=== PATIENT | female | born 1950 | race Caucasian/White ===

== ENCOUNTER 2021-03-20 22:53 | Observation (INO) | payer OTHER, SELFPAY ==
--- NOTE | ~2021-03-20 | MR_ITS ---
EXAMINATION: BRAIN MRI WITHOUT CONTRAST CLINICAL INFORMATION: Transient ischemic attack. COMPARISON: CT angiogram of the head and neck 03/21/2021. TECHNIQUE: Multiplanar MR imaging of the brain was performed without contrast. FINDINGS: There are numerous foci of T2 FLAIR signal hyperintensity within the periventricular white matter that most likely represent a chronic manifestation of small vessel ischemia. No acute territorial infarct. No pathological magnetic susceptibility artifact. Intracranial vascular flow voids are maintained. There is no intracranial mass effect or midline shift. No abnormal extra-axial collection. Lateral and third ventricles are normal. No hydrocephalus. Midline structures including the cervicomedullary junction are normal. No acute bone marrow signal changes. There is a right mastoid effusion. Mild mucosal thickening within ethmoid air cells. Globes and orbits are symmetric. MR/MR head/brain wo con IMPRESSION: There are scattered chronic small vessel ischemic changes within the periventricular white matter. No evidence of acute territorial infarct or hemorrhage.
--- NOTE | ~2021-03-20 | CT_ITS ---
EXAMINATION: Unenhanced CT the head; IV contrast enhanced CT angiography of the head and neck; delayed IV contrast-enhanced CT the head CLINICAL INFORMATION: Dysarthria, resolved. COMPARISON: None. TECHNIQUE: Routine unenhanced CT the head with multiple coronal and sagittal reformatted images; IV contrast enhanced CT angiography of the head and neck with multiple 3-D reformatted angiographic thick section MIPS images processed on the technologist workstation under concurrent supervision; delayed IV contrast-enhanced CT the head. Vascular stenoses are made with reference to the NASCET criteria less otherwise specified. This CT examination was performed using dose optimization techniques as appropriate, variously including the following: *Automated exposure control *Adjustment of mA and/or kV according to patient size (this includes techniques or standardized protocols for targeted exams where dose is matched to indication/reason for exam; i.e. extremities or head) *Use of iterative reconstruction technique Intravenous Contrast: Omnipaque 350 70 mL DLP: 2256 mGy-cm FINDINGS: Unenhanced and IV contrast-enhanced CT the head: Mild diffuse commensurate prominence of ventricles and sulci is noted. No intracranial hemorrhage, tumors or acute infarcts are visualized. Bilateral ocular lens extractions are noted. No abnormal enhancement the brain parenchyma is demonstrated. Normal intraluminal opacification is noted within the major intracranial dural sinuses. CT angiography neck: Minimal scattered nonocclusive calcific atherosclerosis is present within the transverse aorta. Common origin of the brachiocephalic and left common carotid arteries is noted. Mild (less than 50% bilateral carotid bulb stenoses are present on the basis of concentric calcific and noncalcific nonulcerative plaque. The left vertebral artery is dominant. CT angiography head: Bilateral type origin of the posterior cerebral arteries is identified. Minimal nonocclusive segmental calcific atherosclerosis of the cavernous portions of the internal carotid arteries is visualized. No large vessel intracranial occlusions are noted. Visualized lung apices are clear. The right lobe of the thyroid is absent and vascular clips are present in the right thyroid bed. No gross cervical lymphadenopathy is identified. Multilevel mild facet hypertrophic changes are visualized. CT/CT angio head neck IMPRESSION: Unenhanced and IV contrast-enhanced CT the head: 1. No acute abnormalities identified. No evidence of acute infarcts or intracranial hemorrhage. CT angiography neck: 1. Mild (less than 50%) bilateral carotid bulb stenoses. No ulcerative plaques. 2. Common origin of the brachiocephalic and left common carotid arteries. CT angiography head: 1. No large vessel intracranial occlusions. 2. Minimal nonocclusive segmental calcific atherosclerosis of the intracranial segments of the internal carotid arteries.
[2021-03-20 22:59] VITALS: BP 181/88; PULSE 67; O2SAT 99; BMI 23.8
--- NOTE | 2021-03-20 22:59 | ECG_ITS ---
Test Reason : STROKE? Blood Pressure : / mmHG Vent. Rate : 060 BPM Atrial Rate : 060 BPM P-R Int : 142 ms QRS Dur : 078 ms QT Int : 420 ms P-R-T Axes : 056 026 043 degrees QTc Int : 420 ms Normal sinus rhythm Normal ECG When compared with ECG of 22-JUL-2002 23:22, No significant change was found Referred By: Celeste Hemphill Electronically Signed By:TERRELL TONY
--- NOTE | 2021-03-20 23:02 | ED_ITS ---
HPI - Neuro Symptoms/Deficit General Chief Complaint: Stroke Stated Complaint: stroke alert Time Seen by Provider: 03/20/21 22:59 Source: patient and EMS Mode of arrival: EMS Limitations: no limitations History of Present Illness HPI Narrative: Patient comes to the emergency room complaining of stroke-like symptoms. Patient states that around 21:00, patient started having difficulty speaking. Patient states that she could not speak the words were a few seconds, she knew what she was trying to say but she had garbled speech, also, patient's daughter witnessed the above-mentioned. Patient denied any extremity weakness. EMS was called, by the time the patient arrived to the emergency room, all of the patient's symptoms resolved. Related Data Allergies Allergy/AdvReac Type Severity Reaction Status Date / Time No Known Allergies Allergy Unverified 03/31/20 16:12 Review of Systems Review of Systems: Constitutional : No Weight loss, No Fever, No Chills, No Night Sweats, No Fatigue, No Malaise ENT/Mouth : No Hearing loss, No Ear Pain, No Nasal Congestion, No Sinus Pain, No Hoarseness, No sore throat, No Rhinorrhea, No Swallowing Difficulty Eyes: No Eye Pain, No Swelling, No Redness, No Foreign Body, No Discharge, No Vision Changes Cardiovascular : No Chest Pain, No SOB, No Dyspnea on Exertion, No Orthopnea, No Edema, No Palpitations Respiratory : No Cough, No Sputum, No Wheezing, No Smoke Exposure, No Dyspnea Gastrointestinal : No Nausea, No Vomiting, No Diarrhea, No Constipation, No abdominal Pain, No Hematochezia, No Melena Genitourinary : no irregular bleeding, No Dysuria, No Urinary Frequency, No Hematuria, No Urinary Incontinence, No Urgency, No Flank Pain, No Urinary Flow Changes, No Hesitancy Musculoskeletal : No joint pain, No Myalgias, No Joint Swelling Skin : No Skin Lesions, No rash Neuro : No Weakness, No Numbness, No Paresthesias, No Loss of Consciousness, No Dizziness, No Headache, complaining of a few seconds to foot minutes of dysarthria Psych : No Anxiety/Panic, No Depression, No SI/HI/AH/VH, No Social Issues, Heme/Lymph: No Bruising, No Bleeding,No Lymphadenopathy Endocrine : No Polyuria, No Polydipsia, No Temperature Intolerance [facility] Past Medical History Medical History (Updated 03/21/21 @ 02:57 by Celeste Hemphill MD) Hyperparathyroidism Surgical History (Updated 03/20/21 @ 23:18 by Celeste Hemphill MD) H/O: hysterectomy Social History Social History Advance Directives: No Advance Directives Information Provided: No Physical Exam Vital Signs: Vital Signs: Last Vital Signs Pulse 70 03/21/21 02:12 Resp 17 03/21/21 01:00 BP 201/75 H 03/21/21 02:12 Pulse Ox 99 03/21/21 01:00 Body Mass Index 23.8 Const: Other: Appearance: Alert. Oriented X3. No acute distress. Eyes: Pupils equal, round and reactive to light. ENT: Pharynx normal. Neck: Normal inspection. Neck supple. No lymph nodes noted. No crepitus CVS: Normal heart rate and rhythm. Pulses normal. Normal S1 and S2 Respiratory: No respiratory distress. Breath sounds normal. No Wheezing. No rales Abdomen: Soft and nontender. No rigidity. No distention. good BS x4 Skin: Skin warm and dry. Normal skin color. Normal skin turgor. Extremities: No lower extremity edema. No lower extremity edema. No Lacerations. No Rash Neuro: Oriented X 3. No motor deficit. No sensory deficit. Moving all extermi ties. No slurred speech. Cranial nerves 2-12 are intact Course Course Course Narrative: By the time the patient arrived to the emergency room, all of her symptoms had resolved. NIH score of 0. Patient remains asymptomatic. CT and CTA do not show any acute abnormalities. Patient will be staying for further evaluation, patient likely had a TIA. Patient's blood pressure in the 200s, patient was given 200 mg of p.o. labetalol, currently 157 systolic. No chest pain, no shortness of breath, asy mptomatic. I discussed the patient with Dr. Law, patient being admitted. MDM - Neuro Symptoms/Deficit Lab Data Result diagrams: 03/20/21 23:23 03/20/21 23:23 Labs: Lab Results 03/20/21 03/20/21 03/20/21 Range/Units 22:59 23:03 23:23 WBC 4.0 L (4.8-10.8) X10*3/uL RBC 3.76 L (4.20-5.50) X10*6/uL Hgb 11.9 L (12.0-16.0) g/dl Hct 33.9 L (37-47) % MCV 90.2 (80-98) fL MCH 31.6 (27.0-33.0) pg MCHC 35.1 H (31.0-35.0) g/dl RDW 11.9 (11.0-16.0) % Plt Count 169 (160-400) X10*3/uL MPV 10.4 (9.4-12.3) fL Immature Gran % (Auto) 0.0 (0.0-0.4) % Neut % (Auto) 57.6 (45-73) % Lymph % (Auto) 29.0 (20-40) % Webb % (Auto) 10.9 (2-11) % Eos % (Auto) 2.0 (0-4) % Baso % (Auto) 0.5 (0-2) % Lymph # (Auto) 1.2 (1.2-4.9) X10*3/uL Webb # (Auto) 0.4 (0.1-1.2) X10*3/uL Eos # (Auto) 0.1 (0.0-0.4) X10*3/uL Baso # (Auto) 0.0 (0.0-0.2) X10*3/uL Abs Immat Gran (auto) 0.00 (0.00-0.03) X10*3/uL Absolute Neuts (auto) 2.3 (2.0-8.3) X10*3/uL Absolute Nucleated RBC 0.000 (0.0-0.012) X10*3/uL Nucleated RBC % (auto) 0.0 (0.0-0.2) /100WBC PT (9.9-13.0) SEC Whole Blood PT 12.7 (11.1-13.5) sec INR (0.9-1.1) Whole Blood INR 1.1 (0.9-1.1) Sodium (135-145) mmol/L Potassium (3.3-5.1) mmol/L Chloride (96-108) mmol/L Carbon Dioxide (22-29) mmol/L Anion Gap (12-20) BUN (9-16) mg/dL Creatinine (0.5-1.4) mg/dL Estim Creat Clear Calc Estimated GFR POC Glucose 112 (60-115) mg/dL Random Glucose (60-115) mg/dL Calcium (8.4-10.2) mg/dL Magnesium (1.6-2.6) mg/dL Total Bilirubin (0.0-1.0) mg/dL Direct Bilirubin (0.0-0.5) mg/dL AST (5-31) U/L ALT (0-31) U/L Alkaline Phosphatase (39-117) U/L Troponin I High Sens (<3.5-17.0) ng/L Total Protein (6.5-8.0) g/dL Albumin (3.5-5.0) g/dL Urine Color Urine Appearance Urine pH (5.0-8.0) Ur Specific [place] (1.005-1.025) Urine Protein (NEG-TRACE) MG/DL Urine Glucose (UA) (NEG) MG/DL Urine Ketones (NEG) MG/DL Urine Blood (NEG) Urine Nitrite (NEG) Ur Leukocyte Esterase (NEG) Urine RBC (0) /HPF Urine WBC (0-4) /HPF Ur Squamous Epith Cells /LPF Urine Bacteria /LPF Urine Opiates Screen (Not Detect) Urine Fentanyl Screen (Not Detect) Ur Barbiturates Screen (Not Detect) Ur Phencyclidine Scrn (Not Detect) Ur Amphetamines Screen (Not Detect) U Benzodiazepines Scrn (Not Detect) Urine Cocaine Screen (Not Detect) U Marijuana (THC) Screen (Not Detect) Ethyl Alcohol mg/dL COVID-19 (SUJEY) (Negative) COVID-19 Clin Com 03/20/21 03/20/21 03/20/21 Range/Units 23:23 23:23 23:23 WBC (4.8-10.8) X10*3/uL RBC (4.20-5.50) X10*6/uL Hgb (12.0-16.0) g/dl Hct (37-47) % MCV (80-98) fL MCH (27.0-33.0) pg MCHC (31.0-35.0) g/dl RDW (11.0-16.0) % Plt Count (160-400) X10*3/uL MPV (9.4-12.3) fL Immature Gran % (Auto) (0.0-0.4) % Neut % (Auto) (45-73) % Lymph % (Auto) (20-40) % Webb % (Auto) (2-11) % Eos % (Auto) (0-4) % Baso % (Auto) (0-2) % Lymph # (Auto) (1.2-4.9) X10*3/uL Webb # (Auto) (0.1-1.2) X10*3/uL Eos # (Auto) (0.0-0.4) X10*3/uL Baso # (Auto) (0.0-0.2) X10*3/uL Abs Immat Gran (auto) (0.00-0.03) X10*3/uL Absolute Neuts (auto) (2.0-8.3) X10*3/uL Absolute Nucleated RBC (0.0-0.012) X10*3/uL Nucleated RBC % (auto) (0.0-0.2) /100WBC PT 11.7 (9.9-13.0) SEC Whole Blood PT (11.1-13.5) sec INR 1.0 (0.9-1.1) Whole Blood INR (0.9-1.1) Sodium 139 (135-145) mmol/L Potassium 4.4 (3.3-5.1) mmol/L Chloride 110 H (96-108) mmol/L Carbon Dioxide 22 (22-29) mmol/L Anion Gap 11 L (12-20) BUN 14 (9-16) mg/dL Creatinine 0.66 (0.5-1.4) mg/dL Estim Creat Clear Calc 72.1 Estimated GFR > 60 POC Glucose (60-115) mg/dL Random Glucose 109 (60-115) mg/dL Calcium 8.8 (8.4-10.2) mg/dL Magnesium 2.2 (1.6-2.6) mg/dL Total Bilirubin 0.4 (0.0-1.0) mg/dL Direct Bilirubin < 0.2 (0.0-0.5) mg/dL AST 20 (5-31) U/L ALT 18 (0-31) U/L Alkaline Phosphatase 70 (39-117) U/L Troponin I High Sens < 3.5 (<3.5-17.0) ng/L Total Protein 6.3 L (6.5-8.0) g/dL Albumin 4.3 (3.5-5.0) g/dL Urine Color Urine Appearance Urine pH (5.0-8.0) Ur Specific [place] (1.005-1.025) Urine Protein (NEG-TRACE) MG/DL Urine Glucose (UA) (NEG) MG/DL Urine Ketones (NEG) MG/DL Urine Blood (NEG) Urine Nitrite (NEG) Ur Leukocyte Esterase (NEG) Urine RBC (0) /HPF Urine WBC (0-4) /HPF Ur Squamous Epith Cells /LPF Urine Bacteria /LPF Urine Opiates Screen (Not Detect) Urine Fentanyl Screen (Not Detect) Ur Barbiturates Screen (Not Detect) Ur Phencyclidine Scrn (Not Detect) Ur Amphetamines Screen (Not Detect) U Benzodiazepines Scrn (Not Detect) Urine Cocaine Screen (Not Detect) U Marijuana (THC) Screen (Not Detect) Ethyl Alcohol mg/dL COVID-19 (SUJEY) (Negative) COVID-19 Clin Com 03/20/21 03/21/21 03/21/21 Range/Units 23:23 00:55 00:55 WBC (4.8-10.8) X10*3/uL RBC (4.20-5.50) X10*6/uL Hgb (12.0-16.0) g/dl Hct (37-47) % MCV (80-98) fL MCH (27.0-33.0) pg MCHC (31.0-35.0) g/dl RDW (11.0-16.0) % Plt Count (160-400) X10*3/uL MPV (9.4-12.3) fL Immature Gran % (Auto) (0.0-0.4) % Neut % (Auto) (45-73) % Lymph % (Auto) (20-40) % Webb % (Auto) (2-11) % Eos % (Auto) (0-4) % Baso % (Auto) (0-2) % Lymph # (Auto) (1.2-4.9) X10*3/uL Webb # (Auto) (0.1-1.2) X10*3/uL Eos # (Auto) (0.0-0.4) X10*3/uL Baso # (Auto) (0.0-0.2) X10*3/uL Abs Immat Gran (auto) (0.00-0.03) X10*3/uL Absolute Neuts (auto) (2.0-8.3) X10*3/uL Absolute Nucleated RBC (0.0-0.012) X10*3/uL Nucleated RBC % (auto) (0.0-0.2) /100WBC PT (9.9-13.0) SEC Whole Blood PT (11.1-13.5) sec INR (0.9-1.1) Whole Blood INR (0.9-1.1) Sodium (135-145) mmol/L Potassium (3.3-5.1) mmol/L Chloride (96-108) mmol/L Carbon Dioxide (22-29) mmol/L Anion Gap (12-20) BUN (9-16) mg/dL Creatinine (0.5-1.4) mg/dL Estim Creat Clear Calc Estimated GFR POC Glucose (60-115) mg/dL Random Glucose (60-115) mg/dL Calcium (8.4-10.2) mg/dL Magnesium (1.6-2.6) mg/dL Total Bilirubin (0.0-1.0) mg/dL Direct Bilirubin (0.0-0.5) mg/dL AST (5-31) U/L ALT (0-31) U/L Alkaline Phosphatase (39-117) U/L Troponin I High Sens (<3.5-17.0) ng/L Total Protein (6.5-8.0) g/dL Albumin (3.5-5.0) g/dL Urine Color STRAW Urine Appearance CLEAR Urine pH 6.5 (5.0-8.0) Ur Specific [place] <= 1.005 (1.005-1.025) Urine Protein NEG (NEG-TRACE) MG/DL Urine Glucose (UA) NEG (NEG) MG/DL Urine Ketones NEG (NEG) MG/DL Urine Blood NEG (NEG) Urine Nitrite NEG (NEG) Ur Leukocyte Esterase TRACE H (NEG) Urine RBC 0-2 (0) /HPF Urine WBC 1-4 (0-4) /HPF Ur Squamous Epith Cells TRACE /LPF Urine Bacteria NONE /LPF Urine Opiates Screen (Not Detect) Urine Fentanyl Screen (Not Detect) Ur Barbiturates Screen (Not Detect) Ur Phencyclidine Scrn (Not Detect) Ur Amphetamines Screen (Not Detect) U Benzodiazepines Scrn (Not Detect) Urine Cocaine Screen (Not Detect) U Marijuana (THC) Screen (Not Detect) Ethyl Alcohol < 10 mg/dL COVID-19 (SUJEY) Negative (Negative) COVID-19 Clin Com See Note 03/21/21 Range/Units 00:55 WBC (4.8-10.8) X10*3/uL RBC (4.20-5.50) X10*6/uL Hgb (12.0-16.0) g/dl Hct (37-47) % MCV (80-98) fL MCH (27.0-33.0) pg MCHC (31.0-35.0) g/dl RDW (11.0-16.0) % Plt Count (160-400) X10*3/uL MPV (9.4-12.3) fL Immature Gran % (Auto) (0.0-0.4) % Neut % (Auto) (45-73) % Lymph % (Auto) (20-40) % Webb % (Auto) (2-11) % Eos % (Auto) (0-4) % Baso % (Auto) (0-2) % Lymph # (Auto) (1.2-4.9) X10*3/uL Webb # (Auto) (0.1-1.2) X10*3/uL Eos # (Auto) (0.0-0.4) X10*3/uL Baso # (Auto) (0.0-0.2) X10*3/uL Abs Immat Gran (auto) (0.00-0.03) X10*3/uL Absolute Neuts (auto) (2.0-8.3) X10*3/uL Absolute Nucleated RBC (0.0-0.012) X10*3/uL Nucleated RBC % (auto) (0.0-0.2) /100WBC PT (9.9-13.0) SEC Whole Blood PT (11.1-13.5) sec INR (0.9-1.1) Whole Blood INR (0.9-1.1) Sodium (135-145) mmol/L Potassium (3.3-5.1) mmol/L Chloride (96-108) mmol/L Carbon Dioxide (22-29) mmol/L Anion Gap (12-20) BUN (9-16) mg/dL Creatinine (0.5-1.4) mg/dL Estim Creat Clear Calc Estimated GFR POC Glucose (60-115) mg/dL Random Glucose (60-115) mg/dL Calcium (8.4-10.2) mg/dL Magnesium (1.6-2.6) mg/dL Total Bilirubin (0.0-1.0) mg/dL Direct Bilirubin (0.0-0.5) mg/dL AST (5-31) U/L ALT (0-31) U/L Alkaline Phosphatase (39-117) U/L Troponin I High Sens (<3.5-17.0) ng/L Total Protein (6.5-8.0) g/dL Albumin (3.5-5.0) g/dL Urine Color Urine Appearance Urine pH (5.0-8.0) Ur Specific [place] (1.005-1.025) Urine Protein (NEG-TRACE) MG/DL Urine Glucose (UA) (NEG) MG/DL Urine Ketones (NEG) MG/DL Urine Blood (NEG) Urine Nitrite (NEG) Ur Leukocyte Esterase (NEG) Urine RBC (0) /HPF Urine WBC (0-4) /HPF Ur Squamous Epith Cells /LPF Urine Bacteria /LPF Urine Opiates Screen Not Detected (Not Detect) Urine Fentanyl Screen Not Detected (Not Detect) Ur Barbiturates Screen Not Detected (Not Detect) Ur Phencyclidine Scrn Not Detected (Not Detect) Ur Amphetamines Screen Not Detected (Not Detect) U Benzodiazepines Scrn Not Detected (Not Detect) Urine Cocaine Screen Not Detected (Not Detect) U Marijuana (THC) Screen Not Detected (Not Detect) Ethyl Alcohol mg/dL COVID-19 (SUJEY) (Negative) COVID-19 Clin Com Imaging Data Head CT, CTA: Radiologist's impression: FINDINGS: Unenhanced and IV contrast-enhanced CT the head: Mild diffuse commensurate prominence of ventricles and sulci is noted. No intracranial hemorrhage, tumors or acute infarcts are visualized. Bilateral ocular lens extractions are noted. No abnormal enhancement the brain parenchyma is demonstrated. Normal intraluminal opacification is noted within the major intracranial dural sinuses. CT angiography neck: Minimal scattered nonocclusive calcific atherosclerosis is present within the transverse aorta. Common origin of the brachiocephalic and left common carotid arteries is noted. Mild (less than 50% bilateral carotid bulb stenoses are present on the basis of concentric calcific and noncalcific nonulcerative plaque. The left vertebral artery is dominant. CT angiography head: Bilateral type origin of the posterior cerebral arteries is identified. Minimal nonocclusive segmental calcific atherosclerosis of the cavernous portions of the internal carotid arteries is visualized. No large vessel intracranial occlusions are noted. Visualized lung apices are clear. The right lobe of the thyroid is absent and vascular clips are present in the right thyroid bed. No gross cervical lymphadenopathy is identified. Multilevel mild facet hypertrophic changes are visualized. CT/CT angio head neck IMPRESSION: Unenhanced and IV contrast-enhanced CT the head: 1. No acute abnormalities identified. No evidence of acute infarcts or intracranial hemorrhage. ? CT angiography neck: 1. Mild (less than 50%) bilateral carotid bulb stenoses. No ulcerative plaques. 2. Common origin of the brachiocephalic and left common carotid arteries. ? CT angiography head: 1. No large vessel intracranial occlusions. 2. Minimal nonocclusive segmental calcific atherosclerosis of the intracranial segments of the internal carotid arteries. ? ECG Data Attestation: I personally reviewed and interpreted this ECG as follows: (Normal sinus rhythm, heart rate 60, no ST segment depression or elevation, no T-wave inversion, QTC 420) NIH Stroke Scale Level of Consciousness: Alert Level of Consciousness Questions: Answers both questions correctly Level of Consciousness Commands: Performs both tasks correctly Best Gaze: Normal Visual: No visual loss Facial Palsy: Normal Motor Arm (Right): No drift Motor Arm (Left): No drift Motor Leg (Right): No drift Motor Leg (Left): No drift Limb Ataxia: Absent Sensory: Normal Best Language: No aphasia Dysarthia: Normal Extinction and Inattention: No abnormality Score: 0 Discharge Plan Discharge Clinical Impression: Brain TIA, Hypertension Patient Disposition: Admitted as Observation
[2021-03-20 23:05] LABS: Glucose, Whole Blood 112 mg/dL (60-115)
[2021-03-20 23:11] LABS: Prothrombin Time Whole Bld POC 12.7 sec (11.1-13.5); ~PT, ~INR - Anti Coag Clinic 1.1 (0.9-1.1)
[2021-03-20 23:32] LABS: Basophils Percent Auto 0.5 % (0-2); Eosinophils Absolute Auto 0.1 X10*3/uL (0.0-0.4); Hematocrit 33.9 % (37-47); Hemoglobin 11.9 g/dl (12.0-16.0); Lymphocytes Absolute Auto 1.2 X10*3/uL (1.2-4.9); Mean Corpuscular HGB Conc 35.1 g/dl (31.0-35.0); Mean Corpuscular Hemoglobin 31.6 pg (27.0-33.0); Mean Corpuscular Volume 90.2 fL (80-98); Mean Platelet Volume 10.4 fL (9.4-12.3); Monocytes Absolute Auto 0.4 X10*3/uL (0.1-1.2); Monocytes Percent Auto 10.9 % (2-11); Neutrophils Absolute Auto 2.3 X10*3/uL (2.0-8.3); Neutrophils Percent Auto 57.6 % (45-73); Platelet Count 169 X10*3/uL (160-400); Red Blood Count 3.76 X10*6/uL (4.20-5.50); Red Cell Distribution Width 11.9 % (11.0-16.0)
[2021-03-20 23:33] LABS: MANUAL DIFF FLAG NO
[2021-03-20 23:37] LABS: Prothrombin Time 11.7 SEC (9.9-13.0)
[2021-03-20 23:44] LABS: Ethanol < 10 mg/dL
[2021-03-20 23:47] LABS: Alanine Aminotransferase 18 U/L (0-31); Albumin Level 4.3 g/dL (3.5-5.0); Alkaline Phosphatase 70 U/L (39-117); Anion Gap 11 (12-20); Aspartate Amino Transferase 20 U/L (5-31); Bilirubin Direct < 0.2 mg/dL (0.0-0.5); Bilirubin Total 0.4 mg/dL (0.0-1.0); Blood Urea Nitrogen 14 mg/dL (9-16); Calcium 8.8 mg/dL (8.4-10.2); Carbon Dioxide 22 mmol/L (22-29); Chloride 110 mmol/L (96-108); Creatinine Clr Calc Pharmacy 72.1; Estimated Glomerular Filt Rate > 60; Glucose Random 109 mg/dL (60-115); Magnesium 2.2 mg/dL (1.6-2.6); Potassium 4.4 mmol/L (3.3-5.1); Sodium 139 mmol/L (135-145); Total Protein 6.3 g/dL (6.5-8.0)
[2021-03-20 23:51] LABS: Troponin-I High Sensitivity < 3.5 ng/L (<3.5-17.0)
[2021-03-21 01:00] VITALS: BP 188/72; PULSE 65; RESP 17; O2SAT 99
[2021-03-21] MEDS: iohexoL 350 MG/ML 100 ML INFUS..BTL 70 ML IV (01:08)
[2021-03-21 01:13] LABS: Glucose Urine UA NEG (NEG); Leukocyte Esterase Urine TRACE (NEG); Nitrite Urine NEG (NEG); PH 6.5 (5.0-8.0); Specific Gravity - Urine <= 1.005 (1.005-1.025); UACC Culture Trigger YES; Urine Blood NEG (NEG); Urine Ketones NEG (NEG); Urine Protein NEG (NEG-TRACE)
[2021-03-21 01:19] LABS: Appearance Urine CLEAR; Color Urine STRAW
[2021-03-21 01:20] LABS: COVID-19 Test Negative (Negative); IDNOW Serial# 9DD0AD1C
[2021-03-21 01:23] LABS: Amphetamine Screen Urine Not Detected (Not Detect); Barbiturates, Urine Not Detected (Not Detect); Benzodiazepines Screen Urine Not Detected (Not Detect); Cannabinoid Screen Urine Not Detected (Not Detect); Cocaine Screen Urine Not Detected (Not Detect); Fentanyl, urine Not Detected (Not Detect); Opiate Screen Urine Not Detected (Not Detect); Phencyclidine Screen Urine Not Detected (Not Detect)
[2021-03-21 01:27] VITALS: BP 160/93; PULSE 62
[2021-03-21] MEDS: Labetalol HCL 100 MG TABLET PO ×2 (01:27→02:12)
[2021-03-21 01:48] LABS: RBC Urine 0-2 /HPF (0); Squamous Epithelial Cell Urine TRACE /LPF
[2021-03-21 02:12] VITALS: BP 201/75; PULSE 70
[2021-03-21 03:00] VITALS: BP 130/76
--- NOTE | 2021-03-21 03:58 | PC.NURSE ---
angelo Pacheco updated via phone per pt request [phone]
--- NOTE | 2021-03-21 05:37 | PM.IMHP ---
History of Present Illness Date of Service: 03/21/21 Chief Complaint: dysarrthria 71-year-old female with past medical history of hyperparathyroidism who presents to the hospital with complaints of transient episode of inability to talk and or comprehend speech. Patient reports that she was talking to her daughter when all of a sudden she could not understand what her daughter was saying to her and when she tried talking she also that came out was drip bridged and she could not understand what she was saying. This lasted few minutes and resolved spontaneously. Patient reports no weakness numbness or tingling in her arms or legs, no recurrence or previous similar episode. No facial droop. she feels back to her baseline. Denies any chest pain palpitations or shortness of breath. No cough , no abdominal pain nausea or vomiting, no diarrhea or constipation, no urinary symptoms and no lower extremity edema. She reports that she has been under extreme pressure for the past 3 months she is raising her granddaughter who is 1-year-old due to her daughters substance abuse. On arrival to the ED patient hemodynamically stable except for a blood pressure of 188/72 with no history of hypertension labs significant for WBC count of 4.0, otherwise unremarkable. Patient has UA that is positive for leukocyte Estrace but asymptomatic. CTA of head and neck showed mild bilateral carotid bulb stenosis ( less than 50 present). , no large vessel intracranial occlusions. Minimal nonocclusive segmental calcific atherosclerosis of center cranial segments of the internal c Patient will be admitted under observation Review of Systems Review of Systems: Yes all other systems are reviewed and are negative [facility] Medical History Hyperparathyroidism Surgical History H/O: hysterectomy Social History Advance Directives: No Advance Directives Information Provided: No Meds Allergies Allergy/AdvReac Type Severity Reaction Status Date / Time No Known Allergies Allergy Unverified 03/31/20 16:12 Physical Exam Vital Signs and Narrative: Vital Signs: Last Vital Signs Pulse 70 03/21/21 02:12 Resp 17 03/21/21 01:00 BP 130/76 03/21/21 03:00 Pulse Ox 99 03/21/21 01:00 Body Mass Index 23.8 Const: General: cooperative and no acute distress Orientation/consciousness: patient oriented x3 Eyes: General: appearance normal, both eyes and all related structures Pupils: Equal, round and reactive pupils present Resp: Effort & Inspection: normal respiratory effort and able to speak in complete sentences Auscultation: clear to auscultation bilaterally Cardio: Rate: regular rate Rhythm: regular rhythm GI: Palpation (GI): Soft to palpation Auscultation: normal bowel sounds Skin: General skin exam: no rashes or lesions noted Neuro: Other: intracranial low 2-12 intact strength is 5/5 in all extremities, no neurological deficits General: patient oriented x3 Cranial nerves: Yes Equal, round and reactive pupils present Cognition (Neuro): normal cognition Extrem: General: Yes normal to inspection and Yes no pedal edema Results Labs CBC and Chem 7: 03/20/21 23:23 03/20/21 23:23 Labs: Laboratory Results - last 24 hr 03/20/21 03/20/21 03/20/21 22:59 23:03 23:23 MCV 90.2 MCH 31.6 MCHC 35.1 H RDW 11.9 Plt Count 169 MPV 10.4 Immature Gran % (Auto) 0.0 Neut % (Auto) 57.6 Lymph % (Auto) 29.0 [place] % (Auto) 10.9 Eos % (Auto) 2.0 Baso % (Auto) 0.5 Lymph # (Auto) 1.2 [place] # (Auto) 0.4 Eos # (Auto) 0.1 Baso # (Auto) 0.0 Abs Immat Gran (auto) 0.00 Absolute Neuts (auto) 2.3 Absolute Nucleated RBC 0.000 Nucleated RBC % (auto) 0.0 PT Whole Blood PT 12.7 INR Whole Blood INR 1.1 Anion Gap Estim Creat Clear Calc Estimated GFR POC Glucose 112 Random Glucose Calcium Magnesium Total Bilirubin Direct Bilirubin AST ALT Alkaline Phosphatase Troponin I High Sens Total Protein Albumin Urine Color Urine Appearance Urine pH Ur Specific [place] Urine Protein Urine Glucose (UA) Urine Ketones Urine Blood Urine Nitrite Ur Leukocyte Esterase Urine RBC Urine WBC Ur Squamous Epith Cells Urine Bacteria Urine Opiates Screen Urine Fentanyl Screen Ur Barbiturates Screen Ur Phencyclidine Scrn Ur Amphetamines Screen U Benzodiazepines Scrn Urine Cocaine Screen U Marijuana (THC) Screen Ethyl Alcohol COVID-19 (SUJEY) COVID-19 Clin Com 03/20/21 03/20/21 03/20/21 23:23 23:23 23:23 MCV MCH MCHC RDW Plt Count MPV Immature Gran % (Auto) Neut % (Auto) Lymph % (Auto) [place] % (Auto) Eos % (Auto) Baso % (Auto) Lymph # (Auto) [place] # (Auto) Eos # (Auto) Baso # (Auto) Abs Immat Gran (auto) Absolute Neuts (auto) Absolute Nucleated RBC Nucleated RBC % (auto) PT 11.7 Whole Blood PT INR 1.0 Whole Blood INR Anion Gap 11 L Estim Creat Clear Calc 72.1 Estimated GFR > 60 POC Glucose Random Glucose 109 Calcium 8.8 Magnesium 2.2 Total Bilirubin 0.4 Direct Bilirubin < 0.2 AST 20 ALT 18 Alkaline Phosphatase 70 Troponin I High Sens < 3.5 Total Protein 6.3 L Albumin 4.3 Urine Color Urine Appearance Urine pH Ur Specific [place] Urine Protein Urine Glucose (UA) Urine Ketones Urine Blood Urine Nitrite Ur Leukocyte Esterase Urine RBC Urine WBC Ur Squamous Epith Cells Urine Bacteria Urine Opiates Screen Urine Fentanyl Screen Ur Barbiturates Screen Ur Phencyclidine Scrn Ur Amphetamines Screen U Benzodiazepines Scrn Urine Cocaine Screen U Marijuana (THC) Screen Ethyl Alcohol COVID-19 (SUJEY) COVID-19 Clin Com 03/20/21 03/21/21 03/21/21 23:23 00:55 00:55 MCV MCH MCHC RDW Plt Count MPV Immature Gran % (Auto) Neut % (Auto) Lymph % (Auto) [place] % (Auto) Eos % (Auto) Baso % (Auto) Lymph # (Auto) [place] # (Auto) Eos # (Auto) Baso # (Auto) Abs Immat Gran (auto) Absolute Neuts (auto) Absolute Nucleated RBC Nucleated RBC % (auto) PT Whole Blood PT INR Whole Blood INR Anion Gap Estim Creat Clear Calc Estimated GFR POC Glucose Random Glucose Calcium Magnesium Total Bilirubin Direct Bilirubin AST ALT Alkaline Phosphatase Troponin I High Sens Total Protein Albumin Urine Color STRAW Urine Appearance CLEAR Urine pH 6.5 Ur Specific [place] <= 1.005 Urine Protein NEG Urine Glucose (UA) NEG Urine Ketones NEG Urine Blood NEG Urine Nitrite NEG Ur Leukocyte Esterase TRACE H Urine RBC 0-2 Urine WBC 1-4 Ur Squamous Epith Cells TRACE Urine Bacteria NONE Urine Opiates Screen Urine Fentanyl Screen Ur Barbiturates Screen Ur Phencyclidine Scrn Ur Amphetamines Screen U Benzodiazepines Scrn Urine Cocaine Screen U Marijuana (THC) Screen Ethyl Alcohol < 10 COVID-19 (SUJEY) Negative COVID-19 Clin Com See Note 03/21/21 00:55 MCV MCH MCHC RDW Plt Count MPV Immature Gran % (Auto) Neut % (Auto) Lymph % (Auto) [place] % (Auto) Eos % (Auto) Baso % (Auto) Lymph # (Auto) [place] # (Auto) Eos # (Auto) Baso # (Auto) Abs Immat Gran (auto) Absolute Neuts (auto) Absolute Nucleated RBC Nucleated RBC % (auto) PT Whole Blood PT INR Whole Blood INR Anion Gap Estim Creat Clear Calc Estimated GFR POC Glucose Random Glucose Calcium Magnesium Total Bilirubin Direct Bilirubin AST ALT Alkaline Phosphatase Troponin I High Sens Total Protein Albumin Urine Color Urine Appearance Urine pH Ur Specific [place] Urine Protein Urine Glucose (UA) Urine Ketones Urine Blood Urine Nitrite Ur Leukocyte Esterase Urine RBC Urine WBC Ur Squamous Epith Cells Urine Bacteria Urine Opiates Screen Not Detected Urine Fentanyl Screen Not Detected Ur Barbiturates Screen Not Detected Ur Phencyclidine Scrn Not Detected Ur Amphetamines Screen Not Detected U Benzodiazepines Scrn Not Detected Urine Cocaine Screen Not Detected U Marijuana (THC) Screen Not Detected Ethyl Alcohol COVID-19 (SUJEY) COVID-19 Clin Com ECG Interpretation: normal sinus rhythm with no ST T-wave changes Imaging Radiologist's Impressions: Impressions Head/Neck CTA 03/21/21 00:03 IMPRESSION: Unenhanced and IV contrast-enhanced CT the head: 1. No acute abnormalities identified. No evidence of acute infarcts or intracranial hemorrhage. CT angiography neck: 1. Mild (less than 50%) bilateral carotid bulb stenoses. No ulcerative plaques. 2. Common origin of the brachiocephalic and left common carotid arteries. CT angiography head: 1. No large vessel intracranial occlusions. 2. Minimal nonocclusive segmental calcific atherosclerosis of the intracranial segments of the internal carotid arteries. Assessment and Plan (1) Dysarthria: Status: Acute (2) Brain TIA: Status: Acute (3) Hypertension: Status: Acute 71-year-old female with past medical history of hyperparathyroidism presents to the hospital with complaints of transient episode of dysarthria # dysarthria - most likely secondary to TIA - has no obvious risk factors - resolved - CTA negative - at this time will admit for observation in order MRI - neurology consulted # hypertension - possibly reactive secondary to TIA - patient received labetalol in the ED - blood pressure down - will monitor of any hypertensives DVT prophylaxis: Lovenox Quality Stroke Does the patient have a stroke diagnosis?: No VTE Prior VTE?: No VTE Risk Level:: Medical - moderate - high VTE Device Contraindication: Treatment Not Indicated VTE Drug Contraindication: N/A - Med Ordered
--- NOTE | 2021-03-21 08:01 | PHA.MEDREC ---
Pharmacy Consult ? Medication Reconciliation Pharmacy has completed the medication reconciliation. There are no remarkable issues for provider's attention. Irena Caldwell, TahminaD
--- NOTE | 2021-03-21 09:07 | MHC.CM.PN ---
Attempted to meet with patient in regards to discharge planning. Patient currently in MRI. Spoke with patient's son, Junior via telephone at [phone]. Patient lives with her daughter, ambulates independently and had no services prior to coming to the hospital. PCP is listed as Dr Wang. However, per Dr Wang's office she is not active with their office. Junior is unsure of PCP info. No HCP on file. Obs notice explained and left bedside. Patient may need PT/OT evals for home safety when medically stable. Family will transport home. Continue to monitor for d/c needs.
[2021-03-21] MEDS: Enoxaparin Sodium 40 MG/0.4 ML SYRINGE SUBCUT (10:17)
[2021-03-21] MEDS: Pravastatin Sodium 40 MG TABLET PO (10:17)
[2021-03-21] MEDS: Aspirin Enteric Coated 81 MG TABLET.DR PO (10:17)
[2021-03-21 12:39] VITALS: BP 123/52; PULSE 56; RESP 16; O2SAT 98
[2021-03-21 15:32] VITALS: BP 127/60; PULSE 61; RESP 16; TEMP 37.1; O2SAT 99
--- NOTE | 2021-04-10 13:42 | P.DS_ITS ---
DS: Providers Provider Date of Service: 03/21/21 Date of admission: 03/21/21 05:36 Date of discharge: 03/21/21 Primary care physician: Unknown Physician Consults: 03/21/21 05:52 Consult to Neurology Routine Consulting Provider: [facility] Reason for consultation: TIA Has provider been notified: No DS: Diagnosis Discharge Diagnosis (1) Dysarthria: Status: Acute (2) Brain TIA: Status: Acute (3) Hypertension: Status: Acute DS: Summary Hospital Course Hospital Course: 71-year-old female with past medical history of? hyperparathyroidism who presents to the hospital with complaints of transient episode of inability to talk and or comprehend speech.? Patient reports that she was talking to her daughter when all of a sudden she could not understand what her daughter was saying to her and when she tried talking she also that came out was drip bridged and she could not understand what she was saying.? This lasted few minutes and resolved spontaneously.? Patient reports no weakness numbness or tingling in her arms or legs, no recurrence or previous similar episode.? No facial droop.? she feels back to her baseline. Denies any chest pain palpitations or shortness of breath.? No cough , no abdominal pain nausea or vomiting, no diarrhea or constipation, no urinary symptoms and no lower extremity edema.? She reports that she has been under extreme pressure for the past 3 months she is raising her granddaughter who is 1-year-old due to her daughters substance abuse. ? On arrival to the ED patient hemodynamically stable except for a blood pressure of 188/72 with no history of hypertension ?labs significant for WBC count of 4.0, otherwise unremarkable.? Patient has UA that is positive for leukocyte Estrace but asymptomatic. ? CTA of head and neck showed mild bilateral carotid bulb stenosis ( less than 50 present). , no large vessel intracranial occlusions.? Minimal nonocclusive segmental calcific atherosclerosis of center cranial segments Hospital course: Patient came with TIA like symptoms-seems resolved. CT head and MRI seems negative. Advised to continue baby aspirin check lipid panel with pcp. Follow-up with PCP out patiently consider outpatient neurology evaluation. Also have found to have elevated blood pressure and received labetalol on admission: Blood pressure is trending down she also had stressful situation Advised lifestyle modifications including low-salt diet exercise and monitor blood pressure at home Limited amlodipine supply was given, can be started if blood pressure stays consistently above 140 mm Hg and follow-up with PCP. Above management discussed with the patient in detail length she understand and in agreement with the above plan, time spent 50 minutes and 50% time spent on counseling. Significant findings: As above. Procedures performed: None. Treatment and response: As above. Complications: None. Time Spent with Patient Time attestation: Total time spent providing and/or coordinating discharge services: Discharge coordination time: Greater than 30 minutes Quality: Stroke Does the patient have a stroke diagnosis?: No Physical Exam Vital Signs: Vital Signs: Last Vital Signs Temp 98.7 F 03/21/21 15:32 Pulse 61 03/21/21 15:32 Resp 16 03/21/21 15:32 BP 127/60 03/21/21 15:32 Pulse Ox 99 03/21/21 15:32 Body Mass Index 23.8 Appearance: Alert.? Oriented X3.? not in distress.? Eyes: Pupils equal, round and reactive to light.? Sclera nonicteric.? ENT: Pharynx normal.? Moist mucous membranes. cvs: rrr, [id number] , no murmur res: clear to auscultation ,no rhonchii or wheezing abd: no rebound or guarding ,nt, bs present. ext pulses present , no cyanosis ,Gait well balanced well coordinated. neuro: axo3 , nonfocal. Discharge Plan Discharge Patient Disposition: Home, Self-Care Discharge Diagnosis: tia Referrals: Physician,Unknown [Primary Care Provider] - 1 Week Discharge Medications: New aspirin 81 mg Tablet,Delayed Release (Dr/Ec) 81 mg PO DAILY Qty: 30 RF: 0 amlodipine 2.5 mg tablet 2.5 mg PO DAILY Qty: 14 RF: 0 (DME) blood pressure monitor Kit See Rx Instructions .Route Qty: 1 RF: 0 Continued alendronate 70 mg tablet 1 tab PO TH RF: 0 levothyroxine 88 mcg tablet 1 tab PO DAILY@0630 RF: 0 calcium carbonate-vitamin D3 600 mg(1,500mg) -200 unit Tablet 1 tab PO DAILY RF: 0 Discharge Orders: Discharge Order (Routine); Ordered 03/21/21 Ordered By: Nathaniel Hale Diet: advance to usual diet, low fat, low cholesterol and low salt diet Activity on Discharge: As tolerated Stand Alone Forms: Patient Portal Discharge page Care Plan Goals: Patient came with TIA like symptoms-seems resolved. CT head and MRI seems negative. Advised to continue baby aspirin check lipid panel with pcp. Follow-up with PCP out patiently consider outpatient neurology evaluation. Also have found to have elevated blood pressure and received labetalol on admission: Blood pressure is trending down she also had stressful situation Advised lifestyle modifications including low-salt diet exercise and monitor blood pressure at home Limited amlodipine supply was given, can be started if blood pressure stays consistently above 140 mm Hg and follow-up with PCP. Health Concerns: As above. Plan of Treatment: As above. Assessment: As above. Discharge Date/Time: 03/21/21 15:38
== END 2021-03-21 15:38 | disposition home or self-care (01) ==
LOC: HO.ED 03-21 02:57 → HO.EDOVER 03-21 05:45 → HO.IMC 03-21 14:40 → HO.EDOVER 03-21 15:29
PROVIDERS: Admitting Provider Internal Medicine; Emergency Provider Emergency Medicine; Visit Provider Internal Medicine
DX: G45.9 Transient cerebral ischemic attack, unspecified (principal); R47.1 Dysarthria and anarthria; I10 Essential (primary) hypertension; E21.3 Hyperparathyroidism, unspecified; Z20.822 Contact with and (suspected) exposure to COVID-19
CPT/HCPCS: 36415; 70496; 70498; 70551; 80048; 80076; 80307; 81001; 82077; 82947; 83735; 84484; 85025; 85610; 87086; 87635; 93005; 99219; 99285; J1650; Q9967

== ENCOUNTER 2023-09-05 22:47 | Emergency (ER) | payer OTHER, SELFPAY ==
--- NOTE | ~2023-09-05 | XR_ITS ---
EXAMINATION: XR HIP, LEFT CLINICAL INFORMATION: Pain COMPARISON: None available. TECHNIQUE: Two views of the left hip. One view of the pelvis FINDINGS: No fracture. Alignment is anatomic. Hip joint space is maintained. Sclerotic density projecting over the acetabulum probably representing a bone island. Soft tissues are unremarkable. Large amount of stool colon questionable for constipation. XR/XR hip LT w PEL1V IMPRESSION: 1. Normal left hip. 2. Large amount of stool in the colon questionable for constipation.
[2023-09-05 23:18] VITALS: BP 165/64; PULSE 65; RESP 20; TEMP 36.6; O2SAT 99; BMI 21.8
--- NOTE | 2023-09-06 01:40 | ED_ITS ---
HPI - Extremity Injury (Lower) General Chief Complaint: Extremity Injury, Lower Stated Complaint: left hip pain radiating down the leg Time Seen by Provider: 09/06/23 01:30 Source: patient Mode of arrival: ambulatory Limitations: no limitations History of Present Illness HPI Narrative: Patient comes to the emergency room complaining of 7 hours of left leg lateral pain. Patient states that she was out shopping, does not recall any injury when suddenly her left leg started hurting. Patient states that any time she abducts her leg, it hurts on the lateral aspect of the leg. Patient states the pain goes all the way from the hip towards the knee along the leg large thigh. Related Data Home Medications Medication Instructions Recorded Confirmed alendronate 70 mg tablet 1 tab PO TH 03/21/21 03/21/21 calcium carbonate 600 mg-vitamin 1 tab PO DAILY 03/21/21 03/21/21 D3 5 mcg (200 unit) tablet levothyroxine 88 mcg tablet 1 tab PO DAILY@0630 03/21/21 03/21/21 Previous Rx's Medication Instructions Recorded amlodipine 2.5 mg tablet 2.5 mg PO DAILY #14 tabs 03/21/21 aspirin 81 mg tablet,delayed 81 mg PO DAILY #30 tabs 03/21/21 release blood pressure monitor #1 ea 03/21/21 cyclobenzaprine 5 mg tablet 5 mg PO TID PRN muscle spasm #10 09/06/23 tabs ketorolac 10 mg tablet 10 mg PO TID PRN pain #10 tabs 09/06/23 Allergies Allergy/AdvReac Type Severity Reaction Status Date / Time No Known Allergies Allergy Verified 09/05/23 23:24 Review of Systems Review of Systems: Constitutional : No Weight loss, No Fever, No Chills, No Night Sweats, No Fatigue, No Malaise ENT/Mouth : No Hearing loss, No Ear Pain, No Nasal Congestion, No Sinus Pain, No Hoarseness, No sore throat, No Rhinorrhea, No Swallowing Difficulty Eyes: No Eye Pain, No Swelling, No Redness, No Foreign Body, No Discharge, No Vision Changes Cardiovascular : No Chest Pain, No SOB, No Dyspnea on Exertion, No Orthopnea, No Edema, No Palpitations Respiratory : No Cough, No Sputum, No Wheezing, No Smoke Exposure, No Dyspnea Gastrointestinal : No Nausea, No Vomiting, No Diarrhea, No Constipation, No abdominal Pain, No Hematochezia, No Melena Genitourinary : no irregular bleeding, No Dysuria, No Urinary Frequency, No Hematuria, No Urinary Incontinence, No Urgency, No Flank Pain, No Urinary Flow Changes, No Hesitancy Musculoskeletal : Complaining of left lateral thigh pain, No joint pain, No M yalgias, No Joint Swelling Skin : No Skin Lesions, No rash Neuro : No Weakness, No Numbness, No Paresthesias, No Loss of Consciousness, No Dizziness, No Headache Psych : No Anxiety/Panic, No Depression, No SI/HI/AH/VH, No Social Issues, Heme/Lymph: No Bruising, No Bleeding,No Lymphadenopathy Endocrine : No Polyuria, No Polydipsia, No Temperature Intolerance PMFSH Past Medical History Medical History Hyperparathyroidism Surgical History H/O: hysterectomy Social History Social History Advance Directives: No Advance Directives Information Provided: Yes service: No Current occupational status: employed Physical Exam Vital Signs: Vital Signs: Last Vital Signs Temp 97.9 F 09/05/23 23:18 Pulse 65 09/05/23 23:18 Resp 20 09/05/23 23:18 BP 165/64 H 09/05/23 23:18 Pulse Ox 99 09/05/23 23:18 O2 Del Method Room Air 09/05/23 23:18 BMI result Body Mass Index 21.8 Const: Other: Appearance: Alert. Oriented X3. No acute distress. Eyes: Pupils equal, round and reactive to light. ENT: Pharynx normal. Neck: Normal inspection. Neck supple. No lymph nodes noted. No crepitus CVS: Normal heart rate and rhythm. Pulses normal. Normal S1 and S2 Respiratory: No respiratory distress. Breath sounds normal. No Wheezing. No rales Abdomen: Soft and nontender. No rigidity. No distention. Skin: Skin warm and dry. Normal skin color. Normal skin turgor. Extremities: No lower extremity edema. No Lacerations. No Rash. Pain to palpation over the lateral aspect of the left thigh, pain with leg and hip abduction Neuro: Oriented X 3. No motor deficit. No sensory deficit. Moving all extremities. No slurred speech. CN 2 through 12 grossly intact. Psych: calm, cooperative, normal affect Medical Decision Making Medical Decision Making MDM Narrative: -my interpretation of x-ray of the hip: No subluxation, no fracture. -patient has pain to palpation along the ice event. -patient offered IM Toradol. At home she will take muscle relaxants. -I discussed with the patient that if the pain does not improve within a week, she may need physical therapy. Patient agrees with plan - Differential Diagnosis Differential Diagnoses: The differential diagnosis associated with the presentation includes (Hip contusion, contusion, subluxation, fracture, musculoskeletal pain) Independent Interpretation I performed an independent interpretation of an: Plain X-Ray Radiology Impression Discussion of test interpretation with radiology: I have reviewed the radiologist's reading. Radiologist Impression: FINDINGS: No fracture. Alignment is anatomic. Hip joint space is maintained. Sclerotic density projecting over the acetabulum probably representing a bone island. Soft tissues are unremarkable. Large amount of stool colon questionable for constipation. XR/XR hip LT w PEL1V IMPRESSION: 1. Normal left hip. 2. Large amount of stool in the colon questionable for constipation. Discharge Plan Discharge Clinical Impression: Iliotibial band syndrome Patient Disposition: Home, Self-Care Instructions: Iliotibial Band Syndrome (ED) Additional Instructions: Please follow-up with your primary care physician tomorrow. If you have any worsening or new symptoms, please return to the emergency room or call 911 Prescriptions: New ketorolac 10 mg tablet 10 mg PO TID PRN (Reason: pain) Qty: 10 0RF cyclobenzaprine 5 mg tablet 5 mg PO TID PRN (Reason: muscle spasm) Qty: 10 0RF Rx Instructions: Do not drive or use machinery after taking this medication No Action alendronate 70 mg tablet 1 tab PO TH levothyroxine 88 mcg tablet 1 tab PO DAILY@0630 calcium carbonate-vitamin D3 600 mg(1,500mg) -200 unit Tablet 1 tab PO DAILY aspirin 81 mg Tablet,Delayed Release (Dr/Ec) 81 mg PO DAILY Qty: 30 0RF amlodipine 2.5 mg tablet 2.5 mg PO DAILY Qty: 14 0RF (DME) blood pressure monitor Kit See Rx Instructions .Route Qty: 1 0RF Rx Instructions: As directed Stand Alone Forms: Work/School Release
[2023-09-06] MEDS: Ketorolac Tromethamine 60 MG/2 ML VIAL IM (02:13)
[2023-09-06 02:25] VITALS: BP 154/54; PULSE 74; RESP 17; TEMP 36.6; O2SAT 98
== END 2023-09-06 02:28 | disposition home or self-care (01) ==
PROVIDERS: Emergency Provider Emergency Medicine; PCP Internal Medicine
DX: M76.32 Iliotibial band syndrome, left leg (principal); M79.652 Pain in left thigh; M79.662 Pain in left lower leg; E21.3 Hyperparathyroidism, unspecified; Z79.899 Other long term (current) drug therapy
CPT/HCPCS: 73502; 96372; 99284; J1885

== ENCOUNTER 2024-11-16 02:47 | Emergency (ER) | payer OTHER, SELFPAY ==
[2024-11-16 02:54] VITALS: BP 190/84; BP 191/86; PULSE 72; PULSE 84; RESP 16; TEMP 36.4; O2SAT 98; O2SAT 99; BMI 25.7
--- NOTE | 2024-11-16 03:00 | ECG_ITS ---
Test Reason : HYPERTENSION Blood Pressure : */* mmHG Vent. Rate : 59 BPM Atrial Rate : 59 BPM P-R Int : 140 ms QRS Dur : 84 ms QT Int : 416 ms P-R-T Axes : 52 25 66 degrees QTcB Int : 411 ms Sinus bradycardia Otherwise normal ECG When compared with ECG of 20-Mar-2021 23:13, No significant change was found Referred By: Celeste Hemphill Electronically Signed By: REGLA WHEELER
[2024-11-16 03:01] VITALS: BP 191/86; PULSE 72; RESP 16; TEMP 36.4; O2SAT 99
--- NOTE | 2024-11-16 03:05 | ED.GENADULT ---
HPI - General Adult General Chief complaint: General Medical Stated complaint: HTN 190/84, Dehydration Time Seen by Provider: 11/16/24 02:50 Source: patient and EMS Mode of arrival: EMS Limitations: no limitations History of Present Illness ED Provider: Dr. Celeste Hemphill HPI narrative: Patient comes to the emergency room complaining high blood pressure. Patient states that earlier today she was sleeping and had a whooshing sound in her ears. Patient checked her blood pressure it was in the 190s and came to the hospital. Patient denies headache chest pain or shortness of breath. Patient states that 2 days ago when she was working at [employer] [facility] [employer] [facility] [employer], she had a bit of malaise, no significant pain. Patient's blood pressure was checked and it was in the 200s. Patient states that she was taking to the emergency room at [facility] where she was working, her blood pressure came down to the 140s systolic without any intervention. Patient was discharged with no medications and instructed to follow-up with PCP. At this time, patient is asymptomatic, blood pressure still in the 190s. Related Data Home Medications ?Medication ?Instructions ?Recorded ?Confirmed alendronate 70 mg tablet 1 tab PO TH 03/21/21 03/21/21 calcium 600 mg (as 1 tab PO DAILY 03/21/21 03/21/21 carbonate)-vitamin D3 5 mcg (200 unit) tablet levothyroxine 88 mcg tablet 1 tab PO DAILY@0630 03/21/21 03/21/21 Previous Rx's ?Medication ?Instructions ?Recorded amlodipine 2.5 mg tablet 2.5 mg PO DAILY #14 tabs 03/21/21 aspirin 81 mg tablet,delayed 81 mg PO DAILY #30 tabs 03/21/21 release blood pressure monitor #1 ea 03/21/21 cyclobenzaprine 5 mg tablet 5 mg PO TID PRN muscle spasm #10 09/06/23 tabs ketorolac 10 mg tablet 10 mg PO TID PRN pain #10 tabs 09/06/23 amlodipine 10 mg tablet 10 mg PO DAILY #30 tabs 11/16/24 Allergies Allergy/AdvReac Type Severity Reaction Status Date / Time No Known Allergies Allergy Verified 11/16/24 02:57 Review of Systems Review of Systems: Constitutional : No Weight loss, No Fever, No Chills, No Night Sweats, No Fatigue, No Malaise ENT/Mouth : No Hearing loss, No Ear Pain, No Nasal Congestion, No Sinus Pain, No Hoarseness, No sore throat, No Rhinorrhea, No Swallowing Difficulty Eyes: No Eye Pain, No Swelling, No Redness, No Foreign Body, No Discharge, No Vision Changes Cardiovascular : Complaining of high blood pressure, No Chest Pain, No SOB, No Dyspnea on Exertion, No Orthopnea, No Edema, No Palpitations Respiratory : No Cough, No Sputum, No Wheezing, No Smoke Exposure, No Dyspnea Gastrointestinal : No Nausea, No Vomiting, No Diarrhea, No Constipation, No abdominal Pain, No Hematochezia, No Melena Genitourinary : no irregular bleeding, No Dysuria, No Urinary Frequency, No Hematuria, No Urinary Incontinence, No Urgency, No Flank Pain, No Urinary Flow Changes, No Hesitancy Musculoskeletal : No joint pain, No Myalgias, No Joint Swelling Skin : No Skin Lesions, No rash Neuro : No Weakness, No Numbness, No Paresthesias, No Loss of Consciousness, No Dizziness, No Headache Psych : No Anxiety/Panic, No Depression, No SI/HI/AH/VH, No Social Issues, Heme/Lymph: No Bruising, No Bleeding,No Lymphadenopathy Endocrine : No Polyuria, No Polydipsia, No Temperature Intolerance PMFSH Past Medical History Medical History Dysarthria Hypertension Hyperparathyroidism Surgical History H/O: hysterectomy Social History Social History Smoked in Last 30 Days: No Use of substances other than those prescribed or required for medical reasons: No Advance Directives: No Advance Directives Information Provided: Yes service: No Current occupational status: employed Physical Exam ED Vital Signs: Vital Signs - 24 hr 11/16/24 02:54 11/16/24 03:01 11/16/24 03:23 Temperature 97.6 F 97.6 F Pulse Rate 72 72 Respiratory Rate 16 16 Blood Pressure 191/86 H 191/86 H 191/86 H Pulse Oximetry 99 99 Oxygen Delivery Method Room Air Room Air 11/16/24 04:34 11/16/24 05:28 Temperature Pulse Rate 77 65 Respiratory Rate 16 15 Blood Pressure 138/69 155/79 H Pulse Oximetry 99 99 Oxygen Delivery Method Room Air Room Air BMI result Body Mass Index 25.7 Const Other: Appearance: Alert. Oriented X3. No acute distress. Eyes: Pupils equal, round and reactive to light. ENT: Pharynx normal. Neck: Normal inspection. Neck supple. No lymph nodes noted. No crepitus CVS: Normal heart rate and rhythm. Pulses normal. Normal S1 and S2 Respiratory: No respiratory distress. Breath sounds normal. No Wheezing. No rales Abdomen: Soft and nontender. No rigidity. No distention. Skin: Skin warm and dry. Normal skin color. Normal skin turgor. Extremities: No lower extremity edema. No Lacerations. No Rash Neuro: Oriented X 3. No motor deficit. No sensory deficit. Moving all extremities. No slurred speech. CN 2 through 12 grossly intact Psych: calm, cooperative, normal affect Course Course Course Narrative: All of patient's labs and imaging pending. Patient's blood pressure 191/86, heart rate 72. Patient will be given 1 dose of amlodipine. Patient states that she used take amlodipine, then her blood pressure was good for some time, and it was discontinued. Medications Administered Discontinued Medications Generic Name Dose Route Start Last Admin Trade Name Freq PRN Reason Stop Dose Admin Amlodipine Besylate 10 mg 11/16/24 03:04 11/16/24 03:23 Amlodipine Besylate 10 Mg Tablet PO 11/16/24 03:05 10 mg ONCE ONE Administration Protocol Medical Decision Making Medical Decision Making [facility] Narrative: My interpretation of EKG: Normal sinus rhythm, heart rate 59, no ST segment depression or elevation, no T-wave inversion, QTC 411 Interpretation of labs: No significant abnormality in patient's hematology or chemistry, negative troponin, BNP normal Blood pressure 155/79, patient asymptomatic Initial blood pressure 191/86 Patient agrees to be started on blood pressure medications This is the 2nd time in 3 days that patient has a blood pressure close to 200 systolic Differential Diagnosis Differential Diagnoses: The differential diagnosis associated with the presentation includes (Hypertension, hypertensive urgency) Admission/Observation Consideration of admission/observation: Escalation of care including admission/observation considered (Given patient's initial elevated blood pressure, observation was considered) Lab Data 11/16/24 03:08 11/16/24 03:08 Labs: Lab Results 11/16/24 Range/Units 03:08 WBC 4.2 L (4.8-10.8) X10*3/uL RBC 3.94 L (4.20-5.50) X10*6/uL Hgb 12.2 (12.0-16.0) g/dl Hct 34.7 L (37.0-47.0) % MCV 88.1 (80.0-98.0) fL MCH 31.0 (27.0-33.0) pg MCHC 35.2 H (31.0-35.0) g/dl RDW 11.9 (11.0-16.0) % Plt Count 180 (160-400) X10*3/uL MPV 9.9 (9.4-12.3) fL Immature Gran % (Auto) 0.0 (0.0-0.4) % Neut % (Auto) 46.9 (45-73) % Lymph % (Auto) 42.2 H (20-40) % [place] % (Auto) 8.5 (2-11) % Eos % (Auto) 1.7 (0-4) % Baso % (Auto) 0.7 (0-2) % Lymph # (Auto) 1.8 (1.2-4.9) X10*3/uL [place] # (Auto) 0.4 (0.1-1.2) X10*3/uL Eos # (Auto) 0.1 (0.0-0.4) X10*3/uL Baso # (Auto) 0.0 (0.0-0.2) X10*3/uL Abs Immat Gran (auto) 0.00 (0.00-0.03) X10*3/uL Absolute Neuts (auto) 2.0 (2.0-8.3) x10*3/uL Absolute Nucleated RBC 0.000 (0.0-0.012) X10*3/uL Nucleated RBC % (auto) 0.0 (0.0-0.2) /100WBC Sodium 142 (135-145) mmol/L Potassium 3.8 (3.3-5.1) mmol/L Chloride 109 H (96-108) mmol/L Carbon Dioxide 25 (22-29) mmol/L Anion Gap 12 (12-20) BUN 17 H (9-16) mg/dL Creatinine 0.68 (0.5-1.4) mg/dL Estim Creat Clear Calc 65.1 Estimated GFR > 60 Random Glucose 101 (60-115) mg/dL Calcium 9.1 (8.4-10.2) mg/dL Total Bilirubin 0.3 (0.0-1.0) mg/dL Direct Bilirubin 0.1 (0.0-0.5) mg/dL AST 23 (5-31) U/L ALT 18 (0-31) U/L Alkaline Phosphatase 68 (39-117) U/L Troponin I High Sens < 2.7 (<3.5-17.0) ng/L B-Natriuretic Peptide 53 (<100) pg/mL Total Protein 6.5 (6.5-8.0) g/dL Albumin 4.3 (3.5-5.0) g/dL Critical Care Time Critical Care Time Critical Care Time: Yes Total Critical Care Time: 45 Attestation: I have personally provided critical care time. Time includes review of lab data, radiology results, discussion with consultants, and monitoring for potential decompensation. Intervention performed as documented. Discharge Plan Discharge Clinical Impression: Hypertension Patient Disposition: Home, Self-Care Instructions: Chronic Hypertension (ED) Additional Instructions: Please follow-up with your primary care physician tomorrow. If you have any worsening or new symptoms, please return to the emergency room or call 911 Prescriptions: New amlodipine 10 mg tablet 10 mg PO DAILY Qty: 30 0RF No Action alendronate 70 mg tablet 1 tab PO TH levothyroxine 88 mcg tablet 1 tab PO DAILY@0630 calcium carbonate-vitamin D3 600 mg(1,500mg) -200 unit Tablet 1 tab PO DAILY aspirin 81 mg Tablet,Delayed Release (Dr/Ec) 81 mg PO DAILY Qty: 30 0RF amlodipine 2.5 mg tablet 2.5 mg PO DAILY Qty: 14 0RF (DME) blood pressure monitor Kit See Rx Instructions .Route Qty: 1 0RF Rx Instructions: As directed ketorolac 10 mg tablet 10 mg PO TID PRN (Reason: pain) Qty: 10 0RF cyclobenzaprine 5 mg tablet 5 mg PO TID PRN (Reason: muscle spasm) Qty: 10 0RF Rx Instructions: Do not drive or use machinery after taking this medication Print Language: Romanian
[2024-11-16 03:13] LABS: MANUAL DIFF FLAG NO
[2024-11-16 03:14] LABS: Basophils Percent Auto 0.7 % (0-2); Eosinophils Absolute Auto 0.1 X10*3/uL (0.0-0.4); Eosinophils Percent Auto 1.7 % (0-4); Hematocrit 34.7 % (37.0-47.0); Hemoglobin 12.2 g/dl (12.0-16.0); Lymphocytes Absolute Auto 1.8 X10*3/uL (1.2-4.9); Lymphocytes Percent Auto 42.2 % (20-40); Mean Corpuscular HGB Conc 35.2 g/dl (31.0-35.0); Mean Corpuscular Volume 88.1 fL (80.0-98.0); Mean Platelet Volume 9.9 fL (9.4-12.3); Monocytes Absolute Auto 0.4 X10*3/uL (0.1-1.2); Monocytes Percent Auto 8.5 % (2-11); Neutrophils Percent Auto 46.9 % (45-73); Platelet Count 180 X10*3/uL (160-400); Red Blood Count 3.94 X10*6/uL (4.20-5.50); Red Cell Distribution Width 11.9 % (11.0-16.0); White Blood Count 4.2 X10*3/uL (4.8-10.8)
--- OUTSIDE RECORDS SUMMARY | 2024-11-16 03:17 | XMS_ITS | Clinical Summary ---
Author Organization [address] Address [address] [place] [address] Phone Care Team Providers Care Biometrics Specialist Name Role Phone Newton Alicia MD Primary Care Provider [phone] Medications nystatin (MYCOSTATIN) 100,000 unit/mL suspension Take 4 mL by mouth 3 (three) times a day. Swish in mouth and swallow. 280 mL 11/04/2024 Active Social History Tobacco Use Types Packs/Day Years Used Date Smoking Tobacco: Never Assessed Comments Unknown Sex and Gender Information Value Date Recorded Sex Assigned at Not on file Legal Sex Female 8:58 PM EST Gender Identity Not on file Sexual Orientation Not on file Plan of Treatment Health Maintenance Due Date Last Done Comments Pneumococcal Vaccine: 50+ Years (1 of 1 - PCV) 1999 Zoster Vaccines (1 of 2) 1999 Cholesterol Screening (Lipid Panel) 08/20/2019 Colorectal Cancer Screening: Colonoscopy 08/20/2019 Depression Screening 08/20/2019 Falls Risk Assessment 08/20/2019 Hepatitis C Screening 08/20/2019 Social Influencers of Health Screening 08/20/2019 RSV Immunization Adult Patients (1 - 1-dose 75+ series) 02/29/2024 COVID-19 Vaccine ( season) 2024 11/15/2020, 10/25/2020 Influenza Vaccine (Season Ended) 2025 Hypertension/CHF/CAD Annual BMP Blood Test 11/13/2025 11/13/2024 DTaP,Tdap,and Td Vaccines (2 - Td or Tdap) 08/15/2030 08/15/2020 Osteoporosis Screening (Bone Density Screening) 11/26/2032 11/26/2022, 11/25/2020, 09/13/2017 Breast Cancer Screening Discontinued 12/31/19 24, 11/26/2022, 11/25/2020, Additional history exists HIB Vaccines Aged Out No longer eligi ble based on patient's age to complete this topic HPV Vaccines Aged Out No longer eligi ble based on patient's age to complete this topic Hepatitis A Vaccines Aged Out No long er eligible based on patient's age to complete this topic Hepatitis B Vaccines Aged Out No long er eligible based on patient's age to complete this topic IPV Vaccines Aged Out No longer eligi ble based on patient's age to complete this topic MMR Vaccines Aged Out No longer eligi ble based on patient's age to complete this topic Meningococcal ACWY Vaccine Aged Out N o longer eligible based on patient's age to complete this topic Meningococcal B Vaccine Aged Out No l onger eligible based on patient's age to complete this topic RSV Immunization Patients Under 20 months Aged Out No longer eligible based on patient's age to complete this topic Varicella Vaccines Aged Out No longer eligible based on patient's age to complete this topic Procedures Procedure Name Priority Date/Time Associated Diagnosis Comments CBC WITH AUTO DIFFERENTIAL Routine 11/13/2024 9:48 AM EDT Lightheadedness HTN (hypertension), benign Osteoporosis, unspecified osteoporosis type, unspecified pathological fracture presence COMPREHENSIVE METABOLIC PANEL Routine 11/13/2024 9:48 AM EDT Lightheadedness HTN (hypertension), benign Osteoporosis, unspecified osteoporosis type, unspecified pathological fracture presence CBC AND DIFFERENTIAL Routine 11/13/2024 9:48 AM EDT Lightheadedness HTN (hypertension), benign Osteoporosis, unspecified osteoporosis type, unspecified pathological fracture presence D-DIMER Routine 11/13/2024 9:48 AM EDT Lightheadedness HTN (hypertension), benign Osteoporosis, unspecified osteoporosis type, unspecified pathological fracture presence THYROID STIMULATING HORMONE WITH REFLEX TO FREE T4 AND FREE T3 Routine 11/13/2024 9:48 AM EDT Lightheadedness HTN (hypertension), benign Osteoporosis, unspecified osteoporosis type, unspecified pathological fracture presence B-TYPE NATRIURETIC PEPTIDE Routine 11/13/2024 9:48 AM EDT Lightheadedness HTN (hypertension), benign Osteoporosis, unspecified osteoporosis type, unspecified pathological fracture presence MAGNESIUM Routine 11/13/2024 9:48 AM EDT Lightheadedness HTN (hypertension), benign Osteoporosis, unspecified osteoporosis type, unspecified pathological fracture presence C-REACTIVE PROTEIN Routine 11/13/2024 9 :48 AM EDT Lightheadedness HTN (hypertension), benign Osteoporosis, unspecified osteoporosis type, unspecified pathological fracture presence [facility] SCREENING DIGITAL Routine 12/31/2023 1:02 PM EDT Encounter for screening mammogram for malignant neoplasm of breast [facility] DEXA AXIAL SKELETON Routine 11/26/2022 8:13 AM EDT Age-related osteoporosis without current pathological fracture from Last 3 Months or Most Recently Relevant to Health Maintenance Results * Thyroid stimulating hormone with reflex to free t4 and free t3 (11/13/2024 9:48 AM EDT) Pathologist [facility] TSH 0.54 0.40 - 4.00 mcIU/mL LAB CHEMISTRY METHOD 11/13/2024 2:02 PM EDT [facility] Blood Venous blood specimen / Unknown Venipuncture / Unknown 11/13/2024 9:48 AM EDT 11/13/2024 10:27 AM EDT us Martha Martinez MD LAB BLOOD ORDERABLES Final Res ult [facility] [address] [place] [address], * (ABNORMAL) CBC auto differential (11/13/2024 9:48 AM EDT) WBC 4.2(L) 4.8 - 10.8 K/mcL LAB HEMETOLOGY METHOD 11/13/2024 10:40 AM EDT [facility] RBC 4.10 3.80 - 4.80 M/mcL LAB HEMETOLOGY METHOD 11/13/2024 10:40 AM [facility] Hemoglobin 12.8 11.5 - 16.0 g/dL LAB HEMETOLOGY METHOD 11/13/2024 10:40 AM [facility] Hematocrit 37.2 35.0 - 47.0 % LAB HEMETOLOGY METHOD 11/13/2024 10:40 AM [facility] MCV 90.1 79.0 - 98.0 FL LAB HEMETOLOGY METHOD 11/13/2024 10:40 AM [facility] MCH 31.0 27.0 - 32.0 pcg LAB HEMETOLOGY METHOD 11/13/2024 10:40 AM [facility] MCHC 34.4 32.0 - 37.0 g/dL LAB HEMETOLOGY METHOD 11/13/2024 10:40 AM [facility] RDW 11.9 11.0 - 15.0 % LAB HEMETOLOGY METHOD 11/13/2024 10:40 AM [facility] Platelets 195 130 - 400 K/mcL LAB HEMETOLOGY METHOD 11/13/2024 10:40 AM [facility] MPV 10.4 7.0 - 11.0 FL LAB HEMETOLOGY METHOD 11/13/2024 10:40 AM [facility] NRBC 0.0 <1.0 % LAB HEMETOLOGY METHOD 11/13/2024 10:40 AM [facility] NRBC Absolute 0.00 <0.10 K/mcL LAB HEMETOLOGY METHOD 11/13/2024 10:40 AM [facility] Neutrophils Relative 66.8 % LAB HEMETOLOGY METHOD 11/13/2024 10:40 AM [facility] Lymphocytes Relative 24.7 % LAB HEMETOLOGY METHOD 11/13/2024 10:40 AM [facility] Monocytes Relative 6.9 % LAB HEMETOLOGY METHOD 11/13/2024 10:40 AM [facility] Eosinophils Relative 0.7 % LAB HEMETOLOGY METHOD 11/13/2024 10:40 AM [facility] Basophils Relative 0.7 % LAB HEMETOLOGY METHOD 11/13/2024 10:40 AM [facility] Immature Granulocytes Relative 0.2 % LAB HEMETOLOGY METHOD 11/13/2024 10:40 AM [facility] Neutrophils Absolute 2.81 1.50 - 7.00 K/mcL LAB HEMETOLOGY METHOD 11/13/2024 10:40 AM [facility] Lymphocytes Absolute 1.04 1.00 - 5.00 K/mcL LAB HEMETOLOGY METHOD 11/13/2024 10:40 AM [facility] Monocytes Absolute 0.29 0.20 - 1.00 K/mcL LAB HEMETOLOGY METHOD 11/13/2024 10:40 AM [facility] Eosinophils Absolute 0.03 0.00 - 0.50 K/mcL LAB HEMETOLOGY METHOD 11/13/2024 10:40 AM [facility] Basophils Absolute 0.03 0.00 - 0.20 K/mcL LAB HEMETOLOGY METHOD 11/13/2024 10:40 AM [facility] Immature Granulocytes Absolute 0.01 0.00 - 0.03 K/mcL LAB HEMETOLOGY METHOD 11/13/2024 10:40 AM [facility] Blood Venous blood specimen / Unknown Venipuncture / Unknown 11/13/2024 9:48 AM EDT 11/13/2024 10:22 AM EDT us Martha Martinez MD LAB BLOOD ORDERABLES Final Res ult Performing Organization Address [facility] Co de Phone Number [facility] [address] [place] [address], * D-Dimer (11/13/2024 9:48 AM EDT) D-Dimer, Quant (D-DU) <150 <=230 ng/mL DDU LAB COAGULATION METHOD 11/13/2024 10:45 AM EDT [facility] Blood Venous blood specimen / Unknown Venipuncture / Unknown 11/13/2024 9:48 AM EDT 11/13/2024 10:23 AM EDT Narrative [facility] - 11/13/2024 10:45 AM EDT D-Dimer <230 ng/mL (D-Dimer units) is the threshold for exclusion of DVT/PE. D-Dimer may be elevated in: Critically ill, severely infected, trauma patients, DIC, acute CVA, acute IL, unstable angina, AF, old age, , and smoking. D-Dimer may be decreased with: Initiation of heparin therapy and oral anticoagulants. Martha Martinez MD LAB BLOOD ORDERABLES Final Res ult Performing Organization Address [facility] de Phone Number [facility] [address] [place] [address], [place] [phone] * C-reactive protein (11/13/2024 9:48 AM EDT) Pathologist [facility] C-Reactive Protein <0.29 <=0.50 mg/dL LAB CHEMISTRY METHOD 11/13/2024 1:01 PM EDT [facility] Blood Venous blood specimen / Unknown Venipuncture / Unknown 11/13/2024 9:48 AM EDT 11/13/2024 10:27 AM EDT Martha Martinez MD LAB BLOOD ORDERABLES Final Res ult Performing Organization Address [facility] [place]/[facility]/ZIP Co de Phone Number [facility] [address] [place] [address], * B-type natriuretic peptide (11/13/2024 9:48 AM EDT) Pathologist [facility] BNP 52 <=100 pcg/mL LAB CHEMISTRY METHOD 11/13/2024 11:10 AM EDT [facility] Blood Venous blood specimen / Unknown Venipuncture / Unknown 11/13/2024 9:48 AM EDT 11/13/2024 10:22 AM EDT Martha Martinez MD LAB BLOOD ORDERABLES Final Res ult Performing Organization Address [facility] [place]/[facility] Co de Phone Number [facility] [address] [place] [address], * Magnesium (11/13/2024 9:48 AM EDT) [facility] Magnesium 2.1 1.9 - 2.6 mg/dL LAB CHEMISTRY METHOD 11/13/2024 1:01 PM EDT [facility] Blood Venous blood specimen / Unknown Venipuncture / Unknown 11/13/2024 9:48 AM EDT 11/13/2024 10:27 AM EDT Martha Martinez MD LAB BLOOD ORDERABLES Final Res ult Performing Organization Address [facility] [place]/[facility]/ZIP Co de Phone Number [facility] [address] [place] [address], * Comprehensive metabolic panel (11/13/2024 9:48 AM EDT) Pathologist [facility] Sodium 139 133 - 145 mmol/L LAB CHEMISTRY METHOD 11/13/2024 1:01 PM EDT [facility] Potassium 4.3 3.5 - 5.5 mmol/L LAB CHEMISTRY METHOD 11/13/2024 1:01 PM [facility] Chloride 107 96 - 110 mmol/L LAB CHEMISTRY METHOD 11/13/2024 1:01 PM [facility] CO2 28 21 - 32 mmol/L LAB CHEMISTRY METHOD 11/13/2024 1:01 PM [facility] Anion Gap 4 3 - 11 LAB CHEMISTRY METHOD 11/13/2024 1:01 PM [facility] Glucose 95 70 - 100 mg/dL LAB CHEMISTRY METHOD 11/13/2024 1:01 PM [facility] BUN 13 5 - 25 mg/dL LAB CHEMISTRY METHOD 11/13/2024 1:01 PM [facility] Creatinine 0.56 0.50 - 1.10 mg/dL LAB CHEMISTRY METHOD 11/13/2024 1:01 PM [facility] eGFR 95 >=60 mL/min/1. 73m2 LAB CHEMISTRY METHOD 11/13/2024 1:01 PM [facility] Comment:Calculation based on the??Chronic Kidney Disease Epidemiology Collaboration (CKD-EPI) equation refit??without adjustment for race. BUN/Creatinine Ratio 23.2 LAB CHEMISTRY METHOD 11/13/2024 1:01 [facility] Calcium 9.2 8.5 - 10.5 mg/dL LAB CHEMISTRY METHOD 11/13/2024 1:01 [facility] AST (SGOT) 19 10 - 42 unit/L LAB CHEMISTRY METHOD 11/13/2024 1:01 [facility] ALT (SGPT) 21 10 - 60 unit/L LAB CHEMISTRY METHOD 11/13/2024 1:01 PM [facility] Alkaline Phosphatase 77 42 - 121 unit/L LAB CHEMISTRY METHOD 11/13/2024 1:01 PM [facility] Total Protein 7.0 6.0 - 8.0 g/dL LAB CHEMISTRY METHOD 11/13/2024 1:01 PM EDT [facility] Albumin 4.2 3.2 - 5.0 g/dL LAB CHEMISTRY METHOD 11/13/2024 1:01 PM EDT [facility] Total Bilirubin 0.7 0.0 - 1.4 mg/dL LAB CHEMISTRY METHOD 11/13/2024 1:01 PM EDT [facility] Blood Venous blood specimen / Unknown Venipuncture / Unknown 11/13/2024 9:48 AM EDT 11/13/2024 10:27 AM EDT us Martha Martinez MD LAB BLOOD ORDERABLES Final Res ult [facility] [address] [place] [address], * PARMJIT SCREENING DIGITAL (12/31/2023 1:02 PM EDT) Anatomical Region Laterality Modality Mammography 12/30/2023 3:29 PM EDT Narrative 12/31/2023 1:02 PM EDT [facility] Diagnostic Imaging Department [address] [place] [address] Patient: ??ESPINOZA HATCH ?/Age/Sex: 1950 - 73 - F Unit#: ??[id number] ? Location/Status: ??SPDIMAM/REG CLI ? Mnemonic/Ordering Site: ??DIGSC/SPMAM Ordering Physician: ??NEWTON ALICIA MD [facility] Screening Digital - 12/30/23 - 1631 Report Status:Signed EXAM: [facility] Screening Digital EXAM DATE AND TIME: 12/30/2023 4:32 PM HISTORY: ??Annual screening COMPARISON: ??11/26/2022 and 11/25/2020 TECHNIQUE: Bilateral digital breast tomosynthesis was performed in the CC and MLO projections. Computer aided detection with [employer] 3D 3.1 was employed. TISSUE DENSITY: b. There are scattered areas of fibroglandular density. FINDINGS: No suspicious masses, grouped microcalcifications, or areas of architectural distortion are seen. The skin and vascularity are unremarkable. IMPRESSION: Stable mammographic appearance of the breasts. ??No evidence of malignancy is seen. A negative mammogram in the presence of a clinically suspicious palpable abnormality does not preclude the possibility of malignancy or alter the indications for biopsy. BI-RADS: ??Category 1: Negative RECOMMENDATION(S): 1: Routine screening mammogram BILATERAL in 1 year. Dictating Physician: ??JAKE KIM MD Electronically Signed by: ??JAKE KIM MD Dic Date/Time: ??12/31/23 1301 Sign date/Time: ??12/31/23 1302 Procedure Note Jake Kim MD - 04/29/2024 [facility] Diagnostic Imaging Department [address] [place], [place] [id number] Patient: ESPINOZA HATCH /Age/Sex: 1950 - 73 - F Unit#: [id number] Location/Status: SPDIMAM/REG CLI Mnemonic/Ordering Site: DIGSC/SPMAM Ordering Physician: NEWTON ALICIA MD [facility] Screening Digital - 12/30/23 - 1631 Report Status:Signed EXAM: [facility] Screening Digital EXAM DATE AND TIME: 12/30/2023 4:32 PM HISTORY: Annual screening COMPARISON: 11/26/2022 and 11/25/2020 TECHNIQUE: Bilateral digital breast tomosynthesis was performed in the CCand MLO projections. Computer aided detection with [employer] 3D 3.1was employed. TISSUE DENSITY: b. There are scattered areas of fibroglandular density. FINDINGS: No suspicious masses, grouped microcalcifications, or areas ofarchitectural distortion are seen. The skin and vascularity are unremarkable. IMPRESSION: Stable mammographic appearance of the breasts. No evidence of malignancyis seen. A negative mammogram in the presence of a clinically suspicious palpable abnormality does not preclude the possibility of malignancy or alter the indications for biopsy. BI-RADS: Category 1: Negative RECOMMENDATION(S): 1: Routine screening mammogram BILATERAL in 1 year. Dictating Physician: JAKE KIM MD Electronically Signed by: JAKE KIM MD Dic Date/Time: 12/31/23 1301 Sign date/Time: 12/31/23 1302 Newton Alicia MD IMG BI PROCEDURES Final Result * [facility] DEXA AXIAL SKELETON (11/26/2022 8:13 AM EDT) Anatomical Region Laterality Modality Mammography 11/26/2022 7:13 AM EDT Narrative 11/26/2022 8:13 AM EDT [facility] Diagnostic Imaging Department [address] [place] [id number] Patient: ??ESPINOZA HATCH ?/Age/Sex: 1950 - 72 - F Unit#: ??[id number] ? Location/Status: ??SPDIMAM/REG CLI ? Mnemonic/Ordering Site: ??MAMDEXAAX/SPMAM Ordering Physician: ??NEWTON ALICIA MD [facility] Dexa Axial Skeleton - 11/26/22802 HISTORY: ??The patient is a 72-year-old postmenopausal female with clinical concern for metabolic bone disease. FINDINGS: ??Dual energy x-ray absorptiometry of the lumbar spine and femurs is performed. The mean bone mineral density at L1-2 is 0.827 gm/cm2 which is 71% of that of young normals and 88% of that of age matched controls. This yields a T- score of -2.8 and a Z-score of -1.0 which is diagnostic of osteoporosis. The mean bone mineral density of the femurs bilaterally is 0.748 gm/cm2 which is 74% of that of young normals and 95% of that of age matched controls. ??This yields a T-score of -2.1 and a Z-score of -0.3 which is diagnostic of osteopenia. ??However, the T-score of the right femoral neck is -2.6 and that of the left femoral neck is -2.7 which is diagnostic of osteoporosis. IMPRESSION: 1. Osteoporosis. ??There has been an increase of 7.1% in bone mineral density in the lumbar spine since the prior examination of 11/25/2020. ??There has been an increase of 0.8% in bone mineral density in the right femur and an increase of 3.1% in bone mineral density in the left femur. 2. FRAX analysis yields a 10-year probability of major osteoporotic fracture of 25.1% and a 10-year probability of hip fracture of 7.6%. Code 00877 Dictating Physician: ??VIKKI NGO MD Electronically Signed by: ??VIKKI NGO MD Dic Date/Time: ??11/26/22810 Sign date/Time: ??11/26/22812 Procedure Note Vikki Ngo MD - 08/16/2023 [facility] Diagnostic Imaging Department [address] [place] [address] Patient: HATCHESPINOZA./Age/Sex: 1950 - 72 - F Unit#: [id number] Location/Status: [facility] CLI [facility] Ordering Physician: NEWTON ALICIA MD [facility] Dexa Axial Skeleton - 11/26/22802 HISTORY: The patient is a 72-year-old postmenopausal female withclinical concern for metabolic bone disease. FINDINGS: Dual energy x-ray absorptiometry of the lumbar spine and femursis performed. The mean bone mineral density at L1-2 is 0.827 gm/cm2 which is71% of that of young normals and 88% of that of age matched controls. This yieldsa T- score of -2.8 and a Z-score of -1.0 which is diagnostic of osteoporosis. The mean bone mineral density of the femurs bilaterally is 0.748 gm/yw9gjpby is 74% of that of young normals and 95% of that of age matched controls.This yields a T-score of -2.1 and a Z-score of -0.3 which is diagnostic of osteopenia. However, the T-score of the right femoral neck is -2.6 andthat of the left femoral neck is -2.7 which is diagnostic of osteoporosis. IMPRESSION: 1. Osteoporosis. There has been an increase of 7.1% in bone mineraldensity in the lumbar spine since the prior examination of 11/25/2020. There has beenan increase of 0.8% in bone mineral density in the right femur and anincrease of 3.1% in bone mineral density in the left femur. 2. FRAX analysis yields a 10-year probability of major osteoporoticfracture of 25.1% and a 10-year probability of hip fracture of 7.6%. Code 99901 Dictating Physician: VIKKI NGO MD Electronically Signed by: VIKKI NGO MD Dic Date/Time: 11/26/22810 Sign date/Time: 11/26/22812 Newton Alicia MD IMG BI PROCEDURES Final Result from Last 3 Months or Most Recently Relevant to Health Maintenance Insurance MEDICARE [employer] Care Teams Biometrics Specialist Relationship Specialty Start Date End Date Newton Alicia MD [address] [place], [place] PCP - General Internal Medicine 02/09/14
[2024-11-16 03:23] VITALS: BP 191/86
[2024-11-16] MEDS: amLODIPine Besylate 10 MG TABLET PO (03:23)
[2024-11-16 03:34] LABS: Troponin-I High Sensitivity < 2.7 ng/L (<3.5-17.0)
[2024-11-16 03:35] LABS: Alanine Aminotransferase 18 U/L (0-31); Albumin Level 4.3 g/dL (3.5-5.0); Anion Gap 12 (12-20); Aspartate Amino Transferase 23 U/L (5-31); Bilirubin Direct 0.1 mg/dL (0.0-0.5); Bilirubin Total 0.3 mg/dL (0.0-1.0); Blood Urea Nitrogen 17 mg/dL (9-16); Calcium 9.1 mg/dL (8.4-10.2); Carbon Dioxide 25 mmol/L (22-29); Chloride 109 mmol/L (96-108); Creatinine Clr Calc Pharmacy 65.1; Estimated Glomerular Filt Rate > 60; Glucose Random 101 mg/dL (60-115); Potassium 3.8 mmol/L (3.3-5.1); Sodium 142 mmol/L (135-145); Total Protein 6.5 g/dL (6.5-8.0)
[2024-11-16 03:36] LABS: B Type Natriuretic Peptide 53 pg/mL (<100)
[2024-11-16 03:45] LABS: Alkaline Phosphatase 68 U/L (39-117)
[2024-11-16 04:34] VITALS: BP 138/69; PULSE 77; RESP 16; O2SAT 99
[2024-11-16 05:28] VITALS: BP 155/79; PULSE 65; RESP 15; O2SAT 99
[2024-11-16 06:34] VITALS: BP 155/79; PULSE 65; RESP 15; TEMP 36.6; O2SAT 99
== END 2024-11-16 07:17 | disposition home or self-care (01) ==
PROVIDERS: Emergency Provider Emergency Medicine; PCP Internal Medicine
DX: I10 Essential (primary) hypertension (principal); R53.81 Other malaise
CPT/HCPCS: 36415; 80048; 80076; 83880; 84484; 85025; 93005; 99283; 99284

== ENCOUNTER → 2024-11-16 03:00 | Outpatient (BNV) | payer OTHER, SELFPAY | PROVIDERS: Emergency Provider Emergency Medicine; PCP Internal Medicine; Visit Provider Internal Medicine | DX: R00.1 Bradycardia, unspecified (principal) | CPT/HCPCS: 93010 ==

== ENCOUNTER 2024-12-03 23:37 | Emergency (ER) | payer OTHER, SELFPAY ==
--- NOTE | 2024-12-03 | ECG_ITS ---
Test Reason : TACHYCARDIA Blood Pressure : */* mmHG Vent. Rate : 80 BPM Atrial Rate : 80 BPM P-R Int : 156 ms QRS Dur : 78 ms QT Int : 374 ms P-R-T Axes : 119 31 44 degrees QTcB Int : 431 ms Normal sinus rhythm Normal ECG When compared with ECG of 16-Nov-2024 03:02, No significant change was found Referred By: Generic ED Physician Electronically Signed By: Lavell Garcia
[2024-12-03 23:45] VITALS: BP 168/86; PULSE 78; RESP 18; TEMP 36.6; O2SAT 100; BMI 23.3
[2024-12-04 00:06] LABS: MANUAL DIFF FLAG NO
[2024-12-04 00:11] LABS: Basophils Percent Auto 0.4 % (0-2); Eosinophils Absolute Auto 0.1 X10*3/uL (0.0-0.4); Eosinophils Percent Auto 1.2 % (0-4); Hematocrit 36.1 % (37.0-47.0); Hemoglobin 12.9 g/dl (12.0-16.0); Imm Gran Abs Auto 0.01 X10*3/uL (0.00-0.03); Imm Gran Pct Auto 0.2 % (0.0-0.4); Lymphocytes Absolute Auto 2.1 X10*3/uL (1.2-4.9); Lymphocytes Percent Auto 42.7 % (20-40); Mean Corpuscular HGB Conc 35.7 g/dl (31.0-35.0); Mean Corpuscular Hemoglobin 31.3 pg (27.0-33.0); Mean Corpuscular Volume 87.6 fL (80.0-98.0); Mean Platelet Volume 10.1 fL (9.4-12.3); Monocytes Absolute Auto 0.4 X10*3/uL (0.1-1.2); Monocytes Percent Auto 8.2 % (2-11); Neutrophils Absolute Auto 2.4 x10*3/uL (2.0-8.3); Neutrophils Percent Auto 47.3 % (45-73); Platelet Count 188 X10*3/uL (160-400); Red Blood Count 4.12 X10*6/uL (4.20-5.50); Red Cell Distribution Width 11.8 % (11.0-16.0)
[2024-12-04 00:19] LABS: Alanine Aminotransferase 17 U/L (0-31); Albumin Level 4.6 g/dL (3.5-5.0); Alkaline Phosphatase 77 U/L (39-117); Anion Gap 13 (12-20); Aspartate Amino Transferase 23 U/L (5-31); Bilirubin Total 0.3 mg/dL (0.0-1.0); Blood Urea Nitrogen 19 mg/dL (9-16); Calcium 9.5 mg/dL (8.4-10.2); Carbon Dioxide 24 mmol/L (22-29); Chloride 107 mmol/L (96-108); Creatinine Clr Calc Pharmacy 71.7; Estimated Glomerular Filt Rate > 60; Glucose Random 107 mg/dL (60-115); Potassium 4.3 mmol/L (3.3-5.1); Sodium 140 mmol/L (135-145); Total Protein 6.8 g/dL (6.5-8.0)
[2024-12-04 00:29] LABS: Troponin-I High Sensitivity < 2.7 ng/L (<3.5-17.0)
--- NOTE | 2024-12-04 00:37 | ED_ITS ---
HPI - Arrhythmia/Palpitations General Chief Complaint: Arrhythmia/Palpitations Stated Complaint: Tachy Time Seen by Provider: 12/04/24 00:23 Source: patient Mode of arrival: ambulatory Limitations: no limitations History of Present Illness ED Provider: DR. Ford HPI narrative: A 74-year-old female came in today for evaluation of palpitation and high blood pressure. Patient was diagnosed in the ED 2 weeks ago with new onset essential hypertension and patient was placed on amlodipine 10 mg daily patient had a follow-up with her PCP found that her blood pressure was low change her medication to 5 mg amlodipine daily and added losartan 50 mg tablet daily. Patient was sleeping tonight when she heard her heart beats in her ears was going fast but regular, no CP, no SOB, no fever, no chills. Related Data Home Medications ?Medication ?Instructions ?Recorded ?Confirmed alendronate 70 mg tablet 1 tab PO TH 03/21/21 03/21/21 calcium 600 mg (as 1 tab PO DAILY 03/21/21 03/21/21 carbonate)-vitamin D3 5 mcg (200 unit) tablet levothyroxine 88 mcg tablet 1 tab PO DAILY@0630 03/21/21 03/21/21 Previous Rx's ?Medication ?Instructions ?Recorded amlodipine 2.5 mg tablet 2.5 mg PO DAILY #14 tabs 03/21/21 aspirin 81 mg tablet,delayed 81 mg PO DAILY #30 tabs 03/21/21 release blood pressure monitor #1 ea 03/21/21 cyclobenzaprine 5 mg tablet 5 mg PO TID PRN muscle spasm #10 09/06/23 tabs ketorolac 10 mg tablet 10 mg PO TID PRN pain #10 tabs 09/06/23 amlodipine 10 mg tablet 10 mg PO DAILY #30 tabs 11/16/24 Allergies Allergy/AdvReac Type Severity Reaction Status Date / Time No Known Allergies Allergy Verified 12/03/24 23:50 Review of Systems 2 Review of Systems: All other systems are reviewed and are negative Constitutional: Reports as per HPI and Reports no additional constitutional complaints Eyes: Reports as per HPI and Reports no additional eye complaints Reports system reviewed and no additional complaints, except as documented Cardiovascular: Reports as per HPI and Reports no additional cardiovascular complaints Respiratory: Reports as per HPI and Reports no additional respiratory complaints Gastrointestinal: Reports as per HPI and Reports no additional gastrointestinal complaints Genitourinary: Reports no additional female genitourinary complaints Musculoskeletal: Reports no additional musculoskeletal complaints Skin/Breast: Reports system reviewed and no additional complaints, except as docu Psychiatric: Reports no additional psychiatric complaints Endocrine: Reports no additional endocrine complaints Hematologic/Lymphatic: Reports no additional hematologic/lymphatic complaints Allergic/Immunologic: Reports no additional allergic/immunologic complaints Reports system reviewed and no additional complaints, except as documented and Reports Abnormal speech present [facility] Past Medical History Medical History Dysarthria Hypertension Hyperparathyroidism Surgical History H/O: hysterectomy Social History Social History Advance Directives: No Advance Directives Information Provided: Yes Do you have a plan to hurt others: No Plan service: No Current occupational status: employed Physical Exam 2 Vital Signs: Vital Signs: Last Vital Signs Temp 97.9 F 12/03/24 23:45 Pulse 78 12/03/24 23:45 Resp 18 12/03/24 23:45 BP 168/86 H 12/03/24 23:45 Pulse Ox 100 12/03/24 23:45 O2 Del Method Room Air 12/03/24 23:45 BMI result Body Mass Index 23.3 Vital signs have been reviewed and appear to be correct. Blood pressure elevated. Heart rate normal. Respiratory rate normal. Temperature normal. Oxygen saturation normal. Appearance:Anxious, Alert. Oriented X3. No acute distress. Head: Normal external exam. Normocephalic. Atraumatic. No Smart signs noted. No raccoon eyes noted Eyes: PERRLA. EOMI. Conjunctiva and sclera normal. Eyelids normal. ENT: TM's Normal. Pharynx normal. Uvula midline. Moist mucous membranes. No trismus noted. No drooling noted. No muffled voice noted. Neck: Normal inspection. Neck supple. FROM. No adenopathy. Thyroid Normal. No meningeal signs. No neck mass noted. CVS: Normal heart rate and rhythm. Heart sound normal. No murmurs noted. Pulses normal throughout. Respiratory: No respiratory distress. Painless inspiration. Breath sounds normal. No wheezes/rales/rhonchi noted. Chest nontender. No accessory muscle usage noted or decreased air movement noted. Abdomen: Soft and nontender. Bowel sounds normal in all 4 quadrants. No distention noted. No organomegaly noted. No visible injury noted. Back: No CVA tenderness. Full range of motion noted. Skin: Skin warm and dry. Normal skin color. Normal skin turgor. No rashes/lesions/lacerations noted. Extremities: No lower extremity edema. Extremities exhibit normal range of motion. Extremities nontender. Neuro: Oriented X 3. Cranial nerve exam: II-XII are grossly intact No motor deficit. No sensory deficit. Reflexes normal. Course Reevaluation(s) Reevaluation #1: Palpitation. EKG is a normal sinus rhythm at 80 beats per minutes, no chest pain, no shortness of breath. Labs are unremarkable. Patient was instructed to keep recording blood pressure 3 times a day for the next week and shows a records to her PCP to determine how many medication and what is the dose for her blood pressure medication. Will discharge the patient to follow-up with telecommunications field technician if the symptoms persist patient may need a Holter monitor. Time: 00:49 Medical Decision Making Differential Diagnosis Differential Diagnoses: The differential diagnosis associated with the presentation includes ( ACS, dysrhythmia, pneumonia, pneumothorax, pleural effusion, Electrolyte derangement, severe anemia.) Admission/Observation Consideration of admission/observation: Escalation of care including admission/observation considered Lab Data MDM Lab Attestation statement: I reviewed the patient's lab results. 12/04/24 00:01 12/04/24 00:01 Labs: Lab Results 12/04/24 Range/Units 00:01 WBC 5.0 (4.8-10.8) X10*3/uL RBC 4.12 L (4.20-5.50) X10*6/uL Hgb 12.9 (12.0-16.0) g/dl Hct 36.1 L (37.0-47.0) % MCV 87.6 (80.0-98.0) fL MCH 31.3 (27.0-33.0) pg MCHC 35.7 H (31.0-35.0) g/dl RDW 11.8 (11.0-16.0) % Plt Count 188 (160-400) X10*3/uL MPV 10.1 (9.4-12.3) fL Immature Gran % (Auto) 0.2 (0.0-0.4) % Neut % (Auto) 47.3 (45-73) % Lymph % (Auto) 42.7 H (20-40) % [place] % (Auto) 8.2 (2-11) % Eos % (Auto) 1.2 (0-4) % Baso % (Auto) 0.4 (0-2) % Lymph # (Auto) 2.1 (1.2-4.9) X10*3/uL [place] # (Auto) 0.4 (0.1-1.2) X10*3/uL Eos # (Auto) 0.1 (0.0-0.4) X10*3/uL Baso # (Auto) 0.0 (0.0-0.2) X10*3/uL Abs Immat Gran (auto) 0.01 (0.00-0.03) X10*3/uL Absolute Neuts (auto) 2.4 (2.0-8.3) x10*3/uL Absolute Nucleated RBC 0.000 (0.0-0.012) X10*3/uL Nucleated RBC % (auto) 0.0 (0.0-0.2) /100WBC Sodium 140 (135-145) mmol/L Potassium 4.3 (3.3-5.1) mmol/L Chloride 107 (96-108) mmol/L Carbon Dioxide 24 (22-29) mmol/L Anion Gap 13 (12-20) BUN 19 H (9-16) mg/dL Creatinine 0.61 (0.5-1.4) mg/dL Estim Creat Clear Calc 71.7 Estimated GFR > 60 Random Glucose 107 (60-115) mg/dL Calcium 9.5 (8.4-10.2) mg/dL Total Bilirubin 0.3 (0.0-1.0) mg/dL AST 23 (5-31) U/L ALT 17 (0-31) U/L Alkaline Phosphatase 77 (39-117) U/L Troponin I High Sens < 2.7 (<3.5-17.0) ng/L Total Protein 6.8 (6.5-8.0) g/dL Albumin 4.6 (3.5-5.0) g/dL Independent Interpretation I performed an independent interpretation of an: EKG ( Normal sinus rhythm at 80 beats per minutes, normal intervals, no ST-T changes, no change from previous EKG.) Discharge Plan Discharge Clinical Impression: Palpitations Patient Disposition: Home, Self-Care Instructions: Heart Palpitations (ED) Additional Instructions: take your blood pressure in 3 different times a day and record the readings for 1 week reviews those record with your PCP in 1 week. Prescriptions: No Action alendronate 70 mg tablet 1 tab PO TH levothyroxine 88 mcg tablet 1 tab PO DAILY@0630 calcium carbonate-vitamin D3 600 mg(1,500mg) -200 unit Tablet 1 tab PO DAILY aspirin 81 mg Tablet,Delayed Release (Dr/Ec) 81 mg PO DAILY Qty: 30 0RF amlodipine 2.5 mg tablet 2.5 mg PO DAILY Qty: 14 0RF (DME) blood pressure monitor Kit See Rx Instructions .Route Qty: 1 0RF Rx Instructions: As directed ketorolac 10 mg tablet 10 mg PO TID PRN (Reason: pain) Qty: 10 0RF cyclobenzaprine 5 mg tablet 5 mg PO TID PRN (Reason: muscle spasm) Qty: 10 0RF Rx Instructions: Do not drive or use machinery after taking this medication amlodipine 10 mg tablet 10 mg PO DAILY Qty: 30 0RF Referrals: Newton Rayo MD [Primary Care Provider] - Print Language: Italian
[2024-12-04 00:39] VITALS: BP 161/64; PULSE 60; RESP 16; O2SAT 99
[2024-12-04 01:22] VITALS: BP 150/69; PULSE 62; RESP 18; TEMP 36.7; O2SAT 98
== END 2024-12-04 01:23 | disposition home or self-care (01) ==
PROVIDERS: Emergency Provider Emergency Medicine; PCP Internal Medicine
DX: R00.2 Palpitations (principal); I10 Essential (primary) hypertension; Z79.899 Other long term (current) drug therapy
CPT/HCPCS: 36415; 80053; 84484; 85025; 93005; 99283; 99284

== ENCOUNTER → 2024-12-03 23:39 | Outpatient (BNV) | payer OTHER, SELFPAY | PROVIDERS: Emergency Provider Emergency Medicine; PCP Internal Medicine; Visit Provider Internal Medicine Cardiovascular Disease | DX: R00.0 Tachycardia, unspecified (principal) | CPT/HCPCS: 93010 ==

== ENCOUNTER 2024-12-30 08:51 | Outpatient (AMB) | payer OTHER, SELFPAY ==
--- NOTE | 2024-12-30 08:53 | MHC.OFFVIS ---
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 She is a pleasant 74-year-old woman who was recently diagnose with hypertension and has had rapidly escalating therapy. However since November she has been noticing symptoms of lightheadedness. She says the symptoms are mostly when she gets up from either supine position in the sitting position she feels like she is lightheaded and feels like she would pass out. She does not feel well. She sometimes pushes through these symptoms in his symptoms usually resolved. She has not had an actual syncopal episode. She has had no associated symptoms of chest pain or shortness of breath or prolonged palpitations. She says she does feel unwell with these symptoms. For these reasons her symptoms but elevated blood pressures noted recently when she presented emergency room she was started on amlodipine 10 mg. Because of the symptoms amlodipine recently he has been reduced to 7.5 mg and her medications have been changed to only be taken at nighttime. She drinks about 32 oz of water a day. She is watching the salt in her diet. She said she remains very active. She has no symptoms of exertional chest pain or shortness of breath. She has no focal neurologic deficits. She denies any symptoms of neuropathy. She denies any symptoms of movement disorders. Her lab work recently was within normal limits. She had EKGs done in the ED and today which are within normal limits. She had an echo performed about couple weeks ago at an outside facility, do not have a copy of the report and she says this is not been read as yet. She was recently started on Paxil although she has only taken 4 doses because she was getting anxious with these symptoms. She is here for further management of these symptoms. [facility] Medical History Dysarthria Hypertension Hyperparathyroidism Surgical History H/O: hysterectomy Family History Mother No problems noted. Father No problems noted. Social History Alcohol intake: current Alcohol intake frequency: holidays/special occasions only Alcohol type: wine Patient Tobacco Use Status: Never used Tobacco service: No Current occupational status: employed Review of Systems Const Denies weakness ENT Reports no additional complaints and Reports dizziness Card Reports no additional complaints, Denies chest pain, Denies chest pain with activity, Denies syncope, Denies rapid heart rate, Denies pedal edema, Denies edema, Denies leg edema, Denies lightheadedness, Denies palpitations, Denies dyspnea, Denies dyspnea on exertion and Denies orthopnea Resp Denies cough, Denies dyspnea and Denies dyspnea on exertion GI Denies hematochezia and Denies change in stool character Musc Denies abnormal gait, Denies muscle cramps, Denies muscle weakness, Denies numbness, Denies radiating pain into limb and Denies tingling Neuro Denies abnormal gait, Reports dizziness, Denies syncope, Denies numbness, Denies tingling and Denies weakness Endo Denies palpitations Physical Exam Vital Signs: Last Vital Signs Pulse 68 12/30/24 09:05 BP 100/60 12/30/24 09:05 BMI result Body Mass Index 23.3 Const General: cooperative, comfortable, no acute distress, well developed, alert, awake, Physically active and well groomed Nutritional Appearance: thin Orientation/consciousness: patient oriented x3 Limitations: no limitations HEENT Head: Yes normocephalic and Yes atraumatic Neck Neck: Yes trachea midline, Yes supple and Yes no JVD Resp Effort & Inspection: normal respiratory effort Auscultation: clear to auscultation bilaterally Cardio Jugular venous distension: no JVD Palpation: normal PMI Rate: regular rate Rhythm: regular rhythm Heart sounds: S1 normal heart sound present, S2 normal heart sound present, no click, no gallops, no murmurs and no rubs GI Auscultation: normal bowel sounds Skin General skin exam: no rashes or lesions noted Neuro General: patient oriented x3 and no focal motor deficits Extrem General: Yes no clubbing, cyanosis or edema Psych Appearance: grossly normal Office Procedures EKG Details: EKG shows normal sinus rhythm with normal EKG 31004-[id number], Complete Assessment & Plan Assessment & Plan (1) Labile blood pressure: Code(s): R09.89 - Other specified symptoms and signs involving the circulatory and respiratory systems Category: Medical Plan: Labile blood pressure with noted orthostasis on today's exam with normal supine blood pressure. This would be a very difficult situation to resolve. This is usually suggestive of underlying autonomic dysfunction which is unusual as she has no other neurologic symptoms. I have advised her to reduce amlodipine to 5 mg daily and continue to take it at nighttime. I have advised her to switch losartan to a.m. dosing. Advised to closely monitor her blood pressure measurements and log them. We discussed about concept of permissive higher blood pressure given significant orthostatic symptoms. I have advised her to gradually increase her fluid intake to 64 oz a day. Avoid salt intake. Stress mitigation strategies were discussed. Will obtain a tilt-table test which has already been scheduled in January. Will follow up with the echo result done at outside facility. Request a Holter monitor as well as renal duplex to rule out renal artery stenosis. Orthostatic precautions were discussed. She has no other symptoms of ischemia. Will follow up in the clinic in 2 months time, sooner p.r.n.. Thank you for allowing me to partake in her care Medications: Discontinued aspirin Discontinued Reason: Patient no longer taking 81 mg PO DAILY 30 tabs 0RF amlodipine Discontinued Reason: Patient no longer taking 2.5 mg PO DAILY 14 tabs 0RF cyclobenzaprine Do not drive or use machinery after taking this medication Discontinued Reason: Patient no longer taking 5 mg PO TID PRN 10 tabs 0RF muscle spasm ketorolac Discontinued Reason: Patient no longer taking 10 mg PO TID PRN 10 tabs 0RF pain Coding Level of Care Code New Pt Level 4 (39674) Complex EM visit Add On G2211 Diagnoses Labile blood pressure R09.89 CPT Codes EKG - CPT: 56180-[id number], Complete ([id number])
[2024-12-30 08:54] VITALS: BP 122/68; PULSE 66; BMI 23.3
[2024-12-30 09:02] VITALS: BP 112/60; PULSE 66
[2024-12-30 09:05] VITALS: BP 100/60; PULSE 68
--- OUTSIDE RECORDS SUMMARY | 2024-12-30 09:22 | XMS_ITS | Encounter Summary ---
Author Organization [facility] Address [id number] [place] [id number] Care Team Providers Care Word Processor Technician Name Role Phone Martha Martinez MD Primary Care Provider [phone] Reason for Visit * Reason Onset Date Comments ECHO 12/03/2024 ECHO ORDER Encounter Details Date Type Department Care Team (Late st Contact Info) Description 12/03/2024 Telephone Internal Medicine - [place] [address] [place] [phone] Martha Martinez MD [address] [place] [address] ECHO (ECHO ORDER) Social History Tobacco Use Types Packs/Day Years Used Date Smoking Tobacco: Never Passive Smoke Exposure: Never Smokeless Tobacco: Never Comments Unknown Sex and Gender Information Value Date Recorded Sex Assigned at Female 12/21/2024 1:51 PM EDT Legal Sex Female 8:58 PM EST Gender Identity Female 12/21/2024 1:51 PM EDT Sexual Orientation Straight 12/21/2024 1: 51 PM EDT documented as of this encounter Progress Notes * Lila Jacobo - 12/03/2024 2:09 PM EDT Good afternoon, We received an Echo order for this patient to be scheduled. Unfortunately, the patient declined to schedule with our office due to our next available appointments right now are in February 2025. Patient states she will call [facility] to get in sooner there. We will disregard the Echo order at this time. Thank you, [facility] Scheduling documented in this encounter Plan of Treatment Upcoming Encounters Date Type Department Care Team (Late st Contact Info) Description 01/12/2025 9:30 AM EDT Evaluation [facility] - [place] [address] [facility] [address] [place] [address] Aishwarya Jovel, PT documented as of this encounter Visit Diagnoses Not on filedocumented in this encounter Care Teams Word Processor Technician Relationship Specialty Start Date End Date Martha Martinez MD [address] [facility] [address] [place] [phone] PCP - General Internal Medicine 12/25/24 documented as of this encounter
== END 2024-12-30 09:33 | disposition home or self-care (01) ==
LOC: HO.HCS 08:51
PROVIDERS: PCP Internal Medicine; Visit Provider Internal Medicine Cardiovascular Disease
DX: R09.89 Other specified symptoms and signs involving the circulatory and respiratory systems (principal)
CPT/HCPCS: 93010; 99204; G2211

== ENCOUNTER → 2024-12-30 08:51 | Outpatient (BNVA) | payer OTHER, SELFPAY | PROVIDERS: PCP Internal Medicine; Visit Provider Internal Medicine Cardiovascular Disease | DX: R09.89 Other specified symptoms and signs involving the circulatory and respiratory systems (principal) | CPT/HCPCS: 93005 ==

== ENCOUNTER → 2025-01-12 07:36 | Outpatient (REF) | payer OTHER, SELFPAY ==
--- OUTSIDE RECORDS SUMMARY | 2025-01-12 07:38 | XMS_ITS | Encounter Summary ---
Author Organization [facility] Address [address] [place] [address] Care Team Providers Care Product Safety Compliance Leader Name Role Phone Martha Martinez MD Primary Care Provider [phone] Reason for Visit * Reason Onset Date Comments Lab Results 01/11/2025 Encounter Details Date Type Department Care Team ([facility] st Contact Info) Description 01/11/2025 Telephone Internal Medicine - [place] [address] [facility] [address] [place] [id number] Elida Green MA Lab Results Social History Tobacco Use Types Packs/Day Years [...] as of this encounter Progress Notes * Elida Green MA - 01/11/2025 1:53 PM EDT Tried to reach patient, no answer, left message to call back 01/11/25 Elida Green MA * Elida Green MA - 01/11/2025 1:53 PM EDT ----- Message from Vinita Martinez MD sent at 01/07/2025 9:15 PM EDT ----- Echo looks good documented in this encounter Plan of Treatment Upcoming Encounters Date Type Department Care Team (Late st Contact Info) Description 01/12/2025 9:30 AM EDT Evaluation [facility] [address] [facility] [address] [place] [address] Aishwarya Jovel, PT documented as of this encounter Visit Diagnoses Not on filedocumented in this encounter Care Teams Product Safety Compliance Leader Relationship Specialty Start Date End Date Martha Martinez MD [address] [facility] [address] [place] [address] PCP - General Internal Medicine 12/25/24 documented as of this encounter
--- NOTE | 2025-01-12 07:47 | HM_ITS ---
* Total monitoring time 3 days. * Underlying rhythm is sinus with an average rate of 66/Min. * Rare supraventricular ectopy. Short runs noted. Up to 17 beats. * Rare ventricular ectopy. * No significant pauses or high-grade AV blocks. * Anxiety, increased heart rate, dizziness, lightheadedness, nausea, in patient diary correlates with sinus rhythm, mild sinus tachycardia. MTDD
== END ==
LOC: HO.CARD 07:36
PROVIDERS: PCP Internal Medicine; Visit Provider Internal Medicine Cardiovascular Disease
DX: R09.89 Other specified symptoms and signs involving the circulatory and respiratory systems (principal)
CPT/HCPCS: 93242

== ENCOUNTER → 2025-01-12 07:47 | Outpatient (BNV) | payer OTHER, SELFPAY | PROVIDERS: PCP Internal Medicine; Visit Provider Internal Medicine | DX: I49.3 Ventricular premature depolarization (principal); I47.10 Supraventricular tachycardia, unspecified | CPT/HCPCS: 93244 ==

== ENCOUNTER 2025-01-22 07:08 | Outpatient (RCR) | payer OTHER, SELFPAY ==
[2025-01-22 07:02] VITALS: BP 147/73; PULSE 65; O2SAT 98
== END 2025-03-02 10:20 | disposition home or self-care (01) ==
LOC: HO.PT 07:08
PROVIDERS: PCP Internal Medicine; Visit Provider Internal Medicine
DX: R42 Dizziness and giddiness (principal)
CPT/HCPCS: 97161

== ENCOUNTER 2025-02-23 07:27 | Emergency (ER) | payer OTHER, SELFPAY ==
[2025-02-23 07:29] VITALS: BP 149/68; PULSE 71; RESP 18; TEMP 36.6; O2SAT 99; BMI 22.7
--- OUTSIDE RECORDS SUMMARY | 2025-02-23 07:50 | XMS_ITS | Clinical Summary ---
Author Organization [address] Address [address] [place] [address] Phone Care Team Providers Care Professor Of Literature Name Role Phone Martha Martinez MD Primary Care Provider [phone] Allergies No known active allergies Medications nystatin (MYCOSTATIN) 100,000 unit/mL suspension Take 4 mL by mouth 3 (three) times a day. Swish in mouth and swallow. 280 mL 5 Active Additional Information Patient not taking.Reported on 12/03/2024 PARoxetine (PAXIL) 10 mg tablet Take 1 tablet (10 mg total) by mouth 1 (one) time each day in the morning. 90 each 3 5 Active meclizine (ANTIVERT) 25 mg tablet Take 1 tablet (25 mg total) by mouth 2 (two) times a day if needed for dizziness. 60 tablet 2 5 Active fluticasone propionate (FLONASE) 50 mcg/actuation nasal spray Administer 2 sprays into each nostril 1 (one) time each day. Shake gently. Before first use, prime pump. After use, clean tip and replace cap. 16 g 5 5 026 Active fluticasone propionate (FLONASE) 50 mcg/actuation nasal spray Administer 2 sprays into each nostril 1 (one) time each day. Shake gently. Before first use, prime pump. After use, clean tip and replace cap. 16 g 5 5 026 Active amLODIPine (NORVASC) 5 mg tablet Take 1.5 tablets (7.5 mg total) by mouth 1 (one) time each day. 90 each 1 5 Active losartan (Cozaar) 50 mg tablet Take 1 tablet (50 mg total) by mouth 2 (two) times a day. 180 each 1 5 Active amLODIPine (NORVASC) 5 mg tablet Take 1 tablet (5 mg total) by mouth 1 (one) time each day. 90 each 5 5 025 Discontinu ed(Reorder ) losartan (Cozaar) 50 mg tablet Take 1 tablet (50 mg total) by mouth 1 (one) time each day. 90 each 2 5 025 Discontinu ed(Reorder ) amoxicillin-cl avulanate (AUGMENTIN) 875-125 mg per tablet Take 1 tablet by mouth 2 (two) times a day for 7 days. 14 tablet 5 025 Discontinu ed(Reorder ) predniSONE (DELTASONE) 20 mg tablet Take 3 tabs (60mg) daily for 3 days, then take 2 tabs (40mg) daily for 3 days, then take 1 tab (20mg) daily for 3 days. 18 tablet 5 025 Discontinu ed(Reorder ) ondansetron (ZOFRAN) 4 mg tablet Take 1 tablet (4 mg total) by mouth every 8 (eight) hours if needed for nausea or vomiting for up to 7 days. 20 tablet 5 025 amoxicillin-cl avulanate (AUGMENTIN) 875-125 mg per tablet Take 1 tablet by mouth 2 (two) times a day for 7 days. 14 tablet 5 025 predniSONE (DELTASONE) 20 mg tablet Take 3 tabs (60mg) daily for 3 days, then take 2 tabs (40mg) daily for 3 days, then take 1 tab (20mg) daily for 3 days. 18 tablet 5 025 Encounters Date Type Department Care Team Description 02/15/2025 Telephone Internal Medicine - [place] [address] [facility] [address] [place] [address] Martha Martinez MD 02/11/2025 1:47 PM EDT - 02/11/2025 11:59 PM EDT Hospital Encounter [facility] CT Scan [address] [place] [address] Weight loss; Appetite loss; Nausea; Dizziness Discharge Disposition: Home or Self Care 01/28/2025 Telephone Internal Medicine - [place] [address] [phone] Martha Martinez MD [place] - Referral 01/27/2025 Telephone Internal Medicine [facility] [address] [phone] Elida Green [place] 01/26/2025 Telephone Internal Medicine [facility] [address] [phone] Martha Martinez MD 01/11/2025 [place] [facility] [address] [phone] Elida Green [place] Lab Results 12/18/2024 11:00 AM EDT Ancillary Procedure [facility] [address] [place] [address] Cardiac murmur; Lightheadedness; TIA (transient ischemic attack) 12/16/2024 Telephone Internal Medicine [address] [phone] Tres Morse [place] Results 12/10/2024 Telephone Internal [address] [address] Martha Martinez MD 12/03/2024 4:46 PM EDT - 12/03/2024 11:59 PM EDT Hospital Encounter Radiology Department - [address] [address] Dizziness Discharge Disposition: Home or Self Care 12/03/2024 10:30 AM EDT Office Visit Internal Medicine [address] [phone] Martha Martinez MD Dizziness (Primary Dx); Hypertension, unspecified type; Facial numbness 12/03/2024 Telephone Internal Medicine [facility] [address] [phone] Martha Martinez MD ECHO (ECHO ORDER) 12/01/2024 1:44 PM EDT - 12/01/2024 11:59 PM EDT Hospital Encounter [facility] Ultrasound [address] [place] [phone] Cardiac murmur; Lightheadedness; TIA (transient ischemic attack) Discharge Disposition: Home or Self Care 12/01/2024 Telephone Internal Medicine [facility] [address] [phone] Martha Martinez MD 12/01/2024 Telephone Internal Medicine [facility] [address] [phone] Martha Martinez MD from Last 3 Months Social History Tobacco Use Types Packs/Day Years Used Date Smoking Tobacco: Never Passive Smoke Exposure: Never Smokeless Tobacco: Never Tobacco Cessation:Counseling Given: Not Answered Comments Unknown Sex and Gender Information Value Date Recorded Sex Assigned at Female 12/21/2024 1:51 PM EDT Legal Sex Female 8:58 PM EST Gender Identity Female 12/21/2024 1:51 PM EDT Sexual Orientation Straight 12/21/2024 1: 51 PM EDT Obstetrics History Last Filed Vital Signs Vital Sign Reading Time Taken Comments Blood Pressure 118/70 12/18/2024 11:45 AM EDT Pulse 65 12/03/2024 9:50 AM EDT Temperature 36.2 C (97.1 F) 12/03/2024 9:50 AM EDT Respiratory Rate - - Oxygen Saturation 100% 12/03/2024 9:50 AM EDT Inhaled Oxygen Concentration - - Weight 65.3 kg (144 lb) 12/18/2024 11:45 AM EDT Height 165.1 cm (5' 5 ) 12/18/2024 11:45 AM EDT Body Mass Index 23.96 12/18/2024 11:45 AM EDT Plan of Treatment Health Maintenance Due Date Last Done Comments Pneumococcal Vaccine: 50+ Years (1 of 1 - PCV) 1999 Zoster Vaccines (1 of 2) 1999 Cholesterol Screening (Lipid Panel) 08/20/2019 Colorectal Cancer Screening: Colonoscopy 08/20/2019 Falls Risk Assessment 08/20/2019 Hepatitis C Screening 08/20/2019 Social Influencers of Health Screening 08/20/2019 RSV Immunization Adult Patients (1 - 1-dose 75+ series) 02/29/2024 COVID-19 Vaccine (3 - 2023- season) 2024 11/15/2020, 10/25/2020 Depression Screening 07/15/2024 Influenza Vaccine (#1) 2025 Hypertension/CHF/CAD Annual BMP Blood Test 01/26/2026 01/26/2025, 11/13/2024 DTaP,Tdap,and Td Vaccines (2 - Td [...] Procedure Name Priority Date/Time Associated Diagnosis Comments CT CHEST/ABDOMEN/PELVIS W CONTRAST Routine 02/11/2025 2:11 PM EDT Weight loss Appetite loss Nausea Dizziness CBC WITH AUTO DIFFERENTIAL Routine 01/26/2025 3:34 PM EDT Hypertension, unspecified type Anemia, unspecified type CBC AND DIFFERENTIAL Routine 01/26/2025 3:34 PM EDT Hypertension, unspecified type Anemia, unspecified type BASIC METABOLIC PANEL Routine 01/26/2025 3:34 PM EDT Hypertension, unspecified type Anemia, unspecified type TRANSTHORACIC ECHOCARDIOGRAM (TTE) COMPLETE Routine 12/18/2024 11:49 AM EDT Cardiac murmur Lightheadedness TIA (transient ischemic attack) MR BRAIN WO CONTRAST STAT 12/03/2024 5:46 PM EDT Dizziness VAS US DUPLEX CAROTID BILATERAL Routine 12/01/2024 2:03 PM EDT Cardiac murmur Lightheadedness TIA (transient ischemic attack) [facility] SCREENING DIGITAL Routine 12/31/2023 1:02 PM EDT Encounter for screening mammogram for malignant neoplasm of breast [facility] DEXA AXIAL SKELETON Routine 11/26/2022 8:13 AM EDT Age-related osteoporosis without current pathological fracture from Last 3 Months or Most Recently Relevant to Health Maintenance Results * CT Chest/Abdomen/Pelvis w Contrast (02/11/2025 2:11 PM EDT) Anatomical Region Laterality Modality Body Computed Tomogra phy 02/17/2025 8:22 AM EDT Impressions 02/17/2025 8:38 AM EDT Previous right hemithyroidectomy. No suspicious mass or adenopathy. No free fluid. No radiographic evidence of occult malignancy. -------- FINAL REPORT -------- Dictated By: Froy Terrazas Dictated Date: 02/17/2025 08:22 ET Assigned Physician: Froy Terrazas Reviewed and Electronically Signed By: Froy Terrazas Signed Date: 02/17/2025 08:38 ET Workstation ID: [id number] Transcribed By: Self Edit Transcribed Date: 02/17/2025 08:22 ET Narrative 02/17/2025 8:38 AM EDT EXAMINATION: CT CHEST, ABDOMEN and PELVIS WITH CONTRAST CLINICAL INFORMATION: Nausea. Assess for occult malignancy. COMPARISON: None TECHNIQUE: Multidetector CT. Examination of the chest, abdomen and pelvis. Multidetector CT. Examination of the chest, abdomen and pelvis following IV administration of nonionic contrast. Reformatting in the coronal and sagittal planes. DLP: 758 mGy-cm Dose optimization was performed including the use of low-dose iterative reconstruction technique with automatic exposure control based on patient size. Type of contrast: ISOVUE 370 Volume of IV contrast: 90 mL Volume of contrast discarded: 0 mL FINDINGS: LUNG: There is no abnormality of the trachea or mainstem bronchi. No suspicious mass or nodule. There is no generalized thickening of the intralobular septa. There is no evidence of acute pneumonia. There are some linear and bandlike opacities in the mid lower lung zones on each side which are likely fibrotic and/or post infectious. There is no honeycomb formation. MEDIASTINUM: There are surgical clips in the expected region of the right lobe of the thyroid. There is a tiny less than 1 cm low attenuating nodule in the left lobe of the thyroid. There are no enlarged mediastinal or hilar lymph nodes and there is no suspicious abnormality of the esophagus. CARDIAC: The heart is not enlarged. No pericardial fluid or thickening CORONARY CALCIFICATION: Mild coronary calcification VASCULAR: There is no thoracic aortic aneurysm. The main pulmonary artery is normal caliber PLEURAL: There is no pleural fluid or pneumothorax AXILLA/CHEST WALL: There are no enlarged axillary lymph nodes. No chest wall mass demonstrated LIVER: The liver is normal in size, shape, and attenuation. No suspicious focal hepatic lesion or biliary ductal dilatation is present. There is a sharply circumscribed 1 cm fluid attenuating lesion in the ventral aspect of the left lobe of the liver which is likely a cyst. No suspicious features. BILIARY TRACT: No opaque gallstone. No biliary dilation. SPLEEN: Normal size. No focal lesion. PANCREAS: No suspicious mass. No surrounding fluid. ADRENAL GLANDS: No suspicious abnormality. KIDNEYS: The kidneys enhance symmetrically. There is no suspicious renal mass. There are low attenuating areas in the central aspect of each kidney. I suspect parapelvic cysts. There is no dilation of the mid or distal ureter on either side. URINARY BLADDER: The bladder is nearly empty. No suspicious abnormality. PELVIC VISCERA: The uterus is not definitely identified. No suspicious adnexal mass or collection. GASTROINTESTINAL TRACT: The colon is redundant with a large amount of fecal residue. No localized colonic wall thickening. Contrast within some nondistended small bowel. The stomach is not well distended. No intraperitoneal mass or collection. ABDOMINAL WALL: No significant hernia is appreciated. LYMPHOVASCULAR STRUCTURES AND FLUID: There is arterial calcification. The portal vein enhances. There are no enlarged abdominal or pelvic lymph nodes. There is no free intraperitoneal fluid. MUSCULOSKELETAL: No acute or suspicious osseous abnormality. Procedure Note Froy Terrazas MD - 02/17/2025 EXAMINATION: CT CHEST, ABDOMEN and PELVIS WITH CONTRAST CLINICAL INFORMATION: Nausea. Assess for occult malignancy. COMPARISON: None TECHNIQUE: Multidetector CT. Examination of the chest, abdomen and pelvis. Multidetector CT. Examination of the chest, abdomen and pelvis followingIV administration of nonionic contrast. Reformatting in the coronal and sagittal planes. DLP: 758 mGy-cm Dose optimization was performed including the use of low-dose iterativereconstruction technique with automatic exposure control based on patientsize. Type of contrast: ISOVUE 370 Volume of IV contrast: 90 mL Volume of contrast discarded: 0 mL FINDINGS: LUNG: There is no abnormality of the trachea or mainstem bronchi. No suspicious mass or nodule. There is no generalized thickening of theintralobular septa. There is no evidence of acute pneumonia. There are some linear and bandlike opacities in the mid lower lung zoneson each side which are likely fibrotic and/or post infectious. There is nohoneycomb formation. MEDIASTINUM: There are surgical clips in the expected region of the rightlobe of the thyroid. There is a tiny less than 1 cm low attenuating nodulein the left lobe of the thyroid. There are no enlarged mediastinal or hilar lymph nodes and there is nosuspicious abnormality of the esophagus. CARDIAC: The heart is not enlarged. No pericardial fluid or thickening CORONARY CALCIFICATION: Mild coronary calcification VASCULAR: There is no thoracic aortic aneurysm. The main pulmonary arteryis normal caliber PLEURAL: There is no pleural fluid or pneumothorax AXILLA/CHEST WALL: There are no enlarged axillary lymph nodes. No chestwall mass demonstrated LIVER: The liver is normal in size, shape, and attenuation. No suspiciousfocal hepatic lesion or biliary ductal dilatation is present. There is asharply circumscribed 1 cm fluid attenuating lesion in the ventral aspectof the left lobe of the liver which is likely a cyst. No suspiciousfeatures. BILIARY TRACT: No opaque gallstone. No biliary dilation. SPLEEN: Normal size. No focal lesion. PANCREAS: No suspicious mass. No surrounding fluid. ADRENAL GLANDS: No suspicious abnormality. KIDNEYS: The kidneys enhance symmetrically. There is no suspicious renalmass. There are low attenuating areas in the central aspect of eachkidney. I suspect parapelvic cysts. There is no dilation of the mid or distal ureter on either side. URINARY BLADDER: The bladder is nearly empty. No suspiciousabnormality. PELVIC VISCERA: The uterus is not definitely identified. No suspiciousadnexal mass or collection. GASTROINTESTINAL TRACT: The colon is redundant with a large amount offecal residue. No localized colonic wall thickening. Contrast within some nondistended small bowel. The stomach is not welldistended. No intraperitoneal mass or collection. ABDOMINAL WALL: No significant hernia is appreciated. LYMPHOVASCULAR STRUCTURES AND FLUID: There is arterial calcification. Theportal vein enhances. There are no enlarged abdominal or pelvic lymph nodes. There is no freeintraperitoneal fluid. MUSCULOSKELETAL: No acute or suspicious osseous abnormality. IMPRESSION: Previous right hemithyroidectomy. No suspicious mass or adenopathy. No free fluid. No radiographic evidence of occult malignancy. -------- FINAL REPORT -------- Dictated By: Froy Terrazas Dictated Date: 02/17/2025 08:22 ET Assigned Physician: Froy Terrazas Reviewed and Electronically Signed By: Froy Terrazas Signed Date: 02/17/2025 08:38 ET Workstation ID: [id number] Transcribed By: Self Edit Transcribed Date: 02/17/2025 08:22 ET us Martha Martinez MD [facility] CT PROCEDURES Final Result * CBC auto differential (01/26/2025 3:34 PM EDT) WBC 6.1 4.8 - 10.8 K/[facility] LAB HEMETOLOGY METHOD 01/26/2025 6:37 PM EDT [facility] RBC 4.20 3.80 - 4.80 M/mcL LAB HEMETOLOGY METHOD 01/26/2025 6:37 PM EDT [facility] Hemoglobin 12.8 11.5 - 16.0 g/dL LAB HEMETOLOGY METHOD 01/26/2025 6:37 PM EDT [facility] Hematocrit 39.2 35.0 - 47.0 % LAB HEMETOLOGY METHOD 01/26/2025 6:37 PM EDT [facility] MCV 93.3 79.0 - 98.0 FL LAB HEMETOLOGY METHOD 01/26/2025 6:37 PM EDT [facility] MCH 30.5 27.0 - 32.0 pcg LAB HEMETOLOGY METHOD 01/26/2025 6:37 PM EDT [facility] MCHC 32.7 32.0 - 37.0 g/dL LAB HEMETOLOGY METHOD 01/26/2025 6:37 PM EDT [facility] RDW 12.2 11.0 - 15.0 % LAB HEMETOLOGY METHOD 01/26/2025 6:37 PM EDT [facility] Platelets 296 130 - 400 K/mcL LAB [facility] MPV 10.5 7.0 - 11.0 FL LAB HEMETOLOGY [facility]25 6[facility] NRBC 0.0 <1.0 % LAB HEMETOLOGY METHOD 01/26/2025 6:37 PM EDT [facility] NRBC Absolute 0.00 <0.10 K/mcL LAB HEMETOLOGY METHOD 01/26/2025 6:37 PM EDT [facility] Neutrophils Relative 60.6 % LAB HEMETOLOGY METHOD 01/26/2025 6:37 PM EDT [facility] Lymphocytes Relative 29.5 % LAB HEMETOLOGY METHOD 01/26/2025 6:37 PM EDT [facility] Monocytes Relative 7.7 % LAB HEMETOLOGY METHOD 01/26/2025 6:37 PM EDT [facility] Eosinophils Relative 1.1 % LAB HEMETOLOGY METHOD 01/26/2025 6:37 PM EDT [facility] Basophils Relative 0.8 % LAB HEMETOLOGY METHOD 01/26/2025 6:37 PM EDT [facility] Immature Granulocytes Relative 0.3 % LAB HEMETOLOGY METHOD 01/26/2025 6:37 PM EDT [facility] Neutrophils Absolute 3.71 1.50 - 7.00 K/mcL LAB HEMETOLOGY METHOD [facility]25 6[facility] Lymphocytes Absolute 1.81 1.00 - 5.00 K/mcL LAB HEMETOLOGY METHOD 01/26/2025 6:37 PM EDT [facility] Monocytes Absolute 0.47 0.20 - 1.00 K/mcL LAB HEMETOLOGY METHOD 01/26/2025 6:37 PM EDT [facility] Eosinophils Absolute 0.07 0.00 - 0.50 K/mcL LAB HEMETOLOGY METHOD 01/26/2025 6:37 PM [facility] Basophils Absolute 0.05 0.00 - 0.20 K/mcL LAB HEMETOLOGY METHOD 01/26/2025 6:37 PM EDT [facility] Immature Granulocytes Absolute 0.02 0.00 - 0.03 K/mcL LAB HEMETOLOGY METHOD 01/26/2025 6:37 PM [facility] Blood Venous blood specimen / Unknown Venipuncture / Unknown 01/26/2025 3:34 PM EDT 01/26/2025 3:34 PM EDT us Martha Martinez MD LAB BLOOD ORDERABLES Final Res ult [facility] [address] [place] [address], [place] [phone] * Basic metabolic panel (01/26/2025 3:34 PM EDT) Sodium 137 133 - 145 mmol/L LAB CHEMISTRY METHOD 01/26/2025 7:21 PM [facility] Potassium 4.7 3.5 - 5.5 mmol/L LAB CHEMISTRY METHOD 01/26/2025 7:21 PM [facility] Chloride 103 96 - 110 mmol/L LAB CHEMISTRY METHOD 01/26/2025 7:21 PM [facility] CO2 28 21 - 32 mmol/L LAB CHEMISTRY METHOD 01/26/2025 7:21 PM [facility] Anion Gap 6 3 - 11 LAB CHEMISTRY METHOD 01/26/2025 7:21 PM [facility] Glucose 85 70 - 100 mg/dL LAB CHEMISTRY METHOD 01/26/2025 7:21 PM [facility] BUN 12 5 - 25 mg/dL LAB CHEMISTRY METHOD 01/26/2025 7:21 PM [facility] Creatinine 0.65 0.50 - 1.10 mg/dL LAB CHEMISTRY METHOD 01/26/2025 7:21 PM [facility] eGFR 92 >=60 mL/min/1. 73m2 LAB CHEMISTRY METHOD 01/26/2025 7:21 PM [facility] Comment:Calculation based on the Chronic Kidney Disease Epidemiology Collaboration (CKD-EPI) equation refit without adjustment for race. BUN/Creatinine Ratio 18.5 LAB CHEMISTRY METHOD 01/26/2025 7:21 PM [facility] Calcium 9.5 8.5 - 10.5 mg/dL LAB CHEMISTRY METHOD 01/26/2025 7:21 PM [facility] Blood Venous blood specimen / Unknown Venipuncture / Unknown 01/26/2025 3:34 PM EDT 01/26/2025 3:34 PM EDT us Martha Martinez MD LAB BLOOD ORDERABLES Final Res ult [facility] ([facility] [address] [place] [address], [place] [phone] * TRANSTHORACIC ECHOCARDIOGRAM (TTE) COMPLETE (12/18/2024 11:49 AM EDT) Left Atrium Minor [place] 5.4 cm CV PACS Left Atrium Major [place] 6.3 cm CV PACS LA Area Sys (A2C) 20 cm2 CV PACS LA Area Sys (A4C) 27 cm2 CV PACS LA Volume (BP) 78 mL CV PACS RA Area 12.6 cm2 CV PACS RA 2D Volume 29 mL CV PACS Aortic Sinus Valsalva 3.3 cm CV PACS Ascending Aorta 2.8 cm CV PACS IVSD 0.8 0.6 - 0.9 cm CV PACS LVIDD 5.0 3.8 - 5.2 cm CV PACS LVIDS 2.7 2.2 - 3.5 cm CV PACS LVOT Diameter 2.2 cm CV PACS LVPWD 0.7 0.6 - 0.9 cm CV PACS MV E' Tissue Velocity Lateral 14 cm/s CV PACS MV E' Tissue Velocity Septal 9 cm/s CV PACS LVOT Area 3.8 cm2 CV PACS E Wave Deceleration Time 176 119 - 242 ms CV PACS MV Peak A Fidel 0.64 m/s CV PACS MV Peak E Fidel 0.74 m/s CV PACS PV Acceleration Time 120 ms CV PACS RV Diastolic Basal Dimension 3.8 2.5 - 4.1 cm CV PACS RV S' 15 cm/s CV PACS TAPSE 20 mm CV PACS TR Peak Velocity 2.50 m/s CV PACS TR Peak Gradient 25 mmHg CV PACS E/E' Ratio Septal 8 CV PACS E/E' Ratio Averaged 7 CV PACS Relative Wall Thickness ratio 0.28 CV PACS FS 46 % CV PACS LV Mass 2D 125 g CV PACS E/A Ratio 1.2 CV PACS E/E' Ratio Lateral 5 CV PACS LA Volume Index (BP) 45 mL/m2 CV PACS LVIDD Index 2.91 cm/m2 CV PACS LVIDS Index 1.57 cm/m2 CV PACS LV Mass Index 2D 73 44 - 88 g/m2 CV PACS RA 2D Volume Index 17 15 - 27 mL/m2 CV PACS Ascending Aorta Index 1.63 cm/m2 CV PACS Right Ventricular Peak Systolic Pressure 33 mmHg CV PACS Est. RA Pressure 8 mmHg CV PACS BSA 1.73 m2 CV PACS Anatomical Region Laterality Modality Ultrasound Narrative 01/07/2025 4:53 PM EDT Left ventricle cavity size is normal. Left ventricle wall thickness is normal. No regional LV wall motion abnormalities noted. Left ventricular systolic function is in the normal range with an ejection fraction of 60 to 65%. Right ventricle cavity is normal. Right ventricular systolic function is normal. There is no hemodynamically significant valve disease. Mild valvular abnormalities as below. There is normal left ventricular diastolic function. Normal pulmonary artery systolic pressure. There is moderate left atrial enlargement. Left Ventricle Left ventricle cavity size is normal. Wall thickness is normal. Sigmoid septum is present a benign variant. Systolic function is normal with an ejection fraction of 60- 65%. There are no regional LV wall motion abnormalities. There is no diastolic dysfunction and normal left atrial pressure. Right Ventricle Right ventricle cavity appears normal. Systolic function is normal. Left Atrium Left atrium cavity is moderately dilated. Right Atrium Right atrium cavity is normal. IVC/SVC RA pressures is estimated to be 8 mmHg (IVC diameter >21 mm and decreases >50% during inspiration). Mitral Valve The leaflets are mildly thickened. There is mild annular calcification. There is mild regurgitation. There is no evidence of mitral valve stenosis. Tricuspid Valve The leaflets exhibit normal excursion. There is trace regurgitation. There is no evidence of tricuspid valve stenosis. The right ventricular systolic pressure is normal. The RVSP is estimated at 33 mmHg. Aortic Valve The aortic valve is trileaflet. There is no regurgitation or stenosis. Pulmonic Valve Visualized portions of the pulmonic valve appear normal. There is trace pulmonic valve regurgitation. There is no evidence of pulmonic valve stenosis. Ascending Aorta The aorta appears normal in size. Pericardium Pericardium appears normal. There is no pericardial effusion. Study Details Overall the study quality was adequate. us Martha Martinez MD CV ECHO PROCEDURES Final Resul t * MR Brain wo Contrast (12/03/2024 5:46 PM EDT) Anatomical Region Laterality Modality Head and Neck Magnetic Resonan ce 12/04/2024 10:3 4 AM EDT Narrative 12/04/2024 10:39 AM EDT MRI of the head without intravenous contrast. History nonspecific dizziness. Examination was performed on 1.5 Yumiko magnet without administration of intravenous contrast. No previous studies are available for comparison. There is mild sulcal ventricular prominence reflecting arm some atrophic changes. There is no evidence of midline shift, extra or intra-axial blood fluid collections. There is no visible masses or mass effect in the brain and cerebellum. There is no focal areas of restricted diffusion or magnetic susceptibility artifact. There is no territorial infarctions. There are multiple nonspecific foci of abnormally increased signal in the subcortical deep and periventricular white matter of both cerebral hemispheres most likely due to chronic small vessel ischemia. No focal signal abnormalities were identified in the posterior fossa. Paranasal sinuses and left mastoid processes are unremarkable. There are foci of fluid signal intensity in the right mastoid process. Possibility of otomastoiditis should be considered. CONCLUSIONS: Nonspecific supratentorial white matter signal abnormalities most likely due to chronic small vessel ischemia. Mild atrophic changes. Fluid signal intensity regions in the right mastoid process, possibility of the right otomastoiditis should be considered. -------- FINAL REPORT -------- Dictated By: Senia Delong Dictated Date: 12/04/2024 10:34 ET Assigned Physician: Senia Delong Reviewed and Electronically Signed By: Senia Delong Signed Date: 12/04/2024 10:39 ET Workstation ID: [id number] Transcribed By: Self Edit Transcribed Date: 12/04/2024 10:34 ET Procedure Note Senia Delong MD - 12/04/2024 MRI of the head without intravenous contrast. History nonspecific dizziness. Examination was performed on 1.5 Yumiko magnet without administration ofintravenous contrast. No previous studies are available for comparison. There is mild sulcal ventricular prominence reflecting arm some atrophicchanges. There is no evidence of midline shift, extra or intra-axial blood fluidcollections. There is no visible masses or mass effect in the brain andcerebellum. There is no focal areas of restricted diffusion or magneticsusceptibility artifact. There is no territorial infarctions. There aremultiple nonspecific foci of abnormally increased signal in thesubcortical deep and periventricular white matter of both cerebralhemispheres most likely due to chronic small vessel ischemia. No focalsignal abnormalities were identified in the posterior fossa. Paranasal sinuses and left mastoid processes are unremarkable. There arefoci of fluid signal intensity in the right mastoid process. Possibilityof otomastoiditis should be considered. CONCLUSIONS: Nonspecific supratentorial white matter signal abnormalitiesmost likely due to chronic small vessel ischemia. Mild atrophic changes.Fluid signal intensity regions in the right mastoid process, possibilityof the right otomastoiditis should be considered. -------- FINAL REPORT -------- Dictated By: Senia Delong Dictated Date: 12/04/2024 10:34 ET Assigned Physician: Senia Delong Reviewed and Electronically Signed By: Senia Delong Signed Date: 12/04/2024 10:39 ET Workstation ID: [id number] Transcribed By: Self Edit Transcribed Date: 12/04/2024 10:34 ET us Martha Martinez MD IM MRI PROCEDURES Final Resul t * Vascular US duplex carotid bilateral (12/01/2024 2:03 PM EDT) Anatomical Region Laterality Modality Vascular, Abdomen Ultrasound 12/01/2024 11:1 8 PM EDT Impressions 12/01/2024 11:19 PM EDT No hemodynamically significant stenosis or occlusion. -------- FINAL REPORT -------- Dictated By: Umm Hale Dictated Date: 12/01/2024 23:18 ET Assigned Physician: Umm Hale Reviewed and Electronically Signed By: Umm Hale Signed Date: 12/01/2024 23:19 ET Workstation ID: [id number] Transcribed By: Self Edit Transcribed Date: 12/01/2024 23:18 ET Narrative 12/01/2024 11:19 PM EDT PROCEDURE: Carotid ultrasound. HISTORY: TIA. TECHNIQUE: Grayscale, color Doppler, and spectral Doppler ultrasound evaluation of the carotid and vertebral arteries in the neck. COMPARISON: FINDINGS: Grayscale ultrasound evaluation of the carotid arteries demonstrates atherosclerotic plaque at the left carotid bulb. Spectral Doppler evaluation demonstrates normal carotid arterial waveforms with no focally elevated peak systolic velocity to suggest a hemodynamically significant stenosis. Antegrade flow with normal spectral Doppler tracings in both vertebral arteries. Procedure Note Umm Hale MD - 12/01/2024 PROCEDURE: Carotid ultrasound. HISTORY: TIA. TECHNIQUE: Grayscale, color Doppler, and spectral Doppler ultrasoundevaluation of the carotid and vertebral arteries in the neck. COMPARISON: FINDINGS: Grayscale ultrasound evaluation of the carotid arteries demonstratesatherosclerotic plaque at the left carotid bulb. Spectral Dopplerevaluation demonstrates normal carotid arterial waveforms with no focallyelevated peak systolic velocity to suggest a hemodynamically significantstenosis. Antegrade flow with normal spectral Doppler tracings in both vertebralarteries. IMPRESSION: No hemodynamically significant stenosis or occlusion. -------- FINAL REPORT -------- Dictated By: Umm Hale Dictated Date: 12/01/2024 23:18 ET Assigned Physician: Umm Hale Reviewed and Electronically Signed By: Umm Hale Signed Date: 12/01/2024 23:19 ET Workstation ID: [id number] Transcribed By: Self Edit Transcribed Date: 12/01/2024 23:18 ET us Martha Maritnez MD CV VASCULAR PROCEDURES Final R esult * PARMJIT SCREENING DIGITAL (12/31/2023 1:02 PM EDT) Anatomical Region Laterality Modality Mammography 12/30/2023 3:29 PM EDT Narrative 12/31/2023 1:02 PM EDT [facility] Diagnostic Imaging Department [address] [place] [address] Patient: ESPINOZA HATCH /Age/Sex: 1950 - 73 - F Unit#: [id number] Location/Status: SPDIMAM/REG CLI Mnemonic/Ordering Site: [facility]MA/[facility] Ordering Physician: BUBBA ALICIA MD [facility] Screening Digital - 12/30/23 - 1631 Report Status:Signed EXAM: [facility] Screening Digital EXAM DATE AND TIME: 12/30/2023 4:32 PM HISTORY: Annual screening COMPARISON: 11/26/2022 and 11/25/2020 TECHNIQUE: Bilateral digital breast tomosynthesis was performed in the CC and MLO projections. Computer aided detection with [employer] 3D 3.1 was employed. TISSUE DENSITY: b. There are scattered areas of fibroglandular density. FINDINGS: No suspicious masses, grouped microcalcifications, or areas of architectural distortion are seen. The skin and vascularity are unremarkable. IMPRESSION: Stable mammographic appearance of the breasts. No evidence of malignancy is seen. A negative mammogram in the presence of a clinically suspicious palpable abnormality does not preclude the possibility of malignancy or alter the indications for biopsy. BI-RADS: Category 1: Negative RECOMMENDATION(S): 1: Routine screening mammogram BILATERAL in 1 year. Dictating Physician: JAKE KIM MD Electronically Signed by: JAKE KIM MD Dic Date/Time: 12/31/23 1301 Sign date/Time: 12/31/23 1302 Procedure Note Jake Kim MD - 04/29/2024 [facility] Diagnostic Imaging Department [address] [place] [id number] Patient: YUSUF HATCHIL /Age/Sex: 1950 - 73 - F Unit#: [id number] Location/Status: SPDIMAM/REG CLI Mnemonic/Ordering Site: [facility] Ordering Physician: BUBBA ALICIA MD [facility] Screening Digital - 12/30/23 - 1631 Report Status:Signed EXAM: [facility] Screening Digital EXAM DATE AND TIME: 12/30/2023 4:32 PM HISTORY: Annual screening COMPARISON: 11/26/2022 and 11/25/2020 TECHNIQUE: Bilateral digital breast tomosynthesis was performed in the CCand MLO projections. Computer aided detection with [employer] 3D 3.1was employed. TISSUE DENSITY: b. There [...] Date/Time: 12/31/23 1301 Sign date/Time: 12/31/23 1302 us Bubba Alicia MD IMG BI PROCEDURES Final Result * PARMJIT DEXA AXIAL SKELETON (11/26/2022 8:13 AM EDT) Anatomical Region Laterality Modality Mammography 11/26/2022 7:13 AM EDT Narrative 11/26/2022 8:13 AM EDT [facility] Diagnostic Imaging Department [address] [place] [id number] Patient: YUSUF HATCHIL /Age/Sex: 1950 - 72 - F Unit#: [id number] Location/Status: [facility] CLI Mnemonic/Ordering Site: [facility]X/[facility] Ordering Physician: BUBBA ALICIA MD Parmjit Dexa Axial Skeleton - 11/26/[address] HISTORY: The patient is a 72-year-old postmenopausal female with clinical concern for metabolic bone disease. FINDINGS: Dual [...] 95% of that of age matched controls. This yields a T-score of -2.1 and a [...] the prior examination of 11/25/2020. There has been an increase of 0.8% in bone mineral density in the right femur and an increase of 3.1% in bone mineral density in the left femur. 2. FRAX analysis yields a 10-year probability of major osteoporotic fracture of 25.1% and a 10-year probability of hip fracture of 7.6%. Code 32142 Dictating Physician: VIKKI NGO MD Electronically Signed by: VIKKI NGO MD Dic Date/Time: 11/26/22810 Sign date/Time: 11/26/22812 Procedure Note Vikki Ngo MD - 08/16/2023 [facility] Diagnostic Imaging Department [address] [place] [address] Patient: ESPINOZA HATCH /Age/Sex: 1950 - 72 - F Unit#: [id number] Location/Status: [facility]/REG CLI [facility] Ordering Physician: BUBBA ALICIA MD Parmjit Dexa Axial Skeleton - 11/26/[address] HISTORY: The [...] density of the femurs bilaterally is 0.748 gm/[id number] is 74% of that of young normals [...] probability of hip fracture of 7.6%. 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
--- OUTSIDE RECORDS SUMMARY | 2025-02-23 07:50 | XMS_ITS ---
Author Name [facility] Organization Unknown Care Team Organization Name Specialty Phone Email Start Date End Da te [facility] NULL Primary Care 05/22/2022 03/02/2024
--- NOTE | 2025-02-23 08:08 | ECG_ITS ---
Test Reason : dizziness Blood Pressure : */* mmHG Vent. Rate : 56 BPM Atrial Rate : 56 BPM P-R Int : 150 ms QRS Dur : 82 ms QT Int : 432 ms P-R-T Axes : 50 30 59 degrees QTcB Int : 416 ms Sinus bradycardia Otherwise normal ECG When compared with ECG of 03-Dec-2024 23:39, No significant change was found Referred By: Freddy Glover Electronically Signed By: Lavell Garcia
[2025-02-23 08:43] LABS: MANUAL DIFF FLAG NO
--- NOTE | 2025-02-23 08:44 | ED.DIZZY ---
HPI - Dizziness General Chief Complaint: Dizziness Stated Complaint: Lightheaded, off balance Time Seen by Provider: 02/23/25 07:55 Source: patient Mode of arrival: ambulatory Limitations: no limitations History of Present Illness HPI Narrative: This is a 74 years old the patient presented to the emergency department complaining of dizziness she described the dizziness as lightheadedness no vertigo. She has been having these symptoms for months. She had an extensive outpatient workup head CT cardiology appointment. Denies any chest pain shortness of breath fever MD elicited complaint: lightheadedness Onset (ago): month(s) (3) Timing: gradual onset Severity: moderate Description: lightheadedness History of similar symptoms: Yes Exacerbating factors: nothing Relieving factors: nothing Associated symptoms: denies other symptoms Related Data Home Medications ?Medication ?Instructions ?Recorded ?Confirmed levothyroxine 88 mcg tablet 1 tab PO DAILY@0630 03/21/21 12/30/24 alendronate 70 mg tablet 70 mg PO TH 12/30/24 12/30/24 losartan 50 mg tablet 50 mg PO DAILY 12/30/24 12/30/24 paroxetine HCl 10 mg tablet 10 mg PO QAM 12/30/24 12/30/24 Previous Rx's ?Medication ?Instructions ?Recorded blood pressure monitor #1 ea 03/21/21 amlodipine 10 mg tablet 5 mg (1/2 x 10 mg) PO QPM #30 tabs 12/30/24 Allergies Allergy/AdvReac Type Severity Reaction Status Date / Time No Known Allergies Allergy Verified 02/23/25 07:31 Review of Systems Constitutional: Constitutional: Reports no additional constitutional complaints ENT: Reports system reviewed and no additional complaints, except as documented Cardiovascular: Cardiovascular: Reports no additional cardiovascular complaints [facility] Past Medical History Attestation statement: The following information was validated with the patient. [facility] Narrative: History of hypertension Medical History Dysarthria Hypertension Hyperparathyroidism Surgical History H/O: hysterectomy Family History Family History Mother No problems noted. Father No problems noted. Social History Social History Alcohol intake: current Alcohol intake frequency: holidays/special occasions only Alcohol type: wine Patient Tobacco Use Status: Never used Tobacco Smoked in Last 30 Days: No Use of substances other than those prescribed or required for medical reasons: No Advance Directives: No Advance Directives Information Provided: No Do you have a plan to hurt others: No Plan service: No Current occupational status: employed Physical Exam Exam: Exam: No acute distress comfortable in the stretcher Vital Signs: Vital Signs: Last Vital Signs Temp 97.8 F 02/23/25 07:29 Pulse 59 02/23/25 11:01 Resp 13 02/23/25 11:01 BP 127/61 02/23/25 11:01 Pulse Ox 95 02/23/25 11:01 O2 Del Method Room Air 02/23/25 11:01 BMI result Body Mass Index 22.7 Const: General: cooperative Nutritional Appearance: well nourished Orientation/consciousness: patient oriented x3 Limitations: no limitations HEENT: Head: Yes normal to inspection Ears: hearing grossly normal bilaterally, external ears normal and TM's normal bilaterally General nose exam: Normal external nose present Face and sinus: Yes normal facial exam Mouth: Normal oral and palatal mucosa present Eyes: EOM: EOMs intact bilaterally Neck: Neck: Yes normal visual inspection Chest: Chest palpation & inspection: normal inspection of the chest Resp: Effort & Inspection: normal respiratory effort Cardio: Jugular venous distension: no JVD Rate: regular rate Rhythm: regular rhythm GI: Inspection: Yes normal to inspection Palpation (GI): Soft to palpation, not firm and nontender Auscultation: normal bowel sounds Skin: General skin exam: no rashes or lesions noted Lesions: no lesions Rashes: no rashes Neuro: General: patient oriented x3 Course Reevaluation(s) Reevaluation #1: On re-examination she is feeling better workup is essentially negative she has a normal labs including high sensitive troponin normal electrocardiogram I discussed the case with the batch tank controller Dr. Garcia it is very reasonable to discharge home and follow-up as outpatient with the cardiology office patient is very comfortable with the plan of care Time: 11:56 Medications Administered Discontinued Medications Generic Name Dose Route Start Last Admin Trade Name Freq PRN Reason Stop Dose Admin Sodium Chloride 1,000 mls @ 999 mls/hr 02/23/25 08:15 02/23/25 09:48 Ns IVCONT 02/23/25 09:15 Infused .Q1H1M DENILSON Infusion Sodium Chloride 1,000 mls @ 999 mls/hr 02/23/25 09:45 02/23/25 11:21 Ns IVCONT 02/23/25 10:45 Infused .Q1H1M DENILSON Infusion Medical Decision Making Medical Decision Making [facility] Narrative: Patient is here with lightheadedness we will check blood work electrocardiogram I do not think we need to do any imaging of the brain on examination every exam is normal she has no cerebellar sign ([id number] normal no nystagmus normal gait) 11:56 the patient is doing much better labs normal EKG normal we will proceed with the charge she will follow-up with cardiology I wonder if she needs to cut down in the blood pressure medication Differential Diagnosis Differential Diagnoses: The differential diagnosis associated with the presentation includes Dehydration/anemia/arrhythmia Admission/Observation Consideration of admission/observation: Escalation of care including admission/observation considered Consult Healthcare Provider Management of the patient was discussed with: Buckle Attaching Machine Operator Dr Garcia Lab Data [facility] Lab Attestation statement: I reviewed the patient's lab results. 02/23/25 08:32 02/23/25 08:32 Labs: Lab Results 02/23/25 Range/Units 08:32 WBC 3.8 L (4.8-10.8) X10*3/uL RBC 3.69 L (4.20-5.50) X10*6/uL Hgb 11.6 L (12.0-16.0) g/dl Hct 33.2 L (37.0-47.0) % MCV 90.0 (80.0-98.0) fL MCH 31.4 (27.0-33.0) pg MCHC 34.9 (31.0-35.0) g/dl RDW 12.1 (11.0-16.0) % Plt Count 175 (160-400) X10*3/uL MPV 10.1 (9.4-12.3) fL Immature Gran % (Auto) 0.3 (0.0-0.4) % Neut % (Auto) 55.1 (45-73) % Lymph % (Auto) 31.5 (20-40) % [place] % (Auto) 9.4 (2-11) % Eos % (Auto) 2.9 (0-4) % Baso % (Auto) 0.8 (0-2) % Lymph # (Auto) 1.2 (1.2-4.9) X10*3/uL [place] # (Auto) 0.4 (0.1-1.2) X10*3/uL Eos # (Auto) 0.1 (0.0-0.4) X10*3/uL Baso # (Auto) 0.0 (0.0-0.2) X10*3/uL Abs Immat Gran (auto) 0.01 (0.00-0.03) X10*3/uL Absolute Neuts (auto) 2.1 (2.0-8.3) x10*3/uL Absolute Nucleated RBC 0.000 (0.0-0.012) X10*3/uL Nucleated RBC % (auto) 0.0 (0.0-0.2) /100WBC Sodium 144 (135-145) mmol/L Potassium 3.9 (3.3-5.1) mmol/L Chloride 109 H (96-108) mmol/L Carbon Dioxide 26 (22-29) mmol/L Anion Gap 13 (12-20) BUN 12 (9-16) mg/dL Creatinine 0.64 (0.5-1.4) mg/dL Estim Creat Clear Calc 71.1 Estimated GFR > 60 Random Glucose 76 (60-115) mg/dL Calcium 9.1 (8.4-10.2) mg/dL Total Bilirubin 0.4 (0.0-1.0) mg/dL AST 23 (5-31) U/L ALT 18 (0-31) U/L Alkaline Phosphatase 66 (39-117) U/L Troponin I High Sens < 2.7 (<3.5-17.0) ng/L Total Protein 6.3 L (6.5-8.0) g/dL Albumin 4.3 (3.5-5.0) g/dL Independent Interpretation I performed an independent interpretation of an: EKG Interpretation: Normal sinus rhythm rate [address]-T changes this is a normal electrocardiogram Radiology Impression Discussion of test interpretation with radiology: I have reviewed the radiologist's reading. External Record Review External record reviewed: Office record Chronic Conditions Patient?s care impacted by: Hypertension Discharge Plan Discharge Clinical Impression: Episodic lightheadedness Patient Disposition: Home, Self-Care Instructions: Lightheadedness (ED) Additional Instructions: Drink plenty of fluid as we discussed follow-up with your batch tank controller call and make an appointment return if worse Prescriptions: No Action levothyroxine 88 mcg tablet 1 tab PO DAILY@0630 (DME) blood pressure monitor Kit See Rx Instructions .Route Qty: 1 0RF Rx Instructions: As directed alendronate 70 mg tablet 70 mg PO TH losartan 50 mg tablet 50 mg PO DAILY paroxetine HCl 10 mg tablet 10 mg PO QAM amlodipine 10 mg tablet 5 mg PO QPM Qty: 30 0RF Referrals: Omid Sanches MD [Physician, Cardiology] - 02/26/25 Print Language: Greenlandic
[2025-02-23 08:51] LABS: Hematocrit 33.2 % (37.0-47.0); Hemoglobin 11.6 g/dl (12.0-16.0); Imm Gran Abs Auto 0.01 X10*3/uL (0.00-0.03); Imm Gran Pct Auto 0.3 % (0.0-0.4); Lymphocytes Absolute Auto 1.2 X10*3/uL (1.2-4.9); Mean Corpuscular HGB Conc 34.9 g/dl (31.0-35.0); Mean Corpuscular Hemoglobin 31.4 pg (27.0-33.0); Mean Corpuscular Volume 90.0 fL (80.0-98.0); NRBC Abs Auto 0.000 X10*3/uL (0.0-0.012); NRBC Pct Auto 0.0 /100WBC (0.0-0.2); Platelet Count 175 X10*3/uL (160-400); Red Blood Count 3.69 X10*6/uL (4.20-5.50); White Blood Count 3.8 X10*3/uL (4.8-10.8)
[2025-02-23 08:58] LABS: Alanine Aminotransferase 18 U/L (0-31); Albumin Level 4.3 g/dL (3.5-5.0); Alkaline Phosphatase 66 U/L (39-117); Anion Gap 13 (12-20); Aspartate Amino Transferase 23 U/L (5-31); Blood Urea Nitrogen 12 mg/dL (9-16); Calcium 9.1 mg/dL (8.4-10.2); Carbon Dioxide 26 mmol/L (22-29); Chloride 109 mmol/L (96-108); Creatinine Clr Calc Pharmacy 71.1; Estimated Glomerular Filt Rate > 60; Potassium 3.9 mmol/L (3.3-5.1); Sodium 144 mmol/L (135-145); Total Protein 6.3 g/dL (6.5-8.0)
[2025-02-23 09:10] LABS: Troponin-I High Sensitivity < 2.7 ng/L (<3.5-17.0)
[2025-02-23 09:40] VITALS: BP 153/70; PULSE 66
[2025-02-23 09:41] VITALS: BP 155/72; BP 165/77; PULSE 75; PULSE 83
--- NOTE | 2025-02-23 09:45 | PC.NURSE ---
Pt ambulated to/rom BR and felt very lightheaded on return to room; pt's HR 130 ST with BP 177/82; pt pale, shaky saying something's wrong ; pt placed in supine position and HR went down to 70's almost immediately; BP 153/70 and pallor improved; pt denies CP/SOB/nausea; states dizziness has not gone away since yesterday; ortho vs show increase in HR/BP/dizziness; repeat EKG obtained; MD made aware; 2nd ltr of NS to be infused per MD and cardiology consult pending
[2025-02-23 10:13] VITALS: BP 142/57; PULSE 72; RESP 16; O2SAT 98
[2025-02-23 11:01] VITALS: BP 127/61; PULSE 59; RESP 13; O2SAT 95
[2025-02-23 12:06] VITALS: BP 122/69; PULSE 71; RESP 16; TEMP 36.3; O2SAT 98
== END 2025-02-23 12:14 | disposition home or self-care (01) ==
PROVIDERS: Emergency Provider Emergency Medicine; PCP Internal Medicine
DX: R42 Dizziness and giddiness (principal)
CPT/HCPCS: 36415; 80053; 84484; 85025; 93005; 96360; 96361; 99284; 99285

== ENCOUNTER → 2025-02-23 08:08 | Outpatient (BNV) | payer OTHER, SELFPAY | PROVIDERS: Emergency Provider Emergency Medicine; PCP Internal Medicine; Visit Provider Internal Medicine Cardiovascular Disease | DX: R00.1 Bradycardia, unspecified (principal) | CPT/HCPCS: 93010 ==

== ENCOUNTER → 2025-03-04 13:47 | Outpatient (REF) | payer OTHER, SELFPAY ==
--- NOTE | 2025-03-04 13:50 | HM_ITS ---
* Total procedure length 30 days. Wear time 25 days. * Underlying rhythm is sinus with an average rate of 66/Min. * Rare supraventricular ectopy. Short atrial runs suggestive of atrial tachycardia. * Rare ventricular ectopy. * Five pauses noted, longest 4.5 seconds at 04:16 and 523. * Various symptoms in patient diary including lightheadedness, numbness, nausea, anxiety, racing associated with mild sinus bradycardia, sinus rhythm, supraventricular ectopy, sinus tachycardia. * Lightheadedness/nausea at 23:08 associated with junctional escape rhythm at 26/Min. MTDD
--- OUTSIDE RECORDS SUMMARY | 2025-03-04 13:56 | XMS_ITS | Clinical Summary ---
Author Organization [address] Address [address] [place] [address] Phone Care Team Providers Care Clarity Developer Name Role Phone Martha Martinez MD Primary Care Provider [phone] Allergies No known active allergies Medications nystatin [...] each day. 90 each 1 5 Active hydroCHLOROthi azide 12.5 mg tablet Take 1 tablet (12.5 mg total) by mouth 1 (one) time each day. 90 each 2 5 Active amLODIPine (NORVASC) 5 mg tablet Take 1 tablet (5 mg total) by mouth 1 (one) time each day. 90 each 5 5 025 Discontinu ed(Reorder ) losartan (Cozaar) 50 mg tablet Take 1 tablet (50 mg total) by mouth 1 (one) time each day. 90 each 2 5 Discontinu ed(Reorder ) ondansetron (ZOFRAN) 4 mg [...] for 3 days. 18 tablet 5 025 losartan (Cozaar) 50 mg tablet Take 1 tablet (50 mg total) by mouth 2 (two) times a day. 180 each 1 5 Discontinu ed(Ineffec tive) hydroCHLOROthi azide 12.5 mg tablet Take 1 tablet (12.5 mg total) by mouth 1 (one) time each day. 90 each 2 5 Discontinu ed(Reorder ) Encounters Date Type Department Care Team Description 02/15/2025 Telephone Internal Medicine - [place] 175 [facility] [address] [place] [address] Martha Martinez MD 02/11/2025 1:47 PM EDT - 02/11/2025 11:59 PM EDT Hospital Encounter [facility] CT Scan [address] [place] [address] Weight loss; Appetite loss; Nausea; Dizziness Discharge Disposition: Home or Self Care 01/28/2025 Telephone Internal Medicine - [place] 175 [facility] [address] [place] [address] Martha Martinez MD [place] - Referral 01/27/2025 Telephone Internal Medicine [facility] 175 [facility] [address] [place] [address] Elida Green [place] 01/26/2025 Telephone Internal Medicine [facility] [address] [address] Martha Martinez MD 01/11/2025 Telephone Internal Medicine [facility] [address] [address] Elida Green [place] Lab Results 12/18/2024 11:00 AM EDT Ancillary Procedure [facility] - [address] [place] [address] Cardiac murmur; Lightheadedness; TIA (transient ischemic attack) 12/16/2024 Telephone Internal Medicine [facility] [address] [address] Tres Morse [place] Results 12/10/2024 Telephone Internal [address] [address] Martha Martinez MD 12/03/2024 4:46 PM EDT - 12/03/2024 11:59 PM EDT Hospital Encounter Radiology Department [address] [address] Dizziness Discharge Disposition: Home or Self Care 12/03/2024 10:30 AM EDT Office Visit Internal Medicine [address] [address] Martha Martinez MD Dizziness (Primary Dx); Hypertension, unspecified type; Facial numbness 12/03/2024 Telephone Internal Medicine [facility] [address] [address] Martha Martinez MD ECHO (ECHO ORDER) from Last 3 Months Social History Tobacco [...] 2) 1999 Cholesterol Screening (Lipid Panel) 08/20/2019 Falls Risk Assessment 08/20/2019 Hepatitis C [...] CONTRAST STAT 12/03/2024 5:46 PM EDT Dizziness PARMJIT SCREENING DIGITAL Routine 12/31/2023 1:02 PM EDT Encounter for screening mammogram for malignant neoplasm of breast [facility] DEXA AXIAL SKELETON Routine 11/26/2022 [...] Signed Date: 02/17/2025 08:38 ET Workstation ID: [id number] Transcribed By: Self Edit Transcribed Date: 02/17/2025 [...] Signed Date: 02/17/2025 08:38 ET Workstation ID: [id number] Transcribed By: Self Edit Transcribed Date: 02/17/2025 08:22 ET Martha Martinez MD IMG CT PROCEDURES Final Result * CBC auto differential (01/26/2025 3:34 PM EDT) WBC 6.1 4.8 - 10.8 K/mcL LAB HEMETOLOGY METHOD 01/26/2025 6:37 PM [...] K/mcL LAB HEMETOLOGY METHOD 01/26/2025 6:37 PM [facility] MPV 10.5 7.0 - 11.0 [place] LAB HEMETOLOGY METHOD 01/26/2025 6:37 PM EDT [facility] NRBC 0.0 <1.0 % LAB HEMETOLOGY METHOD 01/26/2025 6:37 PM T [facility] NRBC Absolute 0.00 <0.10 K/[facility] LAB HEMETOLOGY METHOD 01/26/2025 6:37 PM [facility] Neutrophils Relative 60.6 % LAB HEMETOLOGY [facility] Lymphocytes Relative 29.5 % LAB HEMETOLOGY METHOD 01/26/2025 6:37 PM [facility] Monocytes Relative 7.7 % LAB HEMETOLOGY METHOD 01/26/2025 6:37 PM [facility] Eosinophils Relative 1.1 % LAB HEMETOLOGY METHOD 01/26/2025 6:37 PM [facility] Basophils Relative 0.8 % LAB HEMETOLOGY METHOD [facility]/26[facility]2025 6[facility] Immature Granulocytes Relative 0.3 % LAB HEMETOLOGY METHOD 01/26/2025 6:37 [facility] Neutrophils Absolute 3.71 1.50 - 7.00 K/mcL LAB HEMETOLOGY METHOD 01/26/2025 6:37 [facility] Lymphocytes Absolute 1.81 1.00 - 5.00 K/mcL LAB HEMETOLOGY METHOD 01/26/2025 6:37 PM EDT [facility] Monocytes Absolute 0.47 0.20 - 1.00 K/mcL LAB HEMETOLOGY METHOD 01/26/2025 6:37 PM EDT [facility] Eosinophils Absolute 0.07 0.00 - 0.50 K/mcL LAB HEMETOLOGY METHOD 01/26/2025 6:37 PM EDT [facility] Basophils Absolute 0.05 0.00 - 0.20 K/mcL LAB HEMETOLOGY METHOD 01/26/2025 6:37 PM EDT [facility] Immature Granulocytes Absolute 0.02 0.00 - 0.03 K/mcL LAB HEMETOLOGY METHOD 01/26/2025 6:37 PM EDT [facility] Blood Venous blood specimen / Unknown Venipuncture / Unknown 01/26/2025 3:34 PM EDT 01/26/2025 3:34 PM EDT us Martha Martinez MD LAB BLOOD ORDERABLES Final Res ult [facility] [address] [place] [address], * Basic metabolic panel (01/26/2025 3:34 PM EDT) Sodium 137 133 - 145 mmol/L LAB CHEMISTRY METHOD 01/26/2025 7:21 PM [facility] Potassium 4.7 3.5 - 5.5 mmol/L LAB CHEMISTRY METHOD 01/26/2025 7:21 PM [facility] Chloride 103 96 - 110 mmol/L LAB CHEMISTRY METHOD 01/26[facility]2025 7:[facility] CO2 28 21 - 32 mmol/L LAB CHEMISTRY METHOD 01/26/2025 7:21 PM EDT [facility] Anion Gap 6 3 - 11 LAB CHEMISTRY METHOD 01/26/2025 7:21 PM EDT [facility] Glucose 85 70 - 100 mg/dL LAB CHEMISTRY METHOD 01/26/2025 7:21 PM EDT [facility] BUN 12 5 - 25 mg/dL LAB CHEMISTRY METHOD 01/26/2025 7:21 PM EDT [facility] Creatinine 0.65 0.50 - 1.10 mg/dL LAB CHEMISTRY METHOD 01/26/2025 7:21 PM EDT [facility] eGFR 92 >=60 mL/min/1. 73m2 LAB CHEMISTRY METHOD 01/26/2025 7:21 PM EDT [facility] Comment:Calculation based on the Chronic Kidney Disease Epidemiology Collaboration (CKD-EPI) equation refit without adjustment for race. BUN/Creatinine Ratio 18.5 LAB CHEMISTRY METHOD 01/26/2025 7:21 PM EDT [facility] Calcium 9.5 8.5 - 10.5 mg/dL LAB CHEMISTRY METHOD 01/26/2025 7:21 PM EDT [facility] Blood Venous blood specimen / Unknown Venipuncture / Unknown 01/26/2025 3:34 PM EDT 01/26/2025 3:34 PM EDT us Martha Martinez MD LAB BLOOD ORDERABLES Final Res ult [facility] [address] [place] [address], * TRANSTHORACIC ECHOCARDIOGRAM (TTE) COMPLETE (12/18/2024 11:49 AM EDT) Left [facility] [place] 5.4 cm CV PACS Left [facility] [place] 6.3 cm CV PACS [place] Area Sys [...] Signed Date: 12/04/2024 10:39 ET Workstation ID: [id number] Transcribed By: Self Edit Transcribed Date: 12/04/2024 [...] Signed Date: 12/04/2024 10:39 ET Workstation ID: [id number] Transcribed By: Self Edit Transcribed Date: 12/04/2024 10:34 ET us Martha FAY MRI PROCEDURES Final Resul t * [facility] SCREENING DIGITAL (12/31/2023 1:02 PM EDT) Anatomical Region Laterality Modality Mammography 12/30/2023 3:29 PM EDT Narrative 12/31/2023 1:02 PM EDT [facility] Diagnostic Imaging Department [address] [place], [place] [id number] Patient: SAFIAESPINOZA /Age/Sex: 1950 - 73 - F Unit#: [id number] [facility]ing Site[facility] Ordering Physician: BUBBA ALICIA MD Parmjit Screening Digital - 12/30/23 - 1631 Report Status:Signed EXAM: [facility] Screening Digital EXAM DATE AND TIME: 12/30/2023 4:32 PM HISTORY: Annual screening COMPARISON: 11/26/2022 and 11/25/2020 TECHNIQUE: Bilateral digital breast tomosynthesis was performed in the CC and MLO projections. 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 TISSUE DENSITY: b. [...] Procedure Note Jake Kim MD - 04/29/2024 [facility] Diagnostic Imaging Department [address] [place] [address] Patient: YUSUF HATCHIL /Age/Sex: 1950 - 73 - F Unit#: [id number] Location/Status: [facility] CLI Mnemonic/Ordering Site: [facility] Ordering Physician: BUBBA ALICIA MD [facility] Screening Digital - 12/30/23 - 1631 Report Status:Signed EXAM: [facility] Screening Digital EXAM DATE AND TIME: 12/30/2023 4:32 PM HISTORY: Annual screening COMPARISON: 11/26/2022 and 11/25/2020 TECHNIQUE: Bilateral digital breast tomosynthesis was performed in the CCand MLO projections. Computer aided detection with [employer] 3D 3.1was employed. TISSUE DENSITY: b. There [...] Date/Time: 12/31/23 1301 Sign date/Time: 12/31/23 1302 Bubba Alicia MD IMG BI PROCEDURES Final Result * PARMJIT DEXA AXIAL SKELETON (11/26/2022 8:13 AM EDT) Anatomical Region Laterality Modality Mammography 11/26/2022 7:13 AM EDT Narrative 11/26/2022 8:13 AM EDT [facility] Diagnostic Imaging Department [address] [place] [address] Patient: HATCHESPINOZA /Age/Sex: 1950 - 72 - F Unit#: [id number] Location/Status: [facility] CLI [facility] Ordering Physician: BUBBA ALICIA MD Parmjit Dexa [...] probability of hip fracture of 7.6%. Code 25095 Dictating Physician: VIKKI NGO MD Electronically Signed by: VIKKI NGO MD Dic Date/Time: 11/26/22810 Sign date/Time: 11/26/22812 Procedure Note Vikki Ngo MD - 08/16/2023 [facility] Diagnostic Imaging Department [address] [place] [address] Patient: ESPINOZA HATCH /Age/Sex: 1950 - 72 - F Unit#: [id number] Location/Status: [facility] CLI Mnemonic/Ordering Site: [facility] Ordering Physician: BUBBA [...] density of the femurs bilaterally is 0.748 gm/[id number] is 74% of that of young normals [...] probability of hip fracture of 7.6%. Code 44422 Dictating Physician: VIKKI NGO MD Electronically Signed by: VIKKI NGO MD Dic Date/Time: 11/26/22810 Sign date/Time: 11/26/22812 Bubba Alicia MD IMG BI PROCEDURES Final Result from Last 3 Months or Most Recently Relevant to Health Maintenance Insurance MEDICARE [employer] Care Teams Clarity Developer Relationship Specialty Start Date End Date Martha Martinez MD [address] [address] PCP - General Internal Medicine 12/25/24
== END ==
LOC: HO.CARD 13:47
PROVIDERS: PCP Internal Medicine; Visit Provider Internal Medicine Cardiovascular Disease
DX: R42 Dizziness and giddiness (principal); R09.89 Other specified symptoms and signs involving the circulatory and respiratory systems
CPT/HCPCS: 93270

== ENCOUNTER → 2025-03-04 13:50 | Outpatient (BNV) | payer OTHER, SELFPAY | PROVIDERS: PCP Internal Medicine; Visit Provider Internal Medicine | DX: I47.19 Other supraventricular tachycardia (principal) | CPT/HCPCS: 93272 ==

== ENCOUNTER 2025-03-17 13:54 | Outpatient (AMB) | payer OTHER, SELFPAY ==
[2025-03-17 13:57] VITALS: BP 124/60; PULSE 76; BMI 23.2
--- NOTE | 2025-03-17 13:57 | MHC.OFFVIS ---
Vital Signs 03/17/25 13:57 Height 5 ft 6 in Weight 143 lb 11.862 oz BMI 23.2 BP 124/60 Blood Pressure Location Lt brachial Position Sitting Pulse 76 Pulse Source Pulse Oximeter Intake Visit Re[place] [facility] [place]/ lightheadedness Accompanied by: Self / Same As Patient Allergies No Known Allergies Allergy (Verified 02/23/25 07:31) HPI Comments Details: This is a 75-year-old female patient coming in for a hospital discharge follow-up visit. Patient with a history of hypertension who was previously seen in the office for lightheadedness and was noted to have orthostatic hypotension for which patient's medications were adjusted and amlodipine was reduced to 5 mg daily. She was again seen in the emergency room for lightheadedness and has undergone a BPPV test which was negative for vertigo. Patient was previously ordered to undergo a Holter study with a tilt-table test. Patient states that her tilt-table is not complete yet and is planning to call [place] to schedule 1. Patient did complete her 3 day Holter study that showed mild sinus tachycardia with rare ectopies. Patient had requested a 30 day monitor and is currently wearing one. Patient also has an upcoming renal ultrasound in April to rule out stenosis. Today, patient continues to report intermittent dizziness mostly with changing positions but also seems to be reproducible with jaw movement, yawning, and chewing. Patient does has been upcoming appointment with ENT as well. Patient is otherwise denying any associated symptoms of exertional chest pain, shortness of breath, palpitations, orthopnea, PND, leg edema, presyncope, or syncope. PFSH Medical History Dysarthria Hypertension Hyperparathyroidism Surgical History H/O: hysterectomy Family History Mother No problems noted. Father No problems noted. Social History Alcohol intake: current Alcohol intake frequency: holidays/special occasions only Alcohol type: wine Patient Tobacco Use Status: Never used Tobacco service: No Current occupational status: employed Review of Systems Const Denies daytime sleepiness, Denies difficulty sleeping, Denies snoring, Denies stops breathing during sleep and Denies weakness Card Denies chest pain, Denies rapid heart rate, Denies irregular heart rhythm, Denies claudication, Denies leg edema, Reports lightheadedness, Reports palpitations, Denies dyspnea, Denies dyspnea on exertion, Denies orthopnea, Denies paroxysmal nocturnal dyspnea and Denies slow heart rate Resp Denies cough, Denies dyspnea, Denies dyspnea on exertion and Denies snoring GI Reports no additional complaints, Denies hematochezia, Denies change in stool character and Denies dyspepsia Musc Denies abnormal gait, Denies muscle weakness and Denies numbness Neuro Denies abnormal gait, Denies numbness and Denies weakness Endo Reports palpitations Physical Exam Vital Signs: Last Vital Signs Pulse 76 03/17/25 13:57 BP 124/60 03/17/25 13:57 BMI result Body Mass Index 23.2 Const General: cooperative, healthy appearing, comfortable and no acute distress Orientation/consciousness: patient oriented x3 HEENT Head: Yes normal to inspection Neck Neck: Yes normal visual inspection, Yes trachea midline and Yes supple Chest Chest palpation & inspection: normal inspection of the chest Resp Effort & Inspection: normal respiratory effort Auscultation: clear to auscultation bilaterally, no crackles, no rales, no rhonchi and no wheezes Cardio Jugular venous distension: no JVD Palpation: normal PMI Rate: regular rate Rhythm: regular rhythm Heart sounds: S1 normal heart sound present, S2 normal heart sound present, no click, no gallops, no murmurs and no rubs Peripheral pulses: Peripheral pulses 2+ throughout GI Inspection: Yes normal to inspection Palpation (GI): Soft to palpation Auscultation: normal bowel sounds Skin General skin exam: no rashes or lesions noted Neuro General: patient oriented x3 Extrem General: Yes normal to inspection, No no pedal edema and No calf tenderness Psych Appearance: grossly normal Mental Status: mental status grossly normal Speech and movement: Normal speech and movement present Assessment & Plan Assessment & Plan (1) Labile blood pressure: Code(s): R09.89 - Other specified symptoms and signs involving the circulatory and respiratory systems Category: Medical Plan: 01/12/2025 -patient underwent a 3 day Holter study that showed underlying sinus rhythm with some rare supraventricular and ventricular ectopies with mild sinus tachycardia. Patient is currently wearing a 30 day monitor for further evaluation of any potential arrhythmias. Patient will call [place] to schedule a tilt-table test as this has not been completed yet. Blood pressure today is stable. Patient is only on amlodipine 5 mg and hydrochlorothiazide 12.5 mg daily. Continue current regimen. Advised monitoring blood pressures at home and maintaining a log of it. Given her orthostatics, blood pressure goal less than 140/80. Patient does note that she has increased her water intake to 64 oz a day. Given her ongoing symptoms of dizziness, emphasized the need to complete all her for testings before her next visit. Patient verbalizes understanding. Patient is also getting Lyme titers with PCP to rule out Lyme disease. Also given that her symptoms are reproducible with certain movements of her jaw, emphasized to follow up with the ENT to rule out TMJ. Advised heart healthy diet, regular exercise, med compliance, adequate hydration, avoiding caffeinated beverages, and stress medication strategies. Follow-up after completion of test. In the interim, patient will call the office with any concerns or change in symptoms. This note was generated using voice recognition software. While every effort has been made to ensure accuracy and proper dairy nutrition specialist, there may be occasional errors that could affect the content or meaning of the described symptoms. Coding Level of Care Code Est Pt Level 4 (66443) Complex EM visit Add On G2211 Diagnoses Labile blood pressure R09.89 Time Spent (min) 31 Comment Time spent in reviewing the chart, test results, assessment, counseling and documentation.
--- OUTSIDE RECORDS SUMMARY | 2025-03-17 16:05 | XMS_ITS | Clinical Summary ---
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 16 g 5 5 01/26/20 26 Active fluticasone propionate (FLONASE) 50 mcg/actuation nasal spray Administer 2 sprays into each nostril 1 (one) time each day. Shake gently. Before first use, prime pump. After use, clean tip and replace cap. 16 g 5 5 01/27/20 26 Active amLODIPine (NORVASC) 5 mg tablet Take 1.5 tablets (7.5 mg total) by mouth 1 (one) time each day. 90 each 1 5 Active hydroCHLOROthi azide 12.5 mg tablet Take 1 tablet (12.5 mg total) by mouth 1 (one) time each day. 90 each 2 5 Active losartan (Cozaar) 50 mg tablet Take 1 tablet (50 mg total) by mouth 2 (two) times a day. 180 each 1 5 02/27/20 25 Discontin ued(Ineff ective) hydroCHLOROthi azide 12.5 mg tablet Take 1 tablet (12.5 mg total) by mouth 1 (one) time each day. 90 each 2 5 02/27/20 25 Discontin ued(Reord er) Encounters Date Type Department Care Team Description 02/15/2025 Telephone Internal Medicine [facility] [address] [phone] Martha Martinez MD 02/11/2025 1:47 PM EDT - 02/11/2025 11:59 PM EDT Hospital Encounter [facility] CT Scan [address] [place] [address] Weight loss; Appetite loss; Nausea; Dizziness Discharge Disposition: Home or Self Care 01/28/2025 Telephone Internal Medicine [facility] [address] [address] Martha Martinez MD 01/27/2025 Telephone Internal Medicine [facility] [address] [address] Elida Green [place] 01/26/2025 [place] Internal Medicine [facility] [address] [address] Martha Martinez MD 01/11/2025 Telephone Internal Medicine [facility] [address] [phone] Elida Green [place] 12/18/2024 11:00 AM EDT Ancillary Procedure [facility] [address] [facility] [address] [place] [address] Cardiac murmur; Lightheadedness; TIA (transient ischemic attack) 12/16/2024 Telephone Internal Medicine [facility] 175 [facility] [address] [place] [address] Tres Morse MA from Last 3 Months Social History Tobacco [...] 75+ series) 02/29/2024 COVID-19 Vaccine (3 - season) 2024 11/15/2020, 10/25/2020 Depression Screening 07/15/2024 [...] Cardiac murmur Lightheadedness TIA (transient ischemic attack) [facility] SCREENING DIGITAL Routine 12/31/2023 1:02 PM EDT Encounter for screening mammogram for malignant neoplasm of breast [facility] DEXA AXIAL SKELETON Routine 11/26/2022 8:13 [...] Signed Date: 02/17/2025 08:38 ET Workstation ID: [id number] Transcribed By: Self Edit Transcribed Date: 02/17/2025 [...] Signed Date: 02/17/2025 08:38 ET Workstation ID: [id number] Transcribed By: Self Edit Transcribed Date: 02/17/2025 08:22 ET Martha Martinez MD IM CT PROCEDURES Final Result * CBC auto differential (01/26/2025 3:34 PM EDT) WBC 6.1 4.8 - 10.8 K/mcL LAB HEMETOLOGY METHOD 01/26/2025 6:37 PM EDT [facility] RBC 4.20 3.80 - 4.80 M/mcL LAB HEMETOLOGY METHOD 01/26/2025 6:37 PM EDT [facility] Hemoglobin 12.8 11.5 - 16.0 g/dL LAB HEMETOLOGY METHOD 01/26/2025 6:37 PM EDT [facility] Hematocrit 39.2 35.0 - 47.0 % LAB HEMETOLOGY METHOD 01/26/2025 6:37 PM EDT [facility] MCV 93.3 79.0 - 98.0 FL LAB HEMETOLOGY METHOD 01/26/2025 6:37 PM EDT [facility] MCH 30.5 27.0 - 32.0 pcg LAB HEMETOLOGY [facility] MCHC 32.7 32.0 - 37.0 g/dL LAB HEMETOLOGY METHOD 01/26/2025 6[facility] RDW 12.2 11.0 - 15.0 % LAB HEMETOLOGY METHOD 01/26/2025 6:37 PM EDT [facility] Platelets 296 130 - 400 K/mcL LAB HEMETOLOGY METHOD [facility]/26[facility]2025 6[facility] MPV 10.5 7.0 - 11.0 FL LAB HEMETOLOGY METHOD 01/26/2025 6:37 PM EDT [facility] NRBC 0.0 <1.0 % LAB HEMETOLOGY METHOD 01/26/2025 6:37 PM EDT [facility] NRBC Absolute 0.00 <0.10 K/mcL LAB HEMETOLOGY METHOD 01/26[facility]2025 6[facility] Neutrophils Relative 60.6 % LAB HEMETOLOGY METHOD 01/26/2025 6[facility] Lymphocytes Relative 29.5 % LAB HEMETOLOGY METHOD 01/26/2025 6:37 PM EDT [facility] Monocytes Relative 7.7 % LAB HEMETOLOGY METHOD [facility]/26[facility]2025 6[facility] Eosinophils Relative 1.1 % LAB HEMETOLOGY METHOD 01/26/2025 6:37 PM [facility] Basophils Relative 0.8 % LAB HEMETOLOGY METHOD 01/26/2025 6:37 [facility] Immature Granulocytes Relative 0.3 % LAB HEMETOLOGY METHOD 01/26/2025 6:37 PM EDT [facility] Neutrophils Absolute 3.71 1.50 - 7.00 K/mcL LAB HEMETOLOGY METHOD 01/26/2025 6:37 [facility] Lymphocytes Absolute 1.81 1.00 - 5.00 K/mcL LAB HEMETOLOGY METHOD 01/26/2025 6:37 [facility] Monocytes Absolute 0.47 0.20 - 1.00 K/mcL LAB HEMETOLOGY METHOD 01/26/2025 6:37 PM EDT [facility] Eosinophils Absolute 0.07 0.00 - 0.50 K/[facility] LAB HEMETOLOGY METHOD 01/26/2025 6:37 PM EDT [facility] Basophils Absolute 0.05 0.00 - 0.20 K/mcL LAB HEMETOLOGY METHOD 01/26/2025 6:37 PM EDT [facility] Immature Granulocytes Absolute 0.02 0.00 - 0.03 K/mcL LAB HEMETOLOGY METHOD 01/26/2025 6:37 PM EDT [facility] Blood Venous blood specimen / Unknown Venipuncture / Unknown 01/26/2025 3:34 PM EDT 01/26/2025 3:34 PM EDT Martha Martinez MD LAB BLOOD ORDERABLES Final Res ult [facility] [address] [place] [address], [place] [phone] * Basic metabolic panel (01/26/2025 3:34 PM EDT) Sodium 137 133 - 145 mmol/L LAB CHEMISTRY METHOD 01/26/2025 7:21 PM [facility] Potassium 4.7 3.5 - 5.5 mmol/L LAB CHEMISTRY METHOD 01/26/2025 7:21 PM [facility] Chloride 103 96 - 110 mmol/L LAB CHEMISTRY METHOD 01/26/2025 7:21 PM [facility] CO2 28 21 - 32 mmol/L LAB CHEMISTRY METHOD 01/26/2025 7:21 PM [facility] Anion Gap 6 3 - 11 LAB CHEMISTRY METHOD 01/26/2025 7:21 PM [facility] Glucose 85 70 - 100 mg/dL LAB CHEMISTRY METHOD 01/26/2025 7:21 PM EDT [facility] BUN 12 5 - 25 mg/dL LAB CHEMISTRY METHOD 01/26/2025 7:21 PM EDT [facility] Creatinine 0.65 0.50 - 1.10 mg/dL LAB CHEMISTRY METHOD 01/26/2025 7:21 PM EDT [facility] eGFR 92 >=60 mL/min/1. 73m2 LAB CHEMISTRY METHOD 01/26/2025 7:21 PM EDT [facility] Comment:Calculation based on the Chronic Kidney Disease Epidemiology Collaboration (CKD-EPI) equation refit without adjustment for race. BUN/Creatinine Ratio 18.5 LAB CHEMISTRY METHOD 01/26/2025 7:21 PM EDT [facility] Calcium 9.5 8.5 - 10.5 mg/dL LAB CHEMISTRY METHOD 01/26/2025 7:21 PM EDT [facility] Blood Venous blood specimen / Unknown Venipuncture / Unknown 01/26/2025 3:34 PM EDT 01/26/2025 3:34 PM EDT us Martha Martinez MD LAB BLOOD ORDERABLES Final Res ult [facility] [address] [place] [address], [place] [phone] * TRANSTHORACIC ECHOCARDIOGRAM (TTE) COMPLETE (12/18/2024 11:49 AM EDT) Left Atrium Minor [place] 5.4 cm CV PACS Left Atrium Major [place] 6.3 cm CV PACS [place] Area Sys [...] CV ECHO PROCEDURES Final Resul t * PARMJIT SCREENING DIGITAL (12/31/2023 1:02 PM EDT) Anatomical Region Laterality Modality Mammography 12/30/2023 3:29 PM EDT Narrative 12/31/2023 1:[address] [facility] Diagnostic Imaging Department [address] [place] [address] Patient: HATCHESPINOZA./Age/Sex: 1950 - 73 - F Unit#: [id number] Location/Status: SPDIMAM/REG CLI Mnemonic/Ordering Site: [facility] Ordering Physician: NEWTON ALICIA MD [facility] Screening Digital - 12/30/23 - 1631 Report Status:Signed EXAM: [facility] Screening Digital EXAM DATE AND TIME: 12/30/2023 4:32 PM HISTORY: Annual screening COMPARISON: 11/26/2022 and 11/25/2020 TECHNIQUE: Bilateral digital breast tomosynthesis was performed in the CC and MLO projections. Computer aided detection with Qianmi 3D 3.1 was employed. TISSUE DENSITY: b. [...] Physician: JAKE KIM MD Electronically Signed by: JAEK KIM MD Dic Date/Time: 12/31/23 1301 Sign date/Time: 12/31/23 1302 Procedure Note Jake Kim MD - 04/29/[address] [facility] Diagnostic Imaging Department [address] [place] [address] Patient: ESPINOZA HATCH/Age/Sex: 1950 - 73 - F Unit#: [id number] Location/Status: SPDIMAM/REG CLI Mnemonic/Ordering Site: [facility] Ordering Physician: NEWTON ALICIA MD [facility] Screening Digital - 12/30/23 - 1631 Report Status:Signed EXAM: [facility] Screening Digital EXAM DATE AND TIME: 12/30/2023 4:32 PM HISTORY: Annual screening COMPARISON: 11/26/2022 and 11/25/2020 TECHNIQUE: Bilateral digital breast tomosynthesis was performed in the CCand MLO projections. Computer aided detection with Qianmi 3D 3.1was employed. TISSUE DENSITY: b. There [...] MD IMG BI PROCEDURES Final Result * [facility] DEXA AXIAL SKELETON (11/26/2022 8:13 AM EDT) Anatomical Region Laterality Modality Mammography 11/26/2022 7:13 AM EDT Narrative 11/26/2022 8:[address] [facility] Diagnostic Imaging Department [address] [place], [place] [address] Patient: ESPINOZA HATCH /Age/Sex: 1950 - 72 - F Unit#: [id number] Location/Status: [facility] CLI Mnemonic/Ordering Site: [facility] Ordering Physician: NEWTON ALICIA MD Parmj[facility] Dexa Axial Skeleton - [...] probability of hip fracture of 7.6%. Code 74508 Dictating Physician: VIKKI NGO MD Electronically Signed by: VIKKI NGO MD Dic Date/Time: 11/26/22810 Sign date/Time: 11/26/22812 Procedure Note Vikki Ngo MD - 08/16/[address] [facility] Diagnostic Imaging Department [address] [place] [address] Patient: HATCHESPINOZA./Age/Sex: 1950 - 72 - F Unit#: [id number] [facility] Ordering Physician: NEWTON ALICIA MD [facility] Dexa Axial Skeleton - 11/26/22802 HISTORY: The [...] density of the femurs bilaterally is 0.748 gm/vy3ijhae is 74% of that of young normals [...] probability of hip fracture of 7.6%. 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
== END 2025-03-17 14:39 | disposition home or self-care (01) ==
LOC: HO.HCS 13:55
PROVIDERS: PCP Internal Medicine
DX: R09.89 Other specified symptoms and signs involving the circulatory and respiratory systems (principal)
CPT/HCPCS: 99214; G2211

== ENCOUNTER 2025-03-22 00:35 | Emergency (ER) | payer OTHER, SELFPAY ==
[2025-03-22 00:43] VITALS: BP 151/76; PULSE 71; RESP 16; TEMP 36.7; O2SAT 96
[2025-03-22 00:56] VITALS: BP 172/87; PULSE 70; O2SAT 99; BMI 26.6
--- OUTSIDE RECORDS SUMMARY | 2025-03-22 01:11 | XMS_ITS | Clinical Summary ---
Author Organization [address] [facility] Address [address] [place] [address] Phone Care Team Providers Care It Disaster Recovery Manager Name Role Phone Martha Martinez MD Primary Care Provider [phone] Allergies No known active allergies Medications nystatin [...] tip and replace cap. 16 g 5 01/26/20 26 Active fluticasone propionate (FLONASE) 50 mcg/actuation nasal spray Administer 2 sprays into each nostril 1 (one) time each day. Shake gently. Before first use, prime pump. After use, clean tip and replace cap. 16 g 5 01/27/20 26 Active amLODIPine (NORVASC) 5 [...] Care Team Description 02/15/2025 Telephone Internal Medicine [facility] [address] [phone] Martha Martinez MD 02/11/2025 1:47 PM EDT - 02/11/2025 11:59 PM EDT Hospital Encounter [facility] CT Scan [address] [place] [phone] Weight loss; Appetite loss; Nausea; Dizziness Discharge Disposition: Home or Self Care 01/28/2025 Telephone Internal Medicine [facility] [address] [address] Martha Martinez MD 01/27/2025 [place] [facility] [address] [phone] Elida Green [place] 01/26/2025 Telephone Internal Medicine [address] [address] Martha Martinez MD 01/11/2025 Telephone Internal Medicine [facility] [address] [address] Elida Green [place] from Last 3 Months Social History [...] Patients (1 - 1-dose 75+ series) 02/29/2024 Depression Screening 07/15/2024 COVID-19 Vaccine (3 - 2024- season) 2025 11/15/2020, 10/25/2020 Influenza Vaccine (#1) 2025 Hypertension/CHF/CAD Annual BMP [...] Procedure Name Priority Date/Time Associated Diagnosis Comments BORRELIA BURGDORFERI ANTIBODY Routine 03/18/2025 12:[address] CHEST/ABDOMEN/PELVIS W CONTRAST Routine 02/11/2025 2:11 PM EDT Weight loss Appetite loss Nausea Dizziness CBC WITH AUTO DIFFERENTIAL Routine 01/26/2025 3:34 PM EDT Hypertension, unspecified type Anemia, unspecified type CBC AND DIFFERENTIAL Routine 01/26/2025 3:34 PM EDT Hypertension, unspecified type Anemia, unspecified type BASIC METABOLIC PANEL Routine 01/26/2025 3:34 PM EDT Hypertension, unspecified type Anemia, unspecified type [facility] SCREENING DIGITAL Routine 12/31/2023 1:02 PM EDT Encounter for screening mammogram for malignant neoplasm of breast [facility] DEXA AXIAL SKELETON Routine 11/26/2022 8:13 AM EDT Age-related osteoporosis without current pathological fracture from Last 3 Months or Most Recently Relevant to Health Maintenance Results * Borrelia burgdorferi antibody (03/18/2025 12:58 PM EDT) Lyme Ab Negative Negative LAB CHEMISTRY METHOD 03/18/2025 3:15 PM EDT [facility] Comment: No laboratory evidence of infection with B. burgdorferi (Lyme disease). Negative results may occur in patients recently infected (<=14 days) with B. burgdorferi. If recent infection is suspected, repeat testing on a new sample collected in 7- 14 days is recommended. Blood Venous blood specimen / Unknown Venipuncture / Unknown 03/18/2025 12:58 PM EDT 03/18/2025 12:58 PM EDT us Martha Martinez MD LAB BLOOD ORDERABLES Final Res ult [facility] [address] [place] [address], [place] [phone] * CT Chest/Abdomen/Pelvis w Contrast (02/11/2025 2:11 [...] Signed Date: 02/17/2025 08:38 ET Workstation ID: [id number] Transcribed By: Self Edit Transcribed Date: 02/17/2025 [...] Signed Date: 02/17/2025 08:38 ET Workstation ID: [id number] Transcribed By: Self Edit Transcribed Date: 02/17/2025 08:22 ET Martha Martinez MD IM CT PROCEDURES Final Result * CBC auto differential (01/26/2025 3:34 PM EDT) WBC 6.1 4.8 - 10.8 K/mcL LAB HEMETOLOGY METHOD 01/26/2025 6:37 PM EDT [facility] RBC 4.20 3.80 - 4.80 M/mcL LAB HEMETOLOGY METHOD 01/26/2025 6:37 PM EDT [facility] Hemoglobin 12.8 11.5 - 16.0 g/dL LAB HEMETOLOGY METHOD 01/26/2025 6:37 PM EDT [facility] Hematocrit 39.2 35.0 - 47.0 % LAB HEMETOLOGY METHOD 01/26/2025 6:37 PM EDT [facility] MCV 93.3 79.0 - 98.0 FL LAB HEMETOLOGY METHOD 01/26/2025 6:37 PM EDT [facility] MCH 30.5 27.0 - 32.0 pcg LAB HEMETOLOGY METHOD 01/26/2025 6:37 PM EDT [facility] MCHC 32.7 32.0 - 37.0 g/dL LAB HEMETOLOGY METHOD 01/26/2025 6:37 PM EDT [facility] RDW 12.2 11.0 - 15.0 % LAB HEMETOLOGY METHOD 01/26/2025 6:37 PM EDT [facility] Platelets 296 130 - 400 K/mcL LAB [facility]ETOLOGY [facility]25 [facility] MPV 10.5 7.0 - 11.0 FL LAB HEMETOLOGY METHOD [facility]/26[facility]25 6:[facility] NRBC 0.0 <1.0 % LAB HEMETOLOGY METHOD 01/26/2025 6:37 PM EDT [facility] NRBC Absolute 0.00 <0.10 K/mcL LAB HEMETOLOGY METHOD 01/26/2025 6:37 PM EDT [facility] Neutrophils Relative 60.6 % LAB [facility]EMETOLOGY METHOD [facility]/26[facility]2025 6:37 [facility] Lymphocytes Relative 29.5 % LAB HEMETOLOGY METHOD 01/26/2025 6:37 PM EDT [facility] Monocytes Relative 7.7 % LAB HEMETOLOGY METHOD 01/26/2025 6:37 PM EDT [facility] Eosinophils Relative 1.1 % LAB HEMETOLOGY METHOD [facility]/26[facility]2025 6:37 [facility] Basophils Relative 0.8 % LAB HEMETOLOGY METHOD [facility]/26[facility]2025 6:37 [facility] Immature Granulocytes Relative 0.3 % LAB HEMETOLOGY METHOD 01/26/2025 6:37 PM EDT [facility] Neutrophils Absolute 3.71 1.50 - 7.00 K/mcL LAB HEMETOLOGY METHOD 01/26/2025 6:37 PM EDT [facility] Lymphocytes Absolute 1.81 1.00 - 5.00 K/mcL LAB HEMETOLOGY METHOD 01/26/2025 6:37 PM EDT [facility] Monocytes Absolute 0.47 0.20 - 1.00 K/mcL LAB HEMETOLOGY METHOD 01/26/2025 6:37 PM EDT [facility] Eosinophils Absolute 0.07 0.00 - 0.50 K/[facility] LAB HEMETOLOGY METHOD 01/26/2025 6:37 PM EDT [facility] Basophils Absolute 0.05 0.00 - 0.20 K/mcL LAB HEMETOLOGY METHOD 01/26/2025 6:37 PM EDT [facility] Immature Granulocytes Absolute 0.02 0.00 - 0.03 K/[facility] LAB HEMETOLOGY METHOD 01/26/2025 6:37 PM EDT [facility] Blood Venous blood specimen / Unknown Venipuncture / Unknown 01/26/2025 3:34 PM EDT 01/26/2025 3:34 PM EDT us Martha Martinez MD LAB BLOOD ORDERABLES Final Res ult [facility] [address] [place] [address], * Basic metabolic panel (01/26/2025 3:34 PM EDT) Sodium 137 133 - 145 mmol/L LAB CHEMISTRY METHOD 01/26/2025 7:21 PM EDT [facility] Potassium 4.7 3.5 - 5.5 mmol/L LAB CHEMISTRY METHOD 01/26/2025 7:[address] [facility] Chloride 103 96 - 110 mmol/L LAB CHEMISTRY METHOD 01/26/2025 7:[address] [facility] CO2 28 21 - 32 mmol/L LAB CHEMISTRY METHOD 01/26/2025 7:[address] [facility] Anion Gap 6 3 - 11 LAB CHEMISTRY METHOD 01/26/2025 7:[address] [facility] Glucose 85 70 - 100 mg/dL LAB CHEMISTRY METHOD 01/26/2025 7:[address] [facility] BUN 12 5 - 25 mg/dL LAB CHEMISTRY METHOD 01/26/2025 7:[address] [facility] Creatinine 0.65 0.50 - 1.10 mg/dL LAB CHEMISTRY METHOD 01/26/2025 7:[address] [facility] eGFR 92 >=60 mL/min/1. 73m2 LAB CHEMISTRY METHOD 01/26/2025 7:[address] [facility] Comment:Calculation based on the Chronic Kidney Disease Epidemiology Collaboration (CKD-EPI) equation refit without adjustment for race. BUN/Creatinine Ratio 18.5 LAB CHEMISTRY METHOD 01/26/2025 7:[address] [facility] Calcium 9.5 8.5 - 10.5 mg/dL LAB CHEMISTRY METHOD 01/26/2025 7:[address] [facility] Blood Venous blood specimen / Unknown Venipuncture / Unknown 01/26/2025 3:34 PM EDT 01/26/2025 3:34 PM EDT us Martha Martinez MD LAB BLOOD ORDERABLES Final Res ult [facility] [address] [place] [address], * PARMJIT SCREENING DIGITAL (12/31/2023 1:02 PM EDT) Anatomical Region Laterality Modality Mammography 12/30/2023 3:29 PM EDT Narrative 12/31/2023 1:02 PM EDT [facility] Diagnostic Imaging Department [address] [place] [address] Patient: CHAR HATCH /Age/Sex: 1950 - 73 - F Unit#: [id number] [facility]Ordering Site[facility] Ordering Physician: NEWTON ALICIA MD [facility] Screening Digital - 12/30/23 - 1631 Report Status:Signed EXAM: [facility] Screening Digital EXAM DATE AND TIME: 12/30/2023 4:32 PM HISTORY: Annual screening COMPARISON: 11/26/2022 and 11/25/2020 TECHNIQUE: Bilateral digital breast tomosynthesis was performed in the CC and MLO projections. Computer aided detection with MunchAway 3D 3.1 was employed. TISSUE DENSITY: b. [...] Procedure Note Jake Kim MD - 04/29/2024 [facility] Diagnostic Imaging Department [address] [place] [address] Patient: SAFIACHAR.O.B./Age/Sex: 1950 - 73 - F Unit#: [id number] Location/Status: [facility] CLI Mnemonic/Ordering Site: [facility] Ordering Physician: NEWTON ALICIA MD [facility] Screening Digital - 12/30/23 - 1631 Report Status:Signed EXAM: [facility] Screening Digital EXAM DATE AND TIME: 12/30/2023 4:32 PM HISTORY: Annual screening COMPARISON: 11/26/2022 and 11/25/2020 TECHNIQUE: Bilateral digital breast tomosynthesis was performed in the CCand MLO projections. Computer aided detection with MunchAway 3D 3.1was employed. TISSUE DENSITY: b. There [...] MD IMG BI PROCEDURES Final Result * [facility] DEXA AXIAL SKELETON (11/26/2022 8:13 AM EDT) Anatomical Region Laterality Modality Mammography 11/26/2022 7:13 AM EDT Narrative 11/26/2022 8:13 AM EDT [facility] Diagnostic Imaging Department [address] [place], [place] [address] Patient: HATCHCHARO.B./Age/Sex: 1950 - 72 - F Unit#: [id number] [facility] Ordering Physician: NEWTON ALICIA MD [facility] Dexa Axial Skeleton - 11/26/22 0803 HISTORY: The patient is a 72-year-old postmenopausal [...] probability of hip fracture of 7.6%. Code 77231 Dictating Physician: VIKKI NGO MD Electronically Signed by: VIKKI NGO MD Dic Date/Time: 11/26/22810 Sign date/Time: 11/26/22812 Procedure Note Vikki Ngo MD - 08/16/2023 [facility] Diagnostic Imaging Department [address] [place] [address] Patient: HATCHCHAR/Age/Sex: 1950 - 72 - F Unit#: [id number] Location/Status: [facility] Mnemonic/Ordering Site: [facility] Ordering Physician: NEWTON ALICIA MD Parmjit Dexa [...] density of the femurs bilaterally is 0.748 gm/dv1ntnkl is 74% of that of young normals [...] probability of hip fracture of 7.6%. Code 26522 Dictating Physician: VIKKI NGO MD Electronically Signed by: VIKKI NGO MD Dic Date/Time: 11/26/22810 Sign date/Time: 11/26/22812 Newton Alicia MD [facility] BI PROCEDURES Final Result from Last 3 Months or Most Recently Relevant to Health Maintenance Insurance MEDICARE [employer] Care Teams It Disaster Recovery Manager Relationship Specialty Start Date End Date Martha Martinez MD [address] [address] PCP - General Internal Medicine 12/25/24
--- NOTE | 2025-03-22 01:26 | ED.GENADULT ---
HPI - General Adult General Chief complaint: General Medical Stated complaint: Light headed, Dizziness Time Seen by Provider: 03/22/25 00:44 Source: patient, family and EMS Mode of arrival: EMS Limitations: no limitations History of Present Illness ED Provider: Dr. Nydia Valadez HPI narrative: 75-year-old female with a history of orthostasis, labile blood pressures, TIA, hypothyroidism presenting with reportedly low heart rate and lightheadedness. Patient is wearing a Holter monitor and was called by her Holter monitor company to tell her that her heart rate was in the 20s today. This happened at approximately 11 p.m.. Patient admits at that time she was sitting down watching television. Admits that she began to feel lightheaded but never passed out. Has been dealing with lightheadedness over the last several months. This is 1 of the reasons why she is even wearing a Holter monitor. Admits she is followed by the cardiology team who has been managing her labile blood pressures and issues with orthostasis. Admits that she usually has racing heartbeats and has never experienced bradycardia before. Admits that she did not necessarily feel her heart rate was low when the Holter monitor team called. No reported illness including fever, cough or cold-type symptoms, chest pain, difficulty breathing, abdominal pain, nausea or vomiting, bowel changes, urinary complaints, lower extremity edema, skin rashes, known sick contacts or recent travel. Related Data Home Medications ?Medication ?Instructions ?Recorded ?Confirmed levothyroxine 88 mcg tablet 1 tab PO DAILY@0630 03/21/21 12/30/24 alendronate 70 mg tablet 70 mg PO TH 12/30/24 12/30/24 paroxetine HCl 10 mg tablet 10 mg PO QAM 12/30/24 12/30/24 fluticasone propionate 50 1 spray intranasal DAILY 03/17/25 mcg/actuation nasal spray,suspension hydrochlorothiazide 12.5 mg tablet 12.5 mg PO DAILY 03/17/25 Previous Rx's ?Medication ?Instructions ?Recorded blood pressure monitor #1 ea 03/21/21 amlodipine 10 mg tablet 5 mg (1/2 x 10 mg) PO QPM #30 tabs 12/30/24 Allergies Allergy/AdvReac Type Severity Reaction Status Date / Time No Known Allergies Allergy Verified 03/22/25 01:06 Review of Systems Review of Systems: As per HPI, full review of systems performed and negative but for the above mentioned pertinent positives and negatives. [facility] Past Medical History Medical History Dysarthria Hypertension Hyperparathyroidism Surgical History H/O: hysterectomy Family History Family History Mother No problems noted. Father No problems noted. Social History Social History Alcohol intake: current Alcohol intake frequency: holidays/special occasions only Alcohol type: wine Patient Tobacco Use Status: Never used Tobacco Smoked in Last 30 Days: No Use of substances other than those prescribed or required for medical reasons: No Advance Directives: No Advance Directives Information Provided: No Do you have a plan to hurt others: No Plan service: No Current occupational status: employed Physical Exam ED Exam Exam: GENERAL: Chronically ill-appearing, conversant, no acute distress. SKIN: Normal skin color for ethnicity, warm, dry, no rashes noted. HEENT: Normocephalic, atraumatic, no stridor, posterior oropharynx nonerythematous, EOMI. NECK: Soft, supple, full ROM, midline structures nontender, no step-offs, no deformities, no lymphadenopathy. CHEST: Heart regular rate and rhythm, no murmurs, symmetric chest rise and fall. PULMONARY: Clear to auscultation bilaterally, no labored breathing, no wheezes/rhales/ rhonchi. ABDOMINAL: Soft, nondistended, nontender, positive bowel sounds in all quadrants. : Deferred. MUSCULOSKELETAL: Normal tone, full range of motion, no deformities, no peripheral edema. NEURO: Alert and oriented to person, CN II through XII intact, no focal neurologic deficits. PSYCHIATRIC: Flat affect, fluid speech, appropriate demeanor. Vital Signs: Vital Signs - 24 hr 03/22/25 00:43 03/22/25 03:22 Temperature 98.0 F 97.9 F Pulse Rate 71 55 Respiratory Rate 16 13 Blood Pressure 151/76 H 151/85 H Pulse Oximetry 96 96 Oxygen Delivery Method Room Air Room Air BMI result Body Mass Index 26.6 Medical Decision Making Medical Decision Making [facility] Narrative: Patient presenting with chief complaint of lightheadedness and low heart rate measured by her holter monitor.. Differential diagnosis includes symptomatic bradycardia, heart palpitations, electrolyte abnormality, arrhythmia, ACS, thyroid dysfunction, substance use including stimulants such as caffeine, amphetamines, drug toxicity, among many others. Patient is currently being followed by Cardiology for this issue. Her medications have been changed around frequently including a decrease in her amlodipine dose and change to HCTZ. She admits that some of her symptoms are triggered by anxiety. Today she was called by the Holter monitor company to tell her that she was bradycardic. Prior to that, she did not feel as though she was ?symptomatic?. Afterward, she became lightheaded. She has been dealing with this issue for many months and has excellent follow-up with Cardiology. Her workup today has been reassuring including low cardiac enzymes, normal electrolytes and kidney function. Discussed with her the possibility of malfunction of the equipment. 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 Using shared decision making, plan for discharge home to follow-up with primary care and/or specialist. Patient understands and agrees with plan for discharge. Discharged home in stable condition. Differential Diagnosis Differential Diagnoses: The differential diagnosis associated with the presentation includes (As above) Admission/Observation Consideration of admission/observation: Escalation of care including admission/observation considered Lab Data [facility] Lab Attestation statement: I reviewed the patient's lab results. 03/22/25 01:50 03/22/25 01:50 Labs: Lab Results 03/22/25 Range/Units 01:50 WBC 4.8 (4.8-10.8) X10*3/uL RBC 3.86 L (4.20-5.50) X10*6/uL Hgb 12.1 (12.0-16.0) g/dl Hct 33.6 L (37.0-47.0) % MCV 87.0 (80.0-98.0) fL MCH 31.3 (27.0-33.0) pg MCHC 36.0 H (31.0-35.0) g/dl RDW 11.9 (11.0-16.0) % Plt Count 195 (160-400) X10*3/uL MPV 9.8 (9.4-12.3) fL Immature Gran % (Auto) 0.2 (0.0-0.4) % Neut % (Auto) 66.5 (45-73) % Lymph % (Auto) 23.9 (20-40) % Travis % (Auto) 7.3 (2-11) % Eos % (Auto) 1.5 (0-4) % Baso % (Auto) 0.6 (0-2) % Lymph # (Auto) 1.2 (1.2-4.9) X10*3/uL Travis # (Auto) 0.4 (0.1-1.2) X10*3/uL Eos # (Auto) 0.1 (0.0-0.4) X10*3/uL Baso # (Auto) 0.0 (0.0-0.2) X10*3/uL Abs Immat Gran (auto) 0.01 (0.00-0.03) X10*3/uL Absolute Neuts (auto) 3.2 (2.0-8.3) x10*3/uL Absolute Nucleated RBC 0.000 (0.0-0.012) X10*3/uL Nucleated RBC % (auto) 0.0 (0.0-0.2) /100WBC Sodium 142 (135-145) mmol/L Potassium 3.9 (3.3-5.1) mmol/L Chloride 107 (96-108) mmol/L Carbon Dioxide 26 (22-29) mmol/L Anion Gap 13 (12-20) BUN 10 (9-16) mg/dL Creatinine 0.59 (0.5-1.4) mg/dL Estim Creat Clear Calc 86.8 Estimated GFR > 60 Random Glucose 108 (60-115) mg/dL Calcium 8.9 (8.4-10.2) mg/dL Magnesium 2.1 (1.6-2.6) mg/dL Total Bilirubin 0.2 (0.0-1.0) mg/dL AST 23 (5-31) U/L ALT 16 (0-31) U/L Alkaline Phosphatase 77 (39-117) U/L Troponin I High Sens < 2.7 (<3.5-17.0) ng/L Total Protein 6.4 L (6.5-8.0) g/dL Albumin 4.3 (3.5-5.0) g/dL TSH 0.60 (0.32-4.0) uIU/mL Independent Interpretation I performed an independent interpretation of an: EKG Interpretation: My independent interpretation of the ECG reveals normal sinus rhythm with rate of 60, normal axis, normal intervals, no ST elevations or depressions to suggest ischemic changes, relatively unchanged from previous on 02/23/2025. Independent Historian Clinical information obtained from an independent historian. History obtained from or confirmed by: Spouse and EMS External Record Review External record reviewed: Inpatient record and Office record Chronic Conditions Patient?s care impacted by: Hypertension Discharge Plan Discharge Clinical Impression: Bradycardia, unspecified, Episodic lightheadedness Patient Disposition: Home, Self-Care Instructions: Bradycardia (ED), Lightheadedness (ED) Additional Instructions: Follow-up with your process safety engineer today. Call the office to make an appointment to discuss your low heart rate. Return to the emergency department with any new or worsening symptoms including: Worsening lightheadedness even while lying flat, continued low heart rate, passing out completely, fevers greater than 100 degrees, chest pain, difficulty breathing, any new symptom that concerns you. Call 911 with any medical emergency. Prescriptions: No Action levothyroxine 88 mcg tablet 1 tab PO DAILY@0630 (DME) blood pressure monitor Kit See Rx Instructions .Route Qty: 1 0RF Rx Instructions: As directed alendronate 70 mg tablet 70 mg PO TH paroxetine HCl 10 mg tablet 10 mg PO QAM amlodipine 10 mg tablet 5 mg PO QPM Qty: 30 0RF fluticasone propionate 50 mcg/actuation spray,suspension 1 spray intranasal DAILY Rx Instructions: administer into each nostril hydrochlorothiazide 12.5 mg tablet 12.5 mg PO DAILY Interventions: ED Discharge Assessment Last Done: 03/22/25 03:22 Discharge Date/Time: 03/22/25 03:34 Print Language: French
--- NOTE | 2025-03-22 01:29 | ECG_ITS ---
Test Reason : BRADYCARDIA Blood Pressure : */* mmHG Vent. Rate : 60 BPM Atrial Rate : 60 BPM P-R Int : 158 ms QRS Dur : 82 ms QT Int : 444 ms P-R-T Axes : 40 34 52 degrees QTcB Int : 444 ms Normal sinus rhythm Normal ECG When compared with ECG of 23-Feb-2025 08:16, No significant change was found Referred By: Nydia Valadez Electronically Signed By: JERI MONROY MD
[2025-03-22 01:55] LABS: MANUAL DIFF FLAG NO
[2025-03-22 01:57] LABS: Hematocrit 33.6 % (37.0-47.0); Hemoglobin 12.1 g/dl (12.0-16.0); Imm Gran Abs Auto 0.01 X10*3/uL (0.00-0.03); Imm Gran Pct Auto 0.2 % (0.0-0.4); Lymphocytes Absolute Auto 1.2 X10*3/uL (1.2-4.9); Mean Corpuscular HGB Conc 36.0 g/dl (31.0-35.0); Mean Corpuscular Hemoglobin 31.3 pg (27.0-33.0); Mean Corpuscular Volume 87.0 fL (80.0-98.0); NRBC Abs Auto 0.000 X10*3/uL (0.0-0.012); NRBC Pct Auto 0.0 /100WBC (0.0-0.2); Platelet Count 195 X10*3/uL (160-400); Red Blood Count 3.86 X10*6/uL (4.20-5.50); White Blood Count 4.8 X10*3/uL (4.8-10.8)
[2025-03-22 02:16] LABS: Alanine Aminotransferase 16 U/L (0-31); Albumin Level 4.3 g/dL (3.5-5.0); Alkaline Phosphatase 77 U/L (39-117); Anion Gap 13 (12-20); Aspartate Amino Transferase 23 U/L (5-31); Blood Urea Nitrogen 10 mg/dL (9-16); Calcium 8.9 mg/dL (8.4-10.2); Carbon Dioxide 26 mmol/L (22-29); Chloride 107 mmol/L (96-108); Creatinine Clr Calc Pharmacy 86.8; Estimated Glomerular Filt Rate > 60; Magnesium 2.1 mg/dL (1.6-2.6); Potassium 3.9 mmol/L (3.3-5.1); Sodium 142 mmol/L (135-145); Total Protein 6.4 g/dL (6.5-8.0)
[2025-03-22 02:17] LABS: Troponin-I High Sensitivity < 2.7 ng/L (<3.5-17.0)
[2025-03-22 03:22] VITALS: BP 151/85; PULSE 55; RESP 13; TEMP 36.6; O2SAT 96
--- NOTE | 2025-03-22 03:33 | PC.NURSE ---
walked patient out to brother's car. ambulates steadily without assist or increase in baseline lightheadedness. expresses thanks to staff
== END 2025-03-22 03:34 | disposition home or self-care (01) ==
PROVIDERS: Emergency Provider Emergency Medicine; PCP Internal Medicine
DX: R00.1 Bradycardia, unspecified (principal); R42 Dizziness and giddiness; Z79.899 Other long term (current) drug therapy; I10 Essential (primary) hypertension
CPT/HCPCS: 36415; 80053; 83735; 84443; 84484; 85025; 93005; 99283; 99284

== ENCOUNTER → 2025-03-22 01:29 | Outpatient (BNV) | payer OTHER, SELFPAY | PROVIDERS: Emergency Provider Emergency Medicine; PCP Internal Medicine; Visit Provider Internal Medicine Cardiovascular Disease | DX: R00.1 Bradycardia, unspecified (principal) | CPT/HCPCS: 93010 ==

== ENCOUNTER 2025-03-26 13:41 | Outpatient (AMB) | payer OTHER, SELFPAY ==
--- NOTE | 2025-03-26 14:09 | A.OFFVIS_ITS ---
Vital Signs 03/26/25 14:11 Height 5 ft 7 in Weight 141 lb 15.643 oz BMI 22.2 BP 136/72 Blood Pressure Location Lt brachial Position Sitting Pulse 62 Pulse Source Monitor Intake Visit Reasons: ED Follow up Accompanied by: Self / Same As Patient Allergies No Known Allergies Allergy (Verified 03/26/25 14:14) Medication List - Last Reconciled 03/26/25 by Chester Mims NP alendronate 70 mg PO TH amlodipine 5 mg (1/2 x 10 mg) PO QPM blood pressure monitor As directed cetirizine (All Day Allergy (cetirizine)) 10 mg PO DAILY PRN fluticasone propionate 50 mcg/actuation 1 spray intranasal DAILY hydrochlorothiazide 12.5 mg PO DAILY levothyroxine 1 tab PO DAILY@0630 paroxetine HCl 10 mg PO QAM HPI Comments Details: This is a 75-year-old female patient coming in for a hospital discharge follow- up. Patient with a history of hypertension who was recently seen in the office for lightheadedness and at that time was positive for orthostatic hypotension. Patient's medications were appropriately adjusted. Patient also underwent Holter study that showed mild sinus tachycardia with rare ectopies. Patient had requested a 30 day event monitor which patient is currently still wearing it. Given her ongoing symptoms of intermittent dizziness mostly with positional changes, tilt-table test was ordered which patient states is scheduled for next week. While patient was wearing her 30 day Holter monitor, patient had reported lightheadedness with a heart rate of 27 for which patient got a call from [facility] and was sent to ER. It seems that patient around the same time also had pauses in between 3-4 seconds prior to her reporting lightheadednes. Patient states that she was very lightheaded that morning but is unsure if she was sleeping around the time she had the pauses. Patient is otherwise denying any exertional chest pain, shortness of breath, palpitations, orthopnea, PND, leg edema, presyncope or syncope. PFSH Medical History Dysarthria Hypertension Hyperparathyroidism Surgical History H/O: hysterectomy Family History Mother No problems noted. Father No problems noted. Social History Alcohol intake: current Alcohol intake frequency: holidays/special occasions only Alcohol type: wine Patient Tobacco Use Status: Never used Tobacco service: No Current occupational status: employed Review of Systems Const Denies daytime sleepiness, Denies difficulty sleeping, Denies snoring, Denies stops breathing during sleep and Denies weakness Card Denies chest pain, Denies rapid heart rate, Denies irregular heart rhythm, Denies claudication, Denies leg edema, Reports lightheadedness, Reports palp itations, Denies dyspnea, Denies dyspnea on exertion, Denies orthopnea, Denies paroxysmal nocturnal dyspnea and Denies slow heart rate Resp Denies cough, Denies dyspnea, Denies dyspnea on exertion and Denies snoring GI Reports no additional complaints, Denies hematochezia, Denies change in stool character and Denies dyspepsia Musc Denies abnormal gait, Denies muscle weakness and Denies numbness Neuro Denies abnormal gait, Denies numbness and Denies weakness Endo Reports palpitations Physical Exam Vital Signs: Last Vital Signs Pulse 62 03/26/25 14:11 BP 136/72 03/26/25 14:11 BMI result Body Mass Index 22.2 Const General: cooperative, healthy appearing, comfortable and no acute distress Orientation/consciousness: patient oriented x3 HEENT Head: Yes normal to inspection Neck Neck: Yes normal visual inspection, Yes trachea midline and Yes supple Chest Chest palpation & inspection: normal inspection of the chest Resp Effort & Inspection: normal respiratory effort Auscultation: clear to auscultation bilaterally, no crackles, no rales, no rhonchi and no wheezes Cardio Jugular venous distension: no JVD Palpation: normal PMI Rate: regular rate Rhythm: regular rhythm Heart sounds: S1 normal heart sound present, S2 normal heart sound present, no click, no gallops, no murmurs and no rubs Peripheral pulses: Peripheral pulses 2+ throughout GI Inspection: Yes normal to inspection Palpation (GI): Soft to palpation Auscultation: normal bowel sounds Skin General skin exam: no rashes or lesions noted Neuro General: patient oriented x3 Extrem General: Yes normal to inspection, No no pedal edema and No calf tenderness Psych Appearance: grossly normal Mental Status: mental status grossly normal Speech and movement: Normal speech and movement present Office Procedures EKG Details: EKG today showed normal sinus rhythm, rate 62 beats per minute, [place], [place] [id number], Complete Assessment & Plan Assessment & Plan (1) Dizziness: Code(s): R42 - Dizziness and giddiness Category: Medical (2) Bradycardia: Code(s): R00.1 - Bradycardia, unspecified Category: Medical (3) Labile blood pressure: Code(s): R09.89 - Other specified symptoms and signs involving the circulatory and respiratory systems Category: Medical Plan 01/12/2025 -patient underwent a 3 day Holter study that showed underlying sinus rhythm with some rare supraventricular and ventricular ectopies with mild sinus tachycardia. On 03/22 basin operator around 430 a.m. patient started having pauses between 3-4 seconds. Later on 12/11 patient had another 2 episodes of pauses but no symptoms reported with it. Patient around 05:32, reported lightheadedness with a heart rate of 27. Given this finding, we will refer patient out to safety scientist for consultation in regards to pacemaker implantation. We will continue with our plan for tilt-table test next week at [facility]. Patient's heart rate and blood pressure stable today. No changes in medication. Advised continuing to report symptoms with the Holter monitor. Patient is also working with ENT to rule out TMJ given her symptoms also reproducible with certain movements of the jaw. Advised heart healthy diet, regular exercise, med compliance, adequate hydration, avoiding caffeinated beverages, and orthostatic precautions. This note was generated using voice recognition software. While every effort has been made to ensure accuracy and proper surveillance technician, there may be occasional errors that could affect the content or meaning of the described symptoms. Orders: Orders AMB EKG-In Office Today R00.1 - Bradycardia, unspecified Referrals Cardiac Electrophysiology Referral R00.1 - Bradycardia, unspecified, R42 - Dizziness and giddiness Coding Level of Care Code Est Pt Level 4 (39448) Complex EM visit Add On G2211 Diagnoses Dizziness R42 Bradycardia R00.1 Labile blood pressure R09.89 CPT Codes EKG - CPT: 67142-[id number], Complete ([id number]) Time Spent (min) 32 Comment Time spent in reviewing the chart, test results, assessment, counseling and documentation.
[2025-03-26 14:11] VITALS: BP 136/72; PULSE 62; BMI 22.2
--- OUTSIDE RECORDS SUMMARY | 2025-03-26 16:33 | XMS_ITS | Clinical Summary ---
Author Organization [address] [facility] Address [address] [place] [address] Phone Care Team Providers Care License Registration Examiner Name Role Phone Martha Martinez MD Primary Care Provider [phone] Allergies No known active allergies Medications nystatin [...] Care Team Description 02/15/2025 Telephone Internal Medicine [facility] [address] [phone] Martha Martinez MD 02/11/2025 1:47 PM EDT - 02/11/2025 11:59 PM EDT Hospital Encounter [facility] CT Scan [address] [place] [id number] Weight loss; Appetite loss; Nausea; Dizziness Discharge Disposition: Home or Self Care 01/28/2025 Telephone Internal Medicine [facility] [address] [phone] Martha Martinez MD 01/27/2025 [facility] [address] [phone] Elida Green [place] 01/26/2025 Telephone Internal Medicine [address] [phone] Martha Martinez MD 01/11/2025 Telephone Internal Medicine [facility] [address] [phone] Elida Green [place] from Last 3 Months [...] EDT Hypertension, unspecified type Anemia, unspecified type [facility] SCREENING DIGITAL Routine 12/31/2023 1:02 PM EDT Encounter for screening mammogram for malignant neoplasm of breast [facility] DEXA AXIAL SKELETON Routine 11/26/2022 8:13 AM EDT Age-related osteoporosis without current pathological fracture from Last 3 Months or Most Recently Relevant to Health Maintenance Results * Borrelia burgdorferi antibody (03/18/2025 12:58 PM EDT) Lyme Ab Negative Negative LAB CHEMISTRY METHOD 03/18/2025 3:15 PM EDT [facility] Comment: No laboratory evidence of infection [...] MD LAB BLOOD ORDERABLES Final Res ult [facility] ([facility]) [facility] [address] [place] [address], [place] [phone] * CT Chest/Abdomen/Pelvis w Contrast (02/11/2025 2:11 [...] Signed Date: 02/17/2025 08:38 ET Workstation ID: [id number] Transcribed By: Self Edit Transcribed Date: 02/17/2025 [...] Signed Date: 02/17/2025 08:38 ET Workstation ID: [id number] Transcribed By: Self Edit Transcribed Date: 02/17/2025 08:22 ET Martha Martinez MD IM CT PROCEDURES Final Result * CBC auto differential (01/26/2025 3:34 PM EDT) WBC 6.1 4.8 - 10.8 K/mcL LAB HEMETOLOGY METHOD 01/26/2025 6:37 PM EDT [facility] RBC 4.20 3.80 - 4.80 M/mcL LAB HEMETOLOGY METHOD 01/26/2025 6:37 PM EDT [facility] Hemoglobin 12.8 11.5 - 16.0 g/dL LAB HEMETOLOGY METHOD 01/26/2025 6:37 PM EDT [facility] Hematocrit 39.2 35.0 - 47.0 % LAB HEMETOLOGY METHOD 01/26/2025 6:37 PM EDT [facility] MCV 93.3 79.0 - 98.0 FL LAB HEMETOLOGY METHOD 01/26/2025 6:37 PM EDT [facility] MCH 30.5 27.0 - 32.0 pcg LAB HEMETOLOGY METHOD 01/26/2025 6:37 PM EDT [facility] MCHC 32.7 32.0 - 37.0 g/dL LAB HEMETOLOGY METHOD 01/26/2025 6:37 PM EDT [facility] RDW 12.2 11.0 - 15.0 % LAB HEMETOLOGY METHOD 01/26/2025 6:37 PM EDT [facility] Platelets 296 130 - 400 K/mcL LAB [facility] MPV 10.5 7.0 - 11.0 FL LAB HEMETOLOGY METHOD [facility]/26[facility]2025 6[facility] NRBC 0.0 <1.0 % LAB HEMETOLOGY METHOD 01/26/2025 6:37 PM EDT [facility] NRBC Absolute 0.00 <0.10 K/mcL LAB HEMETOLOGY METHOD 01/26/2025 6:37 PM EDT [facility] Neutrophils Relative 60.6 % LAB HEMETOLOGY METHOD [facility]/26[facility]2025 6[facility] Lymphocytes Relative 29.5 % LAB HEMETOLOGY METHOD 01/26/2025 6:37 PM EDT [facility] Monocytes Relative 7.7 % LAB HEMETOLOGY METHOD 01/26/2025 6:37 PM EDT [facility] Eosinophils Relative 1.1 % LAB HEMETOLOGY METHOD [facility]/26[facility]2025 6[facility] Basophils Relative 0.8 % LAB HEMETOLOGY METHOD 01/26/2025 6:37 [facility] Immature Granulocytes Relative 0.3 % LAB HEMETOLOGY METHOD 01/26/2025 6:37 PM EDT [facility] Neutrophils Absolute 3.71 1.50 - 7.00 K/mcL LAB HEMETOLOGY METHOD 01/26/2025 6:37 PM EDT [facility] Lymphocytes Absolute 1.81 1.00 - 5.00 K/mcL LAB HEMETOLOGY METHOD 01/26/2025 6:37 PM EDT [facility] Monocytes Absolute 0.47 0.20 - 1.00 K/mcL LAB HEMETOLOGY METHOD 01/26/2025 6:37 PM EDT [facility] Eosinophils Absolute 0.07 0.00 - 0.50 K/[facility] LAB HEMETOLOGY METHOD 01/26/2025 6:37 PM EDT [facility] Basophils Absolute 0.05 0.00 - 0.20 K/mcL LAB HEMETOLOGY METHOD 01/26/2025 6:37 PM EDT [facility] Immature Granulocytes Absolute 0.02 0.00 - 0.03 K/[facility] LAB HEMETOLOGY METHOD 01/26/2025 6:37 PM EDT [facility] Blood Venous blood specimen / Unknown Venipuncture / Unknown 01/26/2025 3:34 PM EDT 01/26/2025 3:34 PM EDT us Martha Martinez MD LAB BLOOD ORDERABLES Final Res ult [facility] [address] [place] [address], * Basic metabolic panel (01/26/2025 3:34 PM EDT) Sodium 137 133 - 145 mmol/L LAB CHEMISTRY METHOD 01/26/2025 7:21 PM EDT [facility] Potassium 4.7 3.5 - 5.5 mmol/L LAB CHEMISTRY METHOD 01/26/2025 7:21 PM [facility] Chloride 103 96 - 110 mmol/L LAB CHEMISTRY METHOD 01/26/2025 7:21 PM [facility] CO2 28 21 - 32 mmol/L LAB CHEMISTRY METHOD 01/26/2025 7:21 PM [facility] Anion Gap 6 3 - 11 LAB CHEMISTRY METHOD 01/26/2025 7:21 PM [facility] Glucose 85 70 - 100 mg/dL LAB CHEMISTRY METHOD 01/26/2025 7:21 PM [facility] BUN 12 5 - 25 mg/dL LAB CHEMISTRY METHOD 01/26/2025 7:21 PM [facility] Creatinine 0.65 0.50 - 1.10 mg/dL LAB CHEMISTRY METHOD 01/26/2025 7:21 PM [facility] eGFR 92 >=60 mL/min/1. 73m2 LAB CHEMISTRY METHOD 01/26/2025 7:21 PM [facility] Comment:Calculation based on the Chronic Kidney Disease Epidemiology Collaboration (CKD-EPI) equation refit without adjustment for race. BUN/Creatinine Ratio 18.5 LAB CHEMISTRY METHOD 01/26/2025 7:21 PM [facility] Calcium 9.5 8.5 - 10.5 mg/dL LAB CHEMISTRY METHOD 01/26/2025 7:21 PM [facility] Blood Venous blood specimen / Unknown Venipuncture / Unknown 01/26/2025 3:34 PM EDT 01/26/2025 3:34 PM EDT us Martha Martinez MD LAB BLOOD ORDERABLES Final Res ult [facility] [address] [place] [address], * PARMJIT SCREENING DIGITAL (12/31/2023 1:02 PM EDT) Anatomical Region Laterality Modality Mammography 12/30/2023 3:29 PM EDT Narrative 12/31/2023 1:02 PM EDT [facility] Diagnostic Imaging Department [address] [place] [address] Patient: CHAR HATCH /Age/Sex: 1950 - 73 - F Unit#: [id number] [facility]/Ordering Site: [facility] Ordering Physician: NEWTON ALICIA MD [facility] Screening Digital - 12/30/23 - 1631 Report Status:Signed EXAM: [facility] Screening Digital EXAM DATE AND TIME: 12/30/2023 4:32 PM HISTORY: Annual screening COMPARISON: 11/26/2022 and 11/25/2020 TECHNIQUE: Bilateral digital breast tomosynthesis was performed in the CC and MLO projections. Computer aided detection with [employer] 3D 3.1 was employed. TISSUE DENSITY: b. [...] Procedure Note Jake Kim MD - 04/29/2024 [facility] Diagnostic Imaging Department [address] [place] [id number] Patient: SAFIACHAR.O.B./Age/Sex: 1950 - 73 - F Unit#: [id number] Location/Status: [facility] CLI Mnemonic/Ordering Site: [facility] Ordering Physician: NEWTON ALICIA MD [facility] Screening Digital - 12/30/23 - 1631 Report Status:Signed EXAM: [facility] Screening Digital EXAM DATE AND TIME: 12/30/2023 4:32 PM HISTORY: Annual screening COMPARISON: 11/26/2022 and 11/25/2020 TECHNIQUE: Bilateral digital breast tomosynthesis was performed in the CCand MLO projections. Computer aided detection with [employer] 3D 3.1was employed. TISSUE DENSITY: b. There [...] MD IMG BI PROCEDURES Final Result * [facility] DEXA AXIAL SKELETON (11/26/2022 8:13 AM EDT) Anatomical Region Laterality Modality Mammography 11/26/2022 7:13 AM EDT Narrative 11/26/2022 8:13 AM EDT [facility] Diagnostic Imaging Department [address] [place], [place] [id number] Patient: HATCHCHARO.B./Age/Sex: 1950 - 72 - F Unit#: [id number] [facility]Ordering Site: [facility] Ordering Physician: NEWTON ALICIA MD [facility] Dexa Axial Skeleton - 11/26/22 [...] probability of hip fracture of 7.6%. Code 91782 Dictating Physician: VIKKI NGO MD Electronically Signed by: VIKKI NGO MD Dic Date/Time: 11/26/22810 Sign date/Time: 11/26/22812 Procedure Note Vikki Ngo MD - 08/16/2023 [facility] Diagnostic Imaging Department [address] [place] [address] Patient: HATCHCHAR/Age/Sex: 1950 - 72 - F Unit#: [id number] Location/Status: [facility] Mnemonic/Ordering Site: [facility] Ordering Physician: NEWTON ALICIA MD [facility] Dexa [...] density of the femurs bilaterally is 0.748 gm/rd7rftdl is 74% of that of young normals [...] probability of hip fracture of 7.6%. Code 33982 Dictating Physician: VIKKI NGO MD Electronically Signed by: VIKKI NGO MD Dic Date/Time: 11/26/22810 Sign date/Time: 11/26/22812 Newton Alicia MD [facility] BI PROCEDURES Final Result from Last 3 Months or Most Recently Relevant to Health Maintenance Insurance MEDICARE [employer] Care Teams License Registration Examiner Relationship Specialty Start Date End Date Martha Martinez MD [address] [address] PCP - General Internal Medicine 12/25/24
== END 2025-03-26 14:38 | disposition home or self-care (01) ==
LOC: HO.HCS 13:41
PROVIDERS: PCP Internal Medicine
DX: R42 Dizziness and giddiness (principal); R00.1 Bradycardia, unspecified; R09.89 Other specified symptoms and signs involving the circulatory and respiratory systems
CPT/HCPCS: 93010; 99214; G2211

== ENCOUNTER → 2025-03-26 13:41 | Outpatient (BNVA) | payer OTHER, SELFPAY | PROVIDERS: PCP Internal Medicine | DX: R42 Dizziness and giddiness (principal) | CPT/HCPCS: 93005 ==

== ENCOUNTER 2025-04-12 14:25 | Emergency (ER) | payer OTHER, SELFPAY ==
[2025-04-12 14:28] VITALS: BP 165/79; PULSE 64; RESP 16; TEMP 36.6; O2SAT 97; BMI 22.8
--- NOTE | 2025-04-12 14:28 | ED_ITS ---
[facility] - General Adult General Chief complaint: Dizziness Stated complaint: multiple issues Time Seen by Provider: 04/12/25 16:45 Source: patient Mode of arrival: ambulatory Limitations: no limitations History of Present Illness ED Provider: Dr. Mckeon [facility] narrative: This is a 75-year-old female history of labile blood pressure, TIA, vertigo presented hospital today for evaluation of persistent dizziness since November. Patient has had an MRI performed which was negative for any signs of stroke. Patient has follow up with her primary care doctor and ENT regards to her vertiginous symptoms. All her workup has been negative. She is currently on Flonase for possible sinus congestion. She has been taking some meclizine without any alleviation she has been taking some steroids without any alleviation as well. Denies any other neurological symptoms. Denies any weakness in the lower extremity and upper extremities. Denies any paresthesia in the extremities. No trouble with speech. Related Data Home Medications ?Medication ?Instructions ?Recorded ?Confirmed levothyroxine 88 mcg tablet 1 tab PO DAILY@0630 03/26/25 alendronate 70 mg tablet 70 mg PO TH 12/30/24 5 paroxetine HCl 10 mg tablet 10 mg PO QAM 12/30/2403/15 fluticasone propionate 50 1 spray intranasal DAILY 10/0603/26/25 mcg/actuation nasal spray,suspension hydrochlorothiazide 12.5 mg tablet 12.5 mg PO DAILY 03/26/25 cetirizine 10 mg capsule (All Day 10 mg PO DAILY PRN 0 03/26/25 03/26/25 Allergy (cetirizine)) Previous Rx's ?Medication ?Instructions ?Recorded blood pressure monitor #1 ea 03/21/21 amlodipine 10 mg tablet 5 mg (1/2 x 10 mg) PO QPM #3 0 tabs 12/30/24 diazepam 5 mg tablet (Valium) 5 mg PO BID PRN vertigo #14 tabs 04/12/25 prednisone 10 mg tablet 10 mg PO DAILY 7 days #7 tab s 04/12/25 prednisone 20 mg tablet 20 mg PO DAILY 7 days #7 tab s 04/12/25 prednisone 5 mg tablet 5 mg PO DAILY 7 days #7 tabs 04/12/25 Allergies Allergy/AdvReac Type Severity Reaction Status Date / Time No Known Allergies Allergy Verified 04/12/25 14:31 Review of Systems 2 Review of Systems: Pertinent review of systems as mentioned in HPI. All other system otherwise negative. COUNT INCLUDES THE [facility] Past Medical History COUNT INCLUDES THE [facility] Narrative: Medical history as mentioned in HPI Medical History Dysarthria Hypertension Hyperparathyroidism Surgical History H/O: hysterectomy Family History Family History Mother No problems noted. Father No problems noted. Social History Social History Alcohol intake: current Alcohol intake frequency: holidays/special occasions only Alcohol type: wine Patient Tobacco Use Status: Never used Tobacco Smoked in Last 30 Days: No Use of substances other than those prescribed or required for medical reasons: No Advance Directives: No Advance Directives Information Provided: Yes Do you have a plan to hurt others: No Plan service: No Current occupational status: employed Physical Exam ED Exam Exam: General: Pleasant, no distress, interacting appropriately Head: Normacephalic, atraumatic ENT: oral mucosa moist, neck supple, no tracheal deviation, no sign of TM membrane erythema appreciated on exam Cardiovascular: regular rate, regular rhythm, no murmurs, rubbing, gallops Respiratory: CTAB, no wheeze, rales, rhonchi Extremities: No limb pain or swelling, no calf tenderness Neurological: Awake and alert, no facial droop noted, See NIH for stroke evaluation Skin: Warm and dry Psychiatric: Appropriate mood and thoughts Vital Signs: Vital Signs - 24 hr 04/12/25 14:28 04/12/25 16:54 Temperature 97.9 F 97.7 F Pulse Rate 64 63 Respiratory Rate 16 16 Blood Pressure 165/79 H 147/70 H Pulse Oximetry 97 98 Oxygen Delivery Method Room Air Room Air BMI result Body Mass Index 22.8 NIH Stroke Scale Internal: Initial- Upon Arrival Level of Consciousness: Alert Level of Consciousness Questions: Answers both questions correctly Level of Consciousness Commands: Performs both tasks correctly Best Gaze: Normal Visual: No visual loss Facial Palsy: Normal Motor Arm (Right): No drift Motor Arm (Left): No drift Motor Leg (Right): No drift Motor Leg (Left): No drift Limb Ataxia: Absent Sensory: Normal Best Language: No aphasia Dysarthia: Normal Extinction and Inattention: No abnormality Score: 0 Course Course Course Narrative: Rapid medical examination performed in triage by Magaly Devi PA-C. Patient is a 75 year old assigned female at presenting to the emergency department with nausea and lightheadedness. Patient states that she has had lightheadedness / dizziness / nausea for several months and has had several work ups including through out cardiology and [facility] ENT. Patient has MRI results. Detailed physical exam and review of systems are deferred to the substance abuse clinician. EKG and labs ordered. Patient placed back in the waiting room pending room availability and results. Patient's outpatient MRI: Medications Administered Discontinued Medications Generic Name Dose Route Start Last Admin Trade Name Remigioq PRN Reason Stop Dose Admin Diazepam 5 mg 04/12/25 17:39 04/12/25 17:57 Diazepam 5 Mg Tablet PO 04/12/25 17:40 5 mg ONCE ONE Administration Sodium Chloride 1,000 mls @ 999 mls/hr 04/12/25 17:45 04/12/25 18:07 Ns IV 04/12/25 18:45 Not Given .Q1H1M [facility] Medical Decision Making Medical Decision Making [facility] Narrative: This is a 75-year-old female history of vertigo presented hospital today for evaluation of continuous dizziness since November. She denies any chest pain or shortness of breath. Patient stated this vertiginous symptom is worsened when she moves. She had a recent MRI in November that did not show any signs of CVA. Patient's symptoms has been persistent since November. I do not think patient has a stroke. NIH of 0 on exam. No sign of mastoiditis on exam. Patient ear canal did not show any signs of erythema. I think this is benign peripheral vertigo. This may be also vestibular labyrinthitis. Patient has tried meclizine already. We will plan to give patient a bolus IV fluid. We will also plan to give patient some p.o. Valium as well. I performed an Florencio maneuver on the patient. Given the patient a dose of p.o. Valium. She is feeling much improved after maneuver and medication. No sign of significant abnormality on lab work. We will plan to discharge patient home with prednisone taper course. We will also prescribe Valium to take as needed for her vertigo. Encouraged her to follow up with the ENT doctor. Patient agrees and understands this plan all questions were addressed. Differential Diagnosis Differential Diagnoses: The differential diagnosis associated with the presentation includes Labyrinthitis, Meniere's disease, BPPV, CVA Lab Data MDM Lab Attestation statement: I reviewed the patient's lab results. 04/12/25 15:26 04/12/25 15:26 Labs: Lab Results 04/12/25 04/12/25 Range/Units 15:26 15:30 WBC 5.6 (4.8-10.8) X10*3/uL RBC 4.09 L (4.20-5.50) X10*6/uL Hgb 12.7 (12.0-16.0) g/dl Hct 36.4 L (37.0-47.0) % MCV 89.0 (80.0-98.0) fL MCH 31.1 (27.0-33.0) pg MCHC 34.9 (31.0-35.0) g/dl RDW 11.8 (11.0-16.0) % Plt Count 211 (160-400) X10*3/uL MPV 10.0 (9.4-12.3) fL Immature Gran % (Auto) 0.4 (0.0-0.4) % Neut % (Auto) 58.9 (45-73) % Lymph % (Auto) 30.1 (20-40) % Nicholas % (Auto) 8.1 (2-11) % Eos % (Auto) 1.8 (0-4) % Baso % (Auto) 0.7 (0-2) % Lymph # (Auto) 1.7 (1.2-4.9) X10*3/uL Nicholas # (Auto) 0.5 (0.1-1.2) X10*3/uL Eos # (Auto) 0.1 (0.0-0.4) X10*3/uL Baso # (Auto) 0.0 (0.0-0.2) X10*3/uL Abs Immat Gran (auto) 0.02 (0.00-0.03) X10*3/uL Absolute Neuts (auto) 3.3 (2.0-8.3) x10*3/uL Absolute Nucleated RBC 0.000 (0.0-0.012) X10*3/uL Nucleated RBC % (auto) 0.0 (0.0-0.2) /100WBC Sodium 142 (135-145) mmol/L Potassium 4.8 D (3.3-5.1) mmol/L Chloride 107 (96-108) mmol/L Carbon Dioxide 28 (22-29) mmol/L Anion Gap 12 (12-20) BUN 13 (9-16) mg/dL Creatinine 0.64 (0.5-1.4) mg/dL Estim Creat Clear Calc 70.0 Estimated GFR > 60 Random Glucose 87 (60-115) mg/dL Calcium 9.4 (8.4-10.2) mg/dL Magnesium 2.2 (1.6-2.6) mg/dL Total Bilirubin 0.3 (0.0-1.0) mg/dL AST 23 (5-31) U/L ALT 17 (0-31) U/L Alkaline Phosphatase 72 (39-117) U/L Troponin I High Sens < 2.7 (<3.5-17.0) ng/L Total Protein 6.8 (6.5-8.0) g/dL Albumin 4.6 (3.5-5.0) g/dL Urine Color Yellow Urine Appearance Clear Urine pH 7.0 (5.0-9.0) Ur Specific [place] <= 1.005 (1.005-1.025) Urine Protein Negative (Neg-Trace) mg/dL Urine Glucose (UA) Negative (Negative) mg/dL Urine Ketones Negative (Negative) mg/dL Urine Blood Negative (Negative) Urine Nitrite Negative (Negative) Ur Leukocyte Esterase Negative (Negative) Discharge Plan Discharge Clinical Impression: Vertigo Patient Disposition: Home, Self-Care Instructions: Vertigo (ED) Prescriptions: New prednisone 20 mg tablet 20 mg PO DAILY 7 Days Qty: 7 0RF prednisone 10 mg tablet 10 mg PO DAILY 7 Days Qty: 7 0RF Rx Instructions: Take after one week of 20mg daily prednisone as part of taper. prednisone 5 mg tablet 5 mg PO DAILY 7 Days Qty: 7 0RF Rx Instructions: Take after one week of 10mg prednisone as part of taper. diazepam [Valium] 5 mg tablet 5 mg PO BID PRN (Reason: vertigo) Qty: 14 0RF No Action levothyroxine 88 mcg tablet 1 tab PO DAILY@0630 ([facility]) blood pressure monitor Kit See Rx Instructions .Route Qty: 1 0RF Rx Instructions: As directed alendronate 70 mg tablet 70 mg PO TH paroxetine HCl 10 mg tablet 10 mg PO QAM amlodipine 10 mg tablet 5 mg PO QPM Qty: 30 0RF fluticasone propionate 50 mcg/actuation spray,suspension 1 spray intranasal DAILY Rx Instructions: administer into each nostril hydrochlorothiazide 12.5 mg tablet 12.5 mg PO DAILY All Day Allergy (cetirizine) 10 mg capsule 10 mg PO DAILY PRN Print Language: Irish
--- NOTE | 2025-04-12 14:32 | ECG_ITS ---
Test Reason : DIZZINESS Blood Pressure : */* mmHG Vent. Rate : 56 BPM Atrial Rate : 56 BPM P-R Int : 142 ms QRS Dur : 88 ms QT Int : 426 ms P-R-T Axes : 38 27 57 degrees QTcB Int : 411 ms Sinus bradycardia Otherwise normal ECG When compared with ECG of 22-Mar-2025 01:44, No significant change was found Referred By: Magaly Devi Electronically Signed By: REGLA WHEELER
[2025-04-12 15:34] LABS: MANUAL DIFF FLAG NO
[2025-04-12 15:41] LABS: Hematocrit 36.4 % (37.0-47.0); Hemoglobin 12.7 g/dl (12.0-16.0); Imm Gran Abs Auto 0.02 X10*3/uL (0.00-0.03); Imm Gran Pct Auto 0.4 % (0.0-0.4); Lymphocytes Absolute Auto 1.7 X10*3/uL (1.2-4.9); Mean Corpuscular HGB Conc 34.9 g/dl (31.0-35.0); Mean Corpuscular Hemoglobin 31.1 pg (27.0-33.0); Mean Corpuscular Volume 89.0 fL (80.0-98.0); NRBC Abs Auto 0.000 X10*3/uL (0.0-0.012); NRBC Pct Auto 0.0 /100WBC (0.0-0.2); Platelet Count 211 X10*3/uL (160-400); Red Blood Count 4.09 X10*6/uL (4.20-5.50); White Blood Count 5.6 X10*3/uL (4.8-10.8)
[2025-04-12 15:44] LABS: Appearance Urine Clear; Glucose Urine UA Negative (Negative); PH 7.0 (5.0-9.0); Specific Gravity - Urine <= 1.005 (1.005-1.025)
[2025-04-12 15:51] LABS: Alanine Aminotransferase 17 U/L (0-31); Albumin Level 4.6 g/dL (3.5-5.0); Alkaline Phosphatase 72 U/L (39-117); Anion Gap 12 (12-20); Aspartate Amino Transferase 23 U/L (5-31); Blood Urea Nitrogen 13 mg/dL (9-16); Calcium 9.4 mg/dL (8.4-10.2); Carbon Dioxide 28 mmol/L (22-29); Chloride 107 mmol/L (96-108); Creatinine Clr Calc Pharmacy 70.0; Estimated Glomerular Filt Rate > 60; Magnesium 2.2 mg/dL (1.6-2.6); Potassium 4.8 mmol/L (3.3-5.1); Sodium 142 mmol/L (135-145); Total Protein 6.8 g/dL (6.5-8.0)
[2025-04-12 16:01] LABS: Troponin-I High Sensitivity < 2.7 ng/L (<3.5-17.0)
[2025-04-12 16:54] VITALS: BP 147/70; PULSE 63; RESP 16; TEMP 36.5; O2SAT 98
--- NOTE | 2025-04-12 17:01 | PC.NURSE ---
Pt alert and oriented x4. C/o longstanding dizziness and light headedness, past 5 months. Today reports that she has numbness that starts in back of head and radiates to the front. Mild nausea. Neck tenderness on right side, possible mastoid tenderness. Vitals stable on room air. Pt has seen multiple providers for these problems. She reports that she feels unsafe in her home r/t to her dizziness. She does not want to climb stairs. She lives alone, neighbor checks on her.
--- NOTE | 2025-04-12 18:08 | PC.NURSE ---
Pt feels much better, even before diazepam. She wishes to refuse the IVF as she drinks a lot of water already.
== END 2025-04-12 18:00 | disposition home or self-care (01) ==
PROVIDERS: Physician Assistant Medical; Emergency Provider Student in an Organized Health Care Education/Training Program; PCP Internal Medicine
DX: R42 Dizziness and giddiness (principal); R11.0 Nausea; I10 Essential (primary) hypertension; Z79.899 Other long term (current) drug therapy
CPT/HCPCS: 36415; 80053; 81003; 83735; 84484; 85025; 93005; 99284

== ENCOUNTER → 2025-04-12 14:32 | Outpatient (BNV) | payer OTHER, SELFPAY | PROVIDERS: Emergency Provider Student in an Organized Health Care Education/Training Program; PCP Internal Medicine; Visit Provider Internal Medicine | DX: R00.1 Bradycardia, unspecified (principal) | CPT/HCPCS: 93010 ==

== ENCOUNTER 2025-05-13 14:16 | Outpatient (AMB) | payer OTHER, SELFPAY ==
[2025-05-13 14:18] VITALS: BP 134/68; PULSE 68; BMI 23.6
--- NOTE | 2025-05-13 14:18 | A.OFFVIS_ITS ---
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 Patient with a history of hypertension who has been seen in the office for lightheadedness and sinus bradycardia. Given her ongoing symptoms of dizziness, patient was supposed to go under tilt-table study which patient states was not able to be completed due to difficulty with the IV cannulation. Patient was also supposed to meet with EP for discussing possible pacemaker implantation given her pauses in between 3-4 seconds and reporting of lightheadedness with a heart rate of 27. Patient states that she has not received calls from their office yet. Patient is continuing to report intermittent symptoms of dizziness and has been following with ENT as well and trying different medications to see if symptoms improve however she has not noticed any improvement on the Flonase or the prednisone. Patient is otherwise denying any exertional chest pain, shortness of breath, palpitations, orthopnea, PND, leg edema, or syncope. [facility] Medical History Dysarthria Hypertension Hyperparathyroidism Surgical History H/O: hysterectomy Family History Mother No problems noted. Father No problems noted. Social History Alcohol intake: current Alcohol intake frequency: holidays/special occasions only Alcohol type: wine Patient Tobacco Use Status: Never used Tobacco service: No Current occupational status: employed Review of Systems Const Denies daytime sleepiness, Denies difficulty sleeping, Reports fatigue, Denies snoring, Denies stops breathing during sleep and Denies weakness ENT Reports dizziness Card Denies chest pain, Denies rapid heart rate, Denies irregular heart rhythm, Denies claudication, Denies leg edema, Denies lightheadedness, Reports palpitat ions, Denies dyspnea, Denies dyspnea on exertion, Denies orthopnea, Denies paroxysmal nocturnal dyspnea and Denies slow heart rate Resp Denies cough, Denies dyspnea, Denies dyspnea on exertion and Denies snoring GI Reports no additional complaints, Denies hematochezia, Denies change in stool character and Denies dyspepsia Musc Denies abnormal gait, Denies muscle weakness and Denies numbness Neuro Denies abnormal gait, Reports dizziness, Denies numbness and Denies weakness Endo Reports fatigue and Reports palpitations Physical Exam Vital Signs: Last Vital Signs Pulse 68 05/13/25 14:18 BP 134/68 05/13/25 14:18 BMI result Body Mass Index 23.6 Const General: cooperative, healthy appearing, comfortable and no acute distress Orientation/consciousness: patient oriented x3 HEENT Head: Yes normal to inspection Neck Neck: Yes normal visual inspection, Yes trachea midline and Yes supple Chest Chest palpation & inspection: normal inspection of the chest Resp Effort & Inspection: normal respiratory effort Auscultation: clear to auscultation bilaterally, no crackles, no rales, no rhonchi and no wheezes Cardio Jugular venous distension: no JVD Palpation: normal PMI Rate: regular rate Rhythm: regular rhythm Heart sounds: S1 normal heart sound present, S2 normal heart sound present, no click, no gallops, no murmurs and no rubs Peripheral pulses: Peripheral pulses 2+ throughout GI Inspection: Yes normal to inspection Palpation (GI): Soft to palpation Auscultation: normal bowel sounds Skin General skin exam: no rashes or lesions noted Neuro General: patient oriented x3 Extrem General: Yes normal to inspection, No no pedal edema and No calf tenderness Psych Appearance: grossly normal Mental Status: mental status grossly normal Speech and movement: Normal speech and movement present Assessment & Plan Assessment & Plan (1) Dizziness: Code(s): R42 - Dizziness and giddiness Category: Medical (2) Bradycardia: Code(s): R00.1 - Bradycardia, unspecified Category: Medical (3) Labile blood pressure: Code(s): R09.89 - Other specified symptoms and signs involving the circulatory and respiratory systems Category: Medical Plan 01/12/2025 -patient underwent a 3 day Holter study that showed underlying sinus rhythm with some rare supraventricular and ventricular ectopies with mild sinus tachycardia. We had received notification from react diagnosis stating that on 03/22 around 430 a.m. patient started having pauses between 3-4 seconds. Later around 05:30, patient had another 2 episodes of pauses but no symptoms reported with it. Patient around 05:32 an, reported lightheadedness with a heart rate of 27. We still do not have the complete record of her Holter report. We will try to obtain this. Given the above finding, we we have referred patient out to epic anesthesia analyst for consultation in regards to pacemaker implantation. Patient states that she does not have an appointment set and we will reach out with the office. We had planned for a tilt-table study at [facility] however patient was unable to complete it due to difficulty getting an IV in. Patient is going to call to reschedule this. Patient states that she is also following with ENT and trying Flonase as well as prednisone which has not helped. Advised heart healthy diet, regular exercise, med compliance, adequate hydration, avoiding caffeinated beverages, orthostatic precautions, and completing testings prior to next visit. This note was generated using voice recognition software. While every effort has been made to ensure accuracy and proper aluminum welder, there may be occasional errors that could affect the content or meaning of the described symptoms. Coding Level of Care Code Est Pt Level 3 (59109) Complex EM visit Add On G2211 Diagnoses Dizziness R42 Bradycardia R00.1 Labile blood pressure R09.89 Time Spent (min) 29 Comment Time spent in reviewing the chart, test results, assessment, counseling and documentation.
--- OUTSIDE RECORDS SUMMARY | 2025-05-13 17:17 | XMS_ITS | Clinical Summary ---
Author Organization [address] [facility] Address [address] [place] [address] Phone Care Team Providers Care Rn Orthopaedics Name Role Phone Martha Martinez MD Primary Care Provider [phone] Allergies No known active allergies Medications nystatin (MYCOSTATIN) 100,000 unit/mL suspension Take 4 mL by mouth 3 (three) times a day. Swish in mouth and swallow. 280 mL 11/05/19 25 Active Additional Information Patient not taking.Reported on 12/03/2024 PARoxetine (PAXIL) 10 mg tablet Take 1 tablet (10 mg total) by mouth 1 (one) time each day in the morning. 90 each 3 12/04/19 25 Active meclizine (ANTIVERT) 25 mg tablet Take 1 tablet (25 mg total) by mouth 2 (two) times a day if needed for dizziness. 60 tablet 2 01/02/20 25 Active fluticasone propionate (FLONASE) 50 mcg/actuation nasal spray Administer 2 sprays into each nostril 1 (one) time each day. Shake gently. Before first use, prime pump. After use, clean tip and replace cap. 16 g 5 01/26/20 25 026 Active fluticasone propionate (FLONASE) 50 mcg/actuation nasal spray Administer 2 sprays into each nostril 1 (one) time each day. Shake gently. Before first use, prime pump. After use, clean tip and replace cap. 16 g 5 01/27/20 25 026 Active hydroCHLOROthi azide 12.5 mg tablet Take 1 tablet (12.5 mg total) by mouth 1 (one) time each day. 90 each 2 02/27/20 25 Active amLODIPine (NORVASC) 5 mg tablet Take 1 tablet (5 mg total) by mouth 1 (one) time each day. 135 tablet 1 05/10/20 Active amLODIPine (NORVASC) 5 mg tablet Take 1.5 tablets (7.5 mg total) by mouth 1 (one) time each day. 90 each 1 02/10/20 25 025 Discontinued Encounters Date Type Department Care Team Description 03/26/2025 Telephone Internal Medicine [facility] [address] [facility] [address] [place] [phone] T[place] 02/15/2025 Telephone Internal Medicine [facility] [address] [facility] [address] [place] [phone] Martha Martinez MD 02/11/2025 1:47 PM EDT - 02/11/2025 11:59 PM EDT Hospital Encounter [facility] CT Scan [address] [place] [phone] Weight loss; Appetite loss; Nausea; Dizziness Discharge Disposition: Home or Self Care from Last 3 Months Social History Tobacco [...] 12/18/2024 11:45 AM EDT Plan of Treatment Upcoming Encounters Date Type Department Care Team (Late st Contact Info) Description 06/21/2025 4:30 PM EST [facility]ointment [facility] [address] [phone] Health Maintenance Due Date Last Done Comments Pneumococcal Vaccine: 50+ Years (1 of 1 - PCV) 1999 Zoster Vaccines (1 of 2) 1999 Cholesterol Screening (Lipid Panel) 08/20/2019 Falls Risk Assessment 08/20/2019 Hepatitis C Screening 08/20/2019 Social Influencers of Health Screening 08/20/2019 RSV Immunization Adult Patients (1 - 1-dose 75+ series) 02/29/2024 Depression Screening 07/15/2024 COVID-19 Vaccine (3 - season) 2025 11/15/2020, 10/25/2020 Influenza Vaccine (#1) 2025 DTaP,Tdap,and Td Vaccines (2 - Td or [...] EDT Weight loss Appetite loss Nausea Dizziness [facility] SCREENING DIGITAL Routine 12/31/2023 1:02 PM EDT Encounter for screening mammogram for malignant neoplasm of breast [facility] DEXA AXIAL SKELETON Routine 11/26/2022 8:13 AM EDT Age-related osteoporosis without current pathological fracture from Last 3 Months or Most Recently Relevant to Health Maintenance Results * Borrelia burgdorferi antibody (03/18/2025 12:58 PM EDT) Lyme Ab Negative Negative LAB CHEMISTRY METHOD 03/18/2025 3:15 PM EDT [facility] Comment: No laboratory evidence of [...] Final Res ult [facility] [address] [place] [address], * CT Chest/Abdomen/Pelvis w Contrast (02/11/2025 2:11 [...] Signed Date: 02/17/2025 08:38 ET Workstation ID: [id number] Transcribed By: Self Edit Transcribed Date: 02/17/2025 [...] Signed Date: 02/17/2025 08:38 ET Workstation ID: [id number] Transcribed By: Self Edit Transcribed Date: 02/17/2025 08:22 ET us Martha Martinez MD IMG CT PROCEDURES Final Result * [facility] SCREENING DIGITAL (12/31/2023 1:02 PM EDT) Anatomical Region Laterality Modality Mammography 12/30/2023 3:29 PM EDT Narrative 12/31/2023 1:02 PM EDT [facility] Diagnostic Imaging Department [address] [place] [address] Patient: HATCHESPINOZA./Age/Sex: 1950 - 73 - F Unit#: [id number] Location/Status: [facility] CLI Mnemonic/Ordering Site: [facility] Ordering Physician: NEWTON ALICIA MD [facility] Screening Digital - 12/30/23 - 1631 Report Status:Signed EXAM: [facility] Screening Digital EXAM DATE AND TIME: 12/30/2023 4:32 PM HISTORY: Annual screening COMPARISON: 11/26/2022 and 11/25/2020 TECHNIQUE: Bilateral digital breast tomosynthesis was performed in the CC and MLO projections. Computer aided detection with [employer] 3D 3.1 was employed. TISSUE DENSITY: b. [...] Procedure Note Jake Kim MD - 04/29/2024 [facility] Diagnostic Imaging Department [address] [place] [address] Patient: YUSUF HATCHUBALDO Iniguez/Age/Sex: 1950 - 73 - F Unit#: [id number] Location/Status: [facility] CLI Mnemonic/Ordering Site: [facility] Ordering Physician: NEWTON ALICIA MD [facility] Screening Digital - 12/30/23 - 1631 Report Status:Signed EXAM: [facility] Screening Digital EXAM DATE AND TIME: 12/30/2023 4:32 PM HISTORY: Annual screening COMPARISON: 11/26/2022 and 11/25/2020 TECHNIQUE: Bilateral digital breast tomosynthesis was performed in the CCand MLO projections. Computer aided detection with [employer] 3D 3.1was employed. TISSUE DENSITY: b. There [...] Sign date/Time: 12/31/23 1302 Newton Alicia MD [facility] BI PROCEDURES Final Result * [facility] DEXA AXIAL SKELETON (11/26/2022 8:13 AM EDT) Anatomical Region Laterality Modality Mammography 11/26/2022 7:13 AM EDT Narrative 11/26/2022 8:13 AM EDT [facility] Diagnostic Imaging Department [address] [place], [place] [phone] Patient: SAFIAESPINOZA /Age/Sex: 1950 - 72 - F Unit#: [id number] [facility]Ordering Site: [facility] Ordering Physician: NEWTON ALICIA MD [facility] Dexa Axial Skeleton - 11/26/[address] HISTORY: The [...] probability of hip fracture of 7.6%. Code 89743 Dictating Physician: VIKKI NGO MD Electronically Signed by: VIKKI NGO MD Dic Date/Time: 11/26/22810 Sign date/Time: 11/26/22812 Procedure Note Vikki Ngo MD - 08/16/2023 [facility] Diagnostic Imaging Department [address] [place] [address] Patient: SAFIAESPINOZA./Age/Sex: 1950 - 72 - F Unit#: [id number] Location/Status: [facility] CLI [facility] Ordering Physician: NEWTON ALICIA MD [facility] Dexa Axial Skeleton - 11/26/22 - 0803 HISTORY: The patient is a 72-year-old [...] density of the femurs bilaterally is 0.748 gm/kv0feeip is 74% of that of young normals [...] probability of hip fracture of 7.6%. Code 21072 Dictating Physician: VIKKI NGO MD Electronically Signed by: VIKKI NGO MD Dic Date/Time: 11/26/22810 Sign date/Time: 11/26/22812 Newton Alicia MD IMG BI PROCEDURES Final Result from Last 3 Months or Most Recently Relevant to Health Maintenance Insurance MEDICARE [employer] Care Teams Rn Orthopaedics Relationship Specialty Start Date End Date Martha Martinez MD [address] [place] [address] [address] [place] [address] PCP - General Internal Medicine 12/25/24
== END 2025-05-13 15:02 | disposition home or self-care (01) ==
LOC: HO.HCS 14:17
PROVIDERS: PCP Internal Medicine
DX: R42 Dizziness and giddiness (principal); R00.1 Bradycardia, unspecified; R09.89 Other specified symptoms and signs involving the circulatory and respiratory systems
CPT/HCPCS: 99213; G2211

== ENCOUNTER 2025-07-04 23:41 | Emergency (ER) | payer OTHER, SELFPAY ==
--- OUTSIDE RECORDS SUMMARY | 2025-07-01 07:37 | XMS_ITS | Encounter Summary ---
Author Organization [facility] Address [address] [place] [address] Care Team Providers Care Train Attendant Name Role Phone Martha Martinez MD Primary Care Provider [phone] Reason for Visit * Imaging (Routine) - Pending Review Specialty Diagnoses / Procedures Referred By Guy funes Referred To Contact Radiology Diagnoses Encounter for screening mammogram for breast cancer Procedures [facility] Mammo Digital Screening w Adilson bilat [facility], Self Referral [facility] Referral ID Status Reason Start Date Expiration Date V isits Requested Visits Authorized [id number] Pending Review 04/29/2025 04/29/2026 1 1 Encounter Details Date Type Department Care Team (Latest Contact Info) Description 07/01/2025 7:37 AM EST - 07/01/2025 11:59 PM EST [facility] [address] [phone] Arrived Discharge Disposition: Home or Self Care Social History Tobacco Use Types Packs/Day Years Used Date Smoking Tobacco: Never Passive Smoke Exposure: Never Smokeless Tobacco: Never Comments No Sex and Gender Information Value Date Recorded Sex Assigned at Female 12/21/2024 1:51 PM EDT Legal Sex Female 8:58 PM EST Gender Identity Female 12/21/2024 1:51 PM EDT Sexual Orientation Straight 12/21/2024 1: 51 PM EDT documented as of this encounter Last Filed Vital Signs Vital Sign Reading Time Taken Comments Blood Pressure - - Pulse - - Temperature - - Respiratory Rate - - Oxygen Saturation - - Inhaled Oxygen Concentration - - Weight 64.4 kg (142 lb) 07/01/2025 7:52 AM EST Height 167.6 cm (5' 6 ) 07/01/2025 7:52 AM EST Body Mass Index 22.92 07/01/2025 7:52 AM EST documented in this encounter Medications at Time of Discharge amLODIPine (NORVASC) 5 mg tablet Take 1 tablet (5 mg total) by mouth 1 (one) time each day. 90 tablet 1 05/21/2025 fluticasone propionate (FLONASE) 50 mcg/actuation nasal spray Administer 2 sprays into each nostril 1 (one) time each day. Shake gently. Before first use, prime pump. After use, clean tip and replace cap. 16 g 5 01/25/2025 6 fluticasone propionate (FLONASE) 50 mcg/actuation nasal spray Administer 2 sprays into each nostril 1 (one) time each day. Shake gently. Before first use, prime pump. After use, clean tip and replace cap. 16 g 5 01/26/2025 hydroCHLOROthiaz amy 12.5 mg tablet Take 1 tablet (12.5 mg total) by mouth 1 (one) time each day. 90 each 2 05/21/2025 levothyroxine (SYNTHROID, LEVOTHROID) 88 mcg tablet Take 1 tablet (88 mcg total) by mouth 1 (one) time each day. 90 tablet 1 05/20/2025 meclizine (ANTIVERT) 25 mg tablet Take 1 tablet (25 mg total) by mouth 2 (two) times a day if needed for dizziness. 60 tablet 2 01/01/2025 nystatin (MYCOSTATIN) 100,000 unit/mL suspension Take 4 mL by mouth 3 (three) times a day. Swish in mouth and swallow. 280 mL 11/04/2024 PARoxetine (PAXIL) 10 mg tablet Take 1 tablet (10 mg total) by mouth 1 (one) time each day in the morning. 90 each 3 12/03/2024 documented as of this encounter Discharge Disposition Disposition Code Departure Means Destination Home or Self Care documented in this encounter Plan of Treatment Not on file documented as of this encounter Procedures Procedure Name Priority Date/Time Associated Diagnosis Comments MG MAMMO DIGITAL SCREENING W ADILSON BILAT Routine 07/01/2025 8:00 AM EST Encounter for screening mammogram for breast cancer documented in this encounter Results * [facility] Mammo Digital Screening w Adilson bilat (07/01/2025 8:00 AM EST) Anatomical Region Laterality Modality Breast Bilateral Mammography 07/01/2025 8:06 AM EST Impressions 07/01/2025 8:07 AM EST No evidence of breast malignancy. BI-RADS CATEGORY: 1 - NEGATIVE RECOMMENDATION: Screening bilateral mammogram is recommended in 1 year. Mammo Location: [facility], [address] [place] [address], [address], . -------- FINAL REPORT -------- Dictated By: Arti Kim Dictated Date: 07/01/2025 08:06 ET Assigned Physician: Arti Kim Reviewed and Electronically Signed By: Arti Kim Signed Date: 07/01/2025 08:07 ET Workstation ID: [id number] Transcribed By: Self Edit Transcribed Date: 07/01/2025 08:06 ET Narrative 07/01/2025 8:07 AM EST CLINICAL: 75 years old, Female, routine annual exam. COMPARISON: Multiple prior studies dating back to 2020 TECHNIQUE: Bilateral MLO and CC views were obtained digitally with 3-D mammogram (digital breast tomosynthesis). Computer-aided detection was utilized in evaluation of this exam (CAD). FINDINGS: There is no evidence of suspicious mass or architectural distortion. No worrisome calcifications are evident. There has been no significant change from prior exam(s). BREAST DENSITY: B - There are scattered areas of fibroglandular density. Procedure Note Arti Kim MD - 07/01/2025 CLINICAL: 75 years old, Female, routine annual exam. COMPARISON: Multiple prior studies dating back to 2020 TECHNIQUE: Bilateral MLO and CC views were obtained digitally with 3-Dmammogram (digital breast tomosynthesis). Computer-aided detection wasutilized in evaluation of this exam (CAD). FINDINGS: There is no evidence of suspicious mass or architectural distortion. Noworrisome calcifications are evident. There has been no significantchange from prior exam(s). BREAST DENSITY: B - There are scattered areas of fibroglandular density. IMPRESSION: No evidence of breast malignancy. BI-RADS CATEGORY: 1 - NEGATIVE RECOMMENDATION: Screening bilateral mammogram is recommended in 1 year. Mammo Location: [facility], [address] [place] [address], [address], . -------- FINAL REPORT -------- Dictated By: Arti Kim Dictated Date: 07/01/2025 08:06 ET Assigned Physician: Arti Kim Reviewed and Electronically Signed By: Arti Kim Signed Date: 07/01/2025 08:07 ET Workstation ID: [id number] Transcribed By: Self Edit Transcribed Date: 07/01/2025 08:06 ET us Self Referral Sppl IMG BI PROCEDURES Final Resul t documented in this encounter Visit Diagnoses Not on filedocumented in this encounter Care Teams Train Attendant Relationship Specialty Start Date End Date Martha Martinez MD [address] [place] [address] [address] [place] [address] PCP - General Internal Medicine 12/25/24 documented as of this encounter
--- NOTE | 2025-07-04 | ECG_ITS ---
Test Reason : HYPERTENSION Blood Pressure : */* mmHG Vent. Rate : 67 BPM Atrial Rate : 67 BPM P-R Int : 158 ms QRS Dur : 88 ms QT Int : 410 ms P-R-T Axes : 46 31 50 degrees QTcB Int : 433 ms Normal sinus rhythm Normal ECG When compared with ECG of 12-Apr-2025 15:16, No significant change was found Referred By: Generic ED Physician Electronically Signed By: JERI MONROY MD
--- NOTE | ~2025-07-04 | CT_ITS ---
CLINICAL HISTORY: headache, HTN CT head without contrast Comparison: None provided Findings: There is no acute intracranial hemorrhage. Ventricles are within normal limits in size. No mass effect or midline shift is present. The mcdonald-white matter differentiation appears normal. There is mild generalized cerebral atrophy. The visualized portions of the orbits, paranasal sinuses, and mastoids are unremarkable. No fractures are identified. IMPRESSION: No acute intracranial abnormality. This document has been electronically signed by: Triston Serna MD on 07/05/2025 02:21:11
[2025-07-04 23:45] VITALS: BP 160/71; PULSE 75; RESP 20; TEMP 36.8; O2SAT 98; BMI 22.9
--- NOTE | 2025-07-04 23:58 | ED.GENADULT ---
[facility] - General Adult General Chief complaint: Headache Stated complaint: High BP over 200, light headed, dizzy Time Seen by Provider: 07/04/25 23:51 Source: patient Mode of arrival: ambulatory Limitations: no limitations History of Present Illness ED Provider: Dr. Mckeon [facility] narrative: 75-year-old female history of hypertension vertigo presented to ER today for evaluation of elevated blood pressure. Patient stated that she has been having some dizziness and tingling in the top of her head to the front of her head. She noticed that her blood pressure was elevated over 200 systolic. Denies any other symptoms at this time. She has been compliant with her medication. Related Data Home Medications ?Medication ?Instructions ?Recorded ?Confirmed levothyroxine 88 mcg tablet 1 tab PO DAILY@0630 03/21/21 05/13/25 paroxetine HCl 10 mg tablet 10 mg PO QAM 12/30/24 05/13/25 hydrochlorothiazide 12.5 mg tablet 12.5 mg PO DAILY 03/17/25 05/13/25 meclizine 12.5 mg tablet 12.5 mg PO TID PRN 05/13/25 05/13/25 Previous Rx's ?Medication ?Instructions ?Recorded blood pressure monitor #1 ea 03/21/21 amlodipine 10 mg tablet 5 mg (1/2 x 10 mg) PO QPM #30 tabs 12/30/24 diazepam 5 mg tablet (Valium) 5 mg PO BID PRN vertigo #14 tabs 04/12/25 Allergies Allergy/AdvReac Type Severity Reaction Status Date / Time No Known Allergies Allergy Verified 07/04/25 23:48 Review of Systems Review of Systems: Pertinent review of systems as mentioned in HPI. All other system otherwise negative. [facility] Past Medical History [facility] Narrative: Medical history as mentioned in HPI Medical History Dysarthria Hypertension Hyperparathyroidism Surgical History H/O: hysterectomy Family History Family History Mother No problems noted. Father No problems noted. Social History Social History Alcohol intake: current Alcohol intake frequency: holidays/special occasions only Alcohol type: wine Patient Tobacco Use Status: Never used Tobacco Smoked in Last 30 Days: No Use of substances other than those prescribed or required for medical reasons: No Advance Directives: No Advance Directives Information Provided: No service: No Current occupational status: employed Physical Exam ED Exam Exam: General: Pleasant, no distress, interacting appropriately Head: Normacephalic, atraumatic ENT: oral mucosa moist, neck supple, no tracheal deviation Cardiovascular: regular rate, regular rhythm, no murmurs, rubbing, gallops Respiratory: CTAB, no wheeze, rales, rhonchi Neurological: Awake and alert, no facial droop noted, no focal neurological deficit Skin: Warm and dry Psychiatric: Appropriate mood and thoughts Vital Signs: Vital Signs - 24 hr 07/04/25 23:45 07/05/25 01:27 07/05/25 02:04 Temperature 98.3 F 98.1 F Pulse Rate 75 63 61 Respiratory Rate 20 11 L 18 Blood Pressure 160/71 H 143/87 H 125/63 Pulse Oximetry 98 98 95 Oxygen Delivery Method Room Air Room Air Room Air BMI result Body Mass Index 22.9 Medical Decision Making Medical Decision Making [facility] Narrative: 75-year-old female presented hospital today for evaluation of numbness on top of her head. Given her elevated blood pressure. Discussed with the patient about possible CT head. We will obtain a CT head for the patient. We will obtain lab work as well to assess for any signs of end-organ damage. Patient has no objective neurological symptoms on exam. CBC is unremarkable, chemistries unremarkable. Patient's EKG did not show any signs of STEMI. Lab work did not show any signs of end-organ damage. CT head is negative. We will plan to discharge patient does time. Differential Diagnosis Differential Diagnoses: The differential diagnosis associated with the presentation includes Intracranial bleed, hypertension, CAPRI Lab Data [facility] Lab Attestation statement: I reviewed the patient's lab results. 07/04/25 23:57 07/04/25 23:57 Labs: Lab Results 07/04/25 Range/Units 23:57 WBC 5.5 (4.8-10.8) X10*3/uL RBC 4.06 L (4.20-5.50) X10*6/uL Hgb 12.7 (12.0-16.0) g/dl Hct 36.0 L (37.0-47.0) % MCV 88.7 (80.0-98.0) fL MCH 31.3 (27.0-33.0) pg MCHC 35.3 H (31.0-35.0) g/dl RDW 11.7 (11.0-16.0) % Plt Count 223 (160-400) X10*3/uL MPV 10.0 (9.4-12.3) fL Immature Gran % (Auto) 0.0 (0.0-0.4) % Neut % (Auto) 46.1 (45-73) % Lymph % (Auto) 41.8 H (20-40) % Mariposa % (Auto) 9.2 (2-11) % Eos % (Auto) 2.0 (0-4) % Baso % (Auto) 0.9 (0-2) % Lymph # (Auto) 2.3 (1.2-4.9) X10*3/uL [place]osa # (Auto) 0.5 (0.1-1.2) X10*3/uL Eos # (Auto) 0.1 (0.0-0.4) X10*3/uL Baso # (Auto) 0.1 (0.0-0.2) X10*3/uL Abs Immat Gran (auto) 0.00 (0.00-0.03) X10*3/uL Absolute Neuts (auto) 2.5 (2.0-8.3) x10*3/uL Absolute Nucleated RBC 0.000 (0.0-0.012) X10*3/uL Nucleated RBC % (auto) 0.0 (0.0-0.2) /100WBC Sodium 143 (135-145) mmol/L Potassium 3.7 D (3.3-5.1) mmol/L Chloride 107 (96-108) mmol/L Carbon Dioxide 25 (22-29) mmol/L Anion Gap 15 (12-20) BUN 18 H (9-16) mg/dL Creatinine 0.71 (0.5-1.4) mg/dL Estim Creat Clear Calc 63.1 Estimated GFR > 60 Random Glucose 106 (60-115) mg/dL Calcium 9.5 (8.4-10.2) mg/dL Total Bilirubin 0.4 (0.0-1.0) mg/dL AST 22 (5-31) U/L ALT 12 (0-31) U/L Alkaline Phosphatase 78 (39-117) U/L Troponin I High Sens < 2.7 (<3.5-17.0) ng/L Total Protein 6.6 (6.5-8.0) g/dL Albumin 4.7 (3.5-5.0) g/dL Independent Interpretation I performed an independent interpretation of an: CT Scan Radiology Impression Discussion of test interpretation with radiology: I have reviewed the radiologist's reading. Discharge Plan Discharge Clinical Impression: Benign essential HTN Patient Disposition: Home, Self-Care Instructions: Chronic Hypertension (ED) Additional Instructions: Follow up with your primary care doctor for your elevated blood pressure. Lab work here did not show any signs of end organ damage and CT head did not show any signs of bleed. Prescriptions: No Action levothyroxine 88 mcg tablet 1 tab PO DAILY@0630 [place] blood pressure monitor Kit See Rx Instructions .Route Qty: 1 0RF Rx Instructions: As directed diazepam [Valium] 5 mg tablet 5 mg PO BID PRN (Reason: vertigo) Qty: 14 0RF paroxetine HCl 10 mg tablet 10 mg PO QAM amlodipine 10 mg tablet 5 mg PO QPM Qty: 30 0RF hydrochlorothiazide 12.5 mg tablet 12.5 mg PO DAILY meclizine 12.5 mg tablet 12.5 mg PO TID PRN Print Language: Bolivian
[2025-07-05 00:01] LABS: MANUAL DIFF FLAG NO
[2025-07-05 00:05] LABS: Hematocrit 36.0 % (37.0-47.0); Hemoglobin 12.7 g/dl (12.0-16.0); Imm Gran Abs Auto 0.00 X10*3/uL (0.00-0.03); Imm Gran Pct Auto 0.0 % (0.0-0.4); Lymphocytes Absolute Auto 2.3 X10*3/uL (1.2-4.9); Mean Corpuscular HGB Conc 35.3 g/dl (31.0-35.0); Mean Corpuscular Hemoglobin 31.3 pg (27.0-33.0); Mean Corpuscular Volume 88.7 fL (80.0-98.0); NRBC Abs Auto 0.000 X10*3/uL (0.0-0.012); NRBC Pct Auto 0.0 /100WBC (0.0-0.2); Platelet Count 223 X10*3/uL (160-400); Red Blood Count 4.06 X10*6/uL (4.20-5.50); White Blood Count 5.5 X10*3/uL (4.8-10.8)
--- OUTSIDE RECORDS SUMMARY | 2025-07-05 00:08 | XMS_ITS | Clinical Summary ---
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 90 tablet 1 5 Active hydroCHLOROthia zide 12.5 mg tablet Take 1 tablet (12.5 mg total) by mouth 1 (one) time each day. 90 each 2 5 Active amLODIPine (NORVASC) 5 mg tablet Take 1 tablet (5 mg total) by mouth 1 (one) time each day. 90 tablet 1 5 Active Encounters Date Type Department Care Team Description 07/01/2025 7:37 AM EST - 07/01/2025 11:59 PM EST Hospital Encounter [facility] at [address] [address] Arrived Discharge Disposition: Home or Self Care from Last 3 Months Social History Tobacco Use Types Packs/Day Years Used Date Smoking Tobacco: Never Passive Smoke Exposure: Never Smokeless Tobacco: Never Tobacco Cessation:Counseling Given: Not Answered Comments No Sex and Gender Information Value Date Recorded Sex Assigned at Female 12/21/2024 1:51 PM EDT Legal Sex Female 8:58 PM EST Gender Identity Female 12/21/2024 1:51 PM EDT Sexual Orientation Straight 12/21/2024 1: 51 PM EDT Obstetrics History Para Term AB IAB SAB Ectopic Multiple Livin g Live Births 2 Last Filed Vital Signs Vital Sign Reading Time Taken Comments Blood Pressure 118/70 12/18/2024 11:45 AM EDT Pulse 65 12/03/2024 9:50 AM EDT Temperature 36.2 C (97.1 F) 12/03/2024 9:50 AM EDT Respiratory Rate - - Oxygen Saturation 100% 12/03/2024 9:50 AM EDT Inhaled Oxygen Concentration - - Weight 64.4 kg (142 lb) 07/01/2025 7:52 AM EST Height 167.6 cm (5' 6 ) 07/01/2025 7:52 AM EST Body Mass Index 22.92 07/01/2025 7:52 AM EST Plan of Treatment Health Maintenance Due Date [...] 11/26/2022, 11/25/2020, 09/13/2017 Breast Cancer Screening Discontinued 07/01/20, 12/31/2023, 11/26/2022, Additional history exists HIB Vaccines Aged Out [...] Encounter for screening mammogram for breast cancer ECG Routine 06/03/2025 11:01 AM EST BASIC METABOLIC PANEL Routine 01/26/2025 3:34 PM EDT Hypertension, unspecified type Anemia, unspecified type [facility] DEXA AXIAL SKELETON Routine 11/26/2022 8:13 AM EDT Age-related osteoporosis without current pathological fracture from Last 3 Months or Most Recently Relevant to Health Maintenance Results * MG Mammo Digital Screening w Adilson bilat (07/01/2025 8:00 AM EST) Anatomical Region Laterality Modality Breast Bilateral Mammography 07/01/2025 8:06 AM EST Impressions 07/01/2025 8:07 AM EST No evidence of breast malignancy. BI-RADS CATEGORY: 1 - NEGATIVE RECOMMENDATION: Screening bilateral mammogram is recommended in 1 year. Mammo Location: [facility], [address] [place] [address], [id number], . -------- FINAL REPORT -------- Dictated By: Arti Kim Dictated Date: 07/01/2025 08:06 ET Assigned Physician: Arti Kim Reviewed and Electronically Signed By: Arti Kim Signed Date: 07/01/2025 08:07 ET Workstation ID: [id number] Transcribed By: Self Edit Transcribed Date: 07/01/2025 [...] year. Mammo Location: [facility], [address] [place] [address], [id number], . -------- FINAL REPORT -------- Dictated By: Arti Kim Dictated Date: 07/01/2025 08:06 ET Assigned Physician: Arti Kim Reviewed and Electronically Signed By: Arti Kim Signed Date: 07/01/2025 08:07 ET Workstation ID: [id number] Transcribed By: Self Edit Transcribed Date: 07/01/2025 08:06 ET us Self Referral Sppl IMG BI PROCEDURES Final Resul t * ECG (06/03/2025 11:01 AM EST) us Martha Martinez MD ECG ORDERABLES Final Result * Basic metabolic panel (01/26/2025 3:34 PM EDT) Sodium 137 133 - 145 mmol/L LAB CHEMISTRY METHOD 01/26/2025 7:21 PM EDT [facility] Potassium 4.7 3.5 - 5.5 mmol/L LAB CHEMISTRY METHOD 01/26/2025 7:21 PM T [facility] Chloride 103 96 - 110 mmol/L LAB CHEMISTRY METHOD 01/26/2025 7:21 PM [facility] CO2 28 21 - 32 mmol/L LAB CHEMISTRY METHOD 01/26/2025 7:21 PM T [facility] Anion Gap 6 3 - 11 LAB CHEMISTRY METHOD 01/26/2025 7:21 PM T [facility] Glucose 85 70 - 100 mg/dL LAB CHEMISTRY METHOD 01/26/2025 7:21 PM EDT [facility] BUN 12 5 - 25 mg/dL LAB CHEMISTRY METHOD 01/26/2025 7:21 PM EDT [facility] Creatinine 0.65 0.50 - 1.10 mg/dL LAB CHEMISTRY METHOD 01/26/2025 7:21 PM EDT [facility] eGFR 92 >=60 mL/min/1. 73m2 LAB CHEMISTRY METHOD 01/26/2025 7:21 PM EDT [facility] Comment:Calculation based on the Chronic Kidney Disease Epidemiology Collaboration (CKD-EPI) equation refit without adjustment for race. BUN/Creatinine Ratio 18.5 LAB CHEMISTRY METHOD 01/26/2025 7:21 PM EDT [facility] Calcium 9.5 8.5 - 10.5 mg/dL LAB CHEMISTRY METHOD 01/26/2025 7:21 PM EDT [facility] Blood Venous blood specimen / Unknown Venipuncture / Unknown 01/26/2025 3:34 PM EDT 01/26/2025 3:34 PM EDT us Martha Martinez MD LAB BLOOD ORDERABLES Final Res ult [facility] [address] [place] [address], * PARMJIT DEXA AXIAL SKELETON (11/26/2022 8:13 AM EDT) Anatomical Region Laterality Modality Mammography 11/26/2022 7:13 AM EDT Narrative 11/26/2022 8:13 AM EDT [facility] Diagnostic Imaging Department [address] [place] [address] Patient: ESPINOZA HATCHO.B./Age/Sex: 1950 - 72 - F Unit#: [id number] Location/Status: [facility]em[facility] Ordering Physician: NEWTON RAYO MD [facility] Dexa Axial Skeleton - 11/26/22802 [...] probability of hip fracture of 7.6%. Code 96154 Dictating Physician: VIKKI NGO MD Electronically Signed by: VIKKI NGO MD Dic Date/Time: 11/26/22810 Sign date/Time: 11/26/22812 Procedure Note Vikki Ngo MD - 08/16/2023 [facility] Diagnostic Imaging Department [address] [place] [id number] Patient: SAFIAESPINOZA D.O.B./Age/Sex: 1950 72 - F Unit#: [id number] Location/Status: [facility]AM/REG CLI [facility]em[facility] Ordering Physician: NEWTON RAYO MD [facility] Dexa Axial Skeleton - 11/26/22802 [...] density of the femurs bilaterally is 0.748 gm/se5hvbox is 74% of that of young normals [...] probability of hip fracture of 7.6%. 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
[2025-07-05 00:16] LABS: Alanine Aminotransferase 12 U/L (0-31); Albumin Level 4.7 g/dL (3.5-5.0); Alkaline Phosphatase 78 U/L (39-117); Anion Gap 15 (12-20); Aspartate Amino Transferase 22 U/L (5-31); Blood Urea Nitrogen 18 mg/dL (9-16); Calcium 9.5 mg/dL (8.4-10.2); Carbon Dioxide 25 mmol/L (22-29); Chloride 107 mmol/L (96-108); Creatinine Clr Calc Pharmacy 63.1; Estimated Glomerular Filt Rate > 60; Potassium 3.7 mmol/L (3.3-5.1); Sodium 143 mmol/L (135-145); Total Protein 6.6 g/dL (6.5-8.0)
[2025-07-05 00:23] LABS: Troponin-I High Sensitivity < 2.7 ng/L (<3.5-17.0)
[2025-07-05 01:27] VITALS: BP 143/87; PULSE 63; RESP 11; TEMP 36.7; O2SAT 98
[2025-07-05 02:04] VITALS: BP 125/63; PULSE 61; RESP 18; O2SAT 95
--- NOTE | 2025-07-05 02:11 | PC.NURSE ---
Patient awake and alert. skin pwd, resp even and non labored, speaking in full, clear sentences. NSR via tele. reports waking up out of her sleep this evening with a 10/10 dull headache, dizziness, right and left sided facial tingling and HTN lasting approx 45 minutes. patients BP improved at this time, states headache is now a 5/10, intermittent tingling in both sideds of face. neuros intact. awaiting results of CT.
[2025-07-05 02:53] VITALS: BP 125/63; PULSE 61; RESP 18; TEMP 36.6; O2SAT 95
== END 2025-07-05 02:54 | disposition home or self-care (01) ==
PROVIDERS: Emergency Provider Student in an Organized Health Care Education/Training Program; PCP Internal Medicine
DX: R42 Dizziness and giddiness (principal); I10 Essential (primary) hypertension; R51.9 Headache, unspecified; Z79.899 Other long term (current) drug therapy
CPT/HCPCS: 36415; 70450; 80053; 84484; 85025; 93005; 99284; 99285

== ENCOUNTER → 2025-07-04 | Outpatient (BNV) | payer OTHER, SELFPAY | PROVIDERS: Emergency Provider Student in an Organized Health Care Education/Training Program; PCP Internal Medicine; Visit Provider Internal Medicine Cardiovascular Disease | DX: I10 Essential (primary) hypertension (principal) | CPT/HCPCS: 93010 ==

== ENCOUNTER → 2025-07-05 01:03 | Outpatient (BNV) | payer OTHER, SELFPAY | PROVIDERS: Emergency Provider Student in an Organized Health Care Education/Training Program; PCP Internal Medicine; Visit Provider Radiology Diagnostic Radiology | DX: R51.9 Headache, unspecified (principal); I10 Essential (primary) hypertension | CPT/HCPCS: 70450 ==